=== PATIENT | female | born 1950 | race Caucasian/White ===

== ENCOUNTER 2018-01-07 15:55 | Inpatient (IN) | payer MEDICARE, SELFPAY ==
[2018-01-07] VITALS (28 sets, daily range): BP systolic 53–133; BP diastolic 36–92; PULSE 61–107; RESP 16–27; TEMP 36.4–37; O2SAT 85–100; BMI 16.9; BMI 18.1
--- NOTE | 2018-01-07 16:16 | EKG12_ITS ---
Test Reason : Blood Pressure : / mmHG Vent. Rate : 084 BPM Atrial Rate : 084 BPM P-R Int : 130 ms QRS Dur : 084 ms QT Int : 400 ms P-R-T Axes : -26 035 070 degrees QTc Int : 472 ms Normal sinus rhythm Normal ECG Confirmed by RACHEL HARMAN, HENRRY ([id number]), medical transcription editor GONZÁLEZ MCGRATH ([id number]) on 01/10/2018 2:55:25 PM Referred By: Estela Ferguson Confirmed By:HENRRY RAMOS MD
[2018-01-07] MEDS: 0.9% Normal Saline 1,000 ML 1000 ML IV (16:27)
[2018-01-07] MEDS: Ipratropium/Albuterol Sulfate 3 ML AMPUL.NEB INHALATION (16:36)
[2018-01-07] MEDS: Albuterol 2.5 MG/3 ML VIAL.NEB. INHALATION ×3 (16:36→17:21)
[2018-01-07 16:54] LABS: Absolute Lymphocyte Count 0.61 X10^3/ul (0.83-4.51); Absolute Neutrophil Count 16.8 X10^3/uL (2.0-7.7); Basophil# 0.02 X10^3/uL; Basophil% 0.1 % (0-1); Eosinophil# 0.01 X10^3/uL; Eosinophils% 0.1 % (0-5); Hematocrit 35.5 % (37-47); Hemoglobin 11.6 g/dl (12.0-15.0); Lymphocyte # 0.61 X10^3/ul (4.0); Lymphocyte % 3.3 % (19-41); Mean Corp Hgb Conc 32.7 g/gl (32-36); Mean Corpuscular Hgb 31.1 pg (27.0-32.0); Mean Corpuscular Volume 95.2 fL (81-99); Mean Platelet Vol. 9.4 fl (6.2-12.0); Monocyte# 1.11 X10^3/uL; Neutrophil # 16.84 X10^3/uL (2.7-7.7); Neutrophil % 90.2 % (47-70); POSITIVE COUNT NO; POSITIVE DIFFERENTIAL NO; POSITIVE MORPHOLOGY NO; Platelet Count 478 K/mm3 (150-450); RBC Distribution Width CV 12.5 % (11.6-14.6); RBC Distribution Width SD 42.1 fl (35.1-43.9); Red Blood Count 3.73 M/mm3 (4.2-5.4); White Blood Count 18.6 K/mm3 (4.4-11.0)
[2018-01-07 17:01] LABS: Base Excess 3 mmol/L (-2 to +2); Bicarbonate 27.7 mmol/L (22-26); Blood Gas Specimen Type ART; O2 Delivery Device Nasal Can; PO2 93 mmHG (75-100); SITE L Brachial; SO2 97 % (95-99); Time Given 1656; Total Carbon Dioxide 29 mmol/L; pCO2 43.9 mmHg (35-45); pH 7.41 (7.35-7.45)
[2018-01-07 17:10] LABS: AST(SGOT) 60 U/L (15-37); Alanine Aminotransfer ALT/SGPT 33 U/L (13-56); Albumin, Serum 2.5 g/dL (3.2-5.0); Alkaline Phosphatase 127 U/L (45-117); Anion Gap 8 (5-15); BUN 22 mg/dL (7-18); BUN/Creat Ratio 21.6 RATIO (10-20); Bilirubin, Direct < 0.05 mg/dL (0.00-0.30); Calcium,Total 9.2 mg/dL (8.5-10.1); Chloride 98 mmol/L (98-107); Creatinine, Serum 1.02 mg/dL (0.55-1.02); EST Glomerular Filtration Rate 57 mL/min (>60); Est Glom Filt Rate - Afr Amer 69 mL/min (>60); Estimated Creatinine Clearance 33.55 ml/min; Globulin 5.4 g/dL (2.2-4.2); Glucose 111 mg/dL (74-106); Lactic Acid 3.1 mmol/L (0.4-2.0); Potassium 3.8 mmol/L (3.5-5.1); Protein, Total 7.9 g/dL (6.4-8.2); Sodium Level 134 mmol/L (136-145)
--- NOTE | 2018-01-07 17:10 | RAD_ITS ---
STUDY: X-RAY CHEST REASON FOR EXAM: Female, 67 years old. Respiratory distress wheezing TECHNIQUE: PA and lateral views of the chest. COMPARISON: December 04, 2013 chest x-ray FINDINGS: There is a mass in the left upper lobe measuring 5.2 x 4.5 cm. There is a stable well-circumscribed nodular density in the right lower lobe measuring 4.1 mm. There is hyperinflation of the lungs. There are areas of emphysematous change. There is no demonstrated pleural abnormality. Normal size heart. Normal mediastinum and nancy. Normal visualized pulmonary arteries. Normal visualized aortic arch and descending thoracic aorta. Normal visualized thoracic spine. Normal visualized ribs, clavicles, and shoulders. There is no demonstrated abnormality of the visualized soft tissue structures of the upper abdomen. RAD/Chest PA and Lateral IMPRESSION: There is a new left upper lobe masslike density which may represent infection in an area of prior emphysematous change however lung cancer should be excluded. Recommend CT scan of the chest. Pulmonary emphysema chronic obstructive pulmonary disease. N.B. : The above information has been verbally conveyed by Razia Zuniga MD to Dr Jacques, Referring Physician, on 01/07/2018 17:34:03 (ET). Electronically Signed: Razia Zuniga MD at 17:30 EST Tel , Service support , N.B. : The above information has been verbally conveyed by Razia Zuniga MD to Dr Jacques, Referring Physician, on 01/07/2018 17:34:03 (ET).
--- NOTE | 2018-01-07 17:59 | PCM.HP.STD ---
Problem List (1) Septic shock Status: Acute (2) PNA (pneumonia) Status: Acute (3) Lung mass Status: Chronic (4) HTN (hypertension) Status: Chronic (5) COPD (chronic obstructive pulmonary disease) Status: Chronic (6) Hypoxia Status: Acute (7) Nicotine abuse Status: Acute (8) History of TIA (transient ischemic attack) Status: Acute History of Present Illness Date of Admission: 01/07/18 Chief Complaint: dizzy, abnormal CT The patient is a 67 year old F with a heavy smoking hx since age 10, currently 1 ppd, who presented to the ER after being told to come here by [facility] for an abnormal CT. She presented to the ER with dizziness and a cough. The CT she was sent for showed a MAX mass. She had a CXR which demonstrated a MAX mass. She has been dizzy for about a day. She notes that she has had an intermittent cough productive of clear sputum only. She has left sided chest pain when she coughs. She was placed on prednisone and albuterol about a week ago. In the ER she was hypotensive regardless of fluid administration, she had not taken her BP meds today. She does not normally use O2. She had recently been diagnosed with COPD. She continues to smoke 1 ppd. She denies recent fevers, chills, or night sweats. She has noticed a 20 pound weight loss since Mik. Past Medical History Past Medical History (Chronic Problems): Chronic Problems HTN (hypertension) (Chronic) COPD (chronic obstructive pulmonary disease) (Chronic) Lung mass (Chronic) Allergies JAZMINE Inhibitors Allergy (Verified 01/07/18 16:07) Angioedema erythromycin base Allergy (Verified 01/07/18 16:07) Hives vitamin A [From Retinol] Allergy (Verified 01/07/18 16:07) Itching Home Medications: Ambulatory Orders Medication Instructions Recorded Atorvastatin Calcium [Lipitor] 40 mg PO QHS 01/07/18 Azithromycin [Azithromycin] 250 mg PO DAILY 01/07/18 Clopidogrel Bisulfate [Plavix] 75 mg PO DAILY 01/07/18 Metoprolol Succinate 25 mg PO DAILY 01/07/18 Prednisone [Prednisone] 0 mg PO UD 01/07/18 Valsartan 80 mg PO DAILY 01/07/18 Surgical History: - - carotid endarterectomy left x 2 right x 1, leg stenting. 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 Denies: Chills, Fever HEENT: Denies: Head Aches, Sinus Congestion, Sinus Drainage Cardiovascular: Denies: Chest Pain, Palpitations Respiratory: Reports: Cough, Pleuritic Pain, Shortness of Breath. Denies: Shortness of breath at rest, Sputum production Gastrointestinal: Denies: Abdominal Pain, Nausea, Vomiting Genitourinary: Denies: Dysuria Musculoskeletal: Denies: Joint Pain, Joint Tenderness Skin: Denies: Rash, Wounds Neurological: Denies: Numbness, Tingling, Focal weakness Psychiatric: Denies: Anxiety, Depression, Homicidal Ideations, Suicidal Ideations Hematologic/ Lymphatic: Denies: Easy Bruising, Easy Bleeding VTE Information - Inpt Only VTE Present on Admission: No VTE Mechan Device Prophylaxis: SCD's VTE Pharm Prophylaxis ordered?: Yes Patient Problems: Active and Suspected Problems PNA (pneumonia) (Acute) Septic shock (Acute) Hypoxia (Acute) Nicotine abuse (Acute) History of TIA (transient ischemic attack) (Acute) - Physical Exam General: Alert, Oriented x3, Cooperative, - - cachectic HEENT: Atraumatic, PERRLA, EOMI, Normocephalic Neck: Supple, No JVD, Negative Carotid Bruits Lungs: Diminished, Wheezes Cardiovascular: Regular rate, No murmurs, - - left carotid bruit. Abdomen: Bowel Sounds Present, Soft, Non Tender Extremities: No edema, Capillary Refill Less than 3 Seconds Skin: No rashes, No breakdown Musculoskeletal: No Tenderness to Palpation of Joints or Extremities Neurological: Cranial nerves II-XII grossly intact Psych/Mental Status: Normal Affect, Appropriate, Alert and oriented to time, place, person, mood and affect Vital Signs Temp Pulse Resp BP Pulse Ox 97.9 F 85 18 66/50 L 90 01/07/18 15:56 01/07/18 17:07 01/07/18 17:07 01/07/18 16:06 01/07/18 16:06 Oxygen Delivery Method Nasal Cannula Weight: 40.823 kg Body Mass Index (BMI) 16.9 Laboratory Tests Past 24 Hrs 01/07/18 01/07/18 01/07/18 16:13 16:13 16:13 WBC 18.6 H RBC 3.73 L Hgb 11.6 L Hct 35.5 L MCV 95.2 MCH 31.1 MCHC 32.7 RDW 12.5 RDW Differential 42.1 Plt Count 478 H MPV 9.4 Immature Gran % (Auto) 0.300 Neut % (Auto) 90.2 H Lymph % (Auto) 3.3 L [place] % (Auto) 6.0 Eos % (Auto) 0.1 Baso % (Auto) 0.1 Absolute Neuts (auto) 16.8 H Absolute Lymphs (auto) 0.61 L Total Counted Not Reportable Specimen Type Sample Site pH Bicarbonate Actual POC Total CO2 Base Excess O2 Saturation ABG pCO2 ABG pO2 O2 Delivery Device Liter Flow Blood Gas Notified Whom Blood Gas Notified Time Sodium 134 L Potassium 3.8 Chloride 98 Carbon Dioxide 28.0 Anion Gap 8 BUN 22 H Creatinine 1.02 Estim Creat Clear Calc 33.55 Est GFR (MDRD) Af Amer 69 Est GFR (MDRD) Non-Af 57 L BUN/Creatinine Ratio 21.6 H Glucose 111 H Lactic Acid 3.1 H Calcium 9.2 Total Bilirubin 0.40 Direct Bilirubin < 0.05 AST 60 H ALT 33 Alkaline Phosphatase 127 H Total Protein 7.9 Albumin 2.5 L Globulin 5.4 H 01/07/18 16:57 WBC RBC Hgb Hct MCV MCH MCHC RDW RDW Differential Plt Count MPV Immature Gran % (Auto) Neut % (Auto) Lymph % (Auto) [place] % (Auto) Eos % (Auto) Baso % (Auto) Absolute Neuts (auto) Absolute Lymphs (auto) Total Counted Specimen Type ART Sample Site L Brachial pH 7.41 Bicarbonate Actual 27.7 H POC Total CO2 29 Base Excess 3 H O2 Saturation 97 ABG pCO2 43.9 ABG pO2 93 O2 Delivery Device Nasal Can Liter Flow 2.0 Blood Gas Notified Whom ED Blood Gas Notified Time 1656 Sodium Potassium Chloride Carbon Dioxide Anion Gap BUN Creatinine Estim Creat Clear Calc Est GFR (MDRD) Af Amer Est GFR (MDRD) Non-Af BUN/Creatinine Ratio Glucose Lactic Acid Calcium Total Bilirubin Direct Bilirubin AST ALT Alkaline Phosphatase Total Protein Albumin Globulin Assessment/Plan Active and Suspected Problems PNA (pneumonia) (Acute) Septic shock (Acute) Hypoxia (Acute) Nicotine abuse (Acute) History of TIA (transient ischemic attack) (Acute) 1. Acute septic shock 2/2 MAX pna - community acquired or possibly postobstructive PNA - pt hypotensive in ER with dizziness did not respond to fluids. Leukocytosis of 18.6, afebrile. LA 3.1. Repeat Lactate ordered. CXR shows MAX masslike density infection vs mass, pulmonary emphysema COPD. She has been on prednisone, albuterol, and azithromycin as outpatient. She has a cough productive of clear sputum. Currently stable on 2lpm O2, and initially was not hypoxic. She will be placed in the ICU on pressors with a consult to pulm/critical care, ER is starting central line. Continue IV fluids. Hold antihypertensives. Start Zosyn. Obtain Blood and sputum cultures. Check urine antigens. Check MRSA screen. Afebrile. ABG with pH of 7.41. Start IS, flutter valve, and mucinex. She denies hx of TB. 2. MAX mass - pulm consulted. highly suspicious for lung ca with current imaging and her hx of smoking and recent weight loss 3. Suspect underlying COPD with acute exacerbation - failed outpatient aerosols and prednisone. Solumedrol. Duonebs. Incentive spirometer. Wheezing on exam with diminished lung capacity. 4. Hx TIA - on asa statin 5. HTN - hold antihypertensives 2/2 #1. 6. Severe malnutrition - recent 20 lb weight loss. Thermal Cutter Hand eval for supplementation. 7. Carotid stenosis - prior endarterectomy left side x2 and right x1 - loud bruit on exam. DVT ppx: lovenox This patient was seen by Vinicius Saini PA-C under the supervision of Dr. Garcia
--- NOTE | 2018-01-07 18:14 | HP.PCM_ITS ---
Problem List (1) Septic shock Status: Acute (2) PNA (pneumonia) Status: Acute (3) Lung mass Status: Chronic (4) HTN (hypertension) Status: Chronic (5) COPD (chronic obstructive pulmonary disease) Status: Chronic (6) Hypoxia Status: Acute (7) Nicotine abuse Status: Acute (8) History of TIA (transient ischemic attack) Status: Acute History of Present Illness Date of Admission: 01/07/18 Chief Complaint: dizzy, abnormal CT The patient is a 67 year old F with a heavy smoking hx since age 10, currently 1 ppd, who presented to the ER after being told to come here by [facility] for an abnormal CT. She presented to the ER with dizziness and a cough. The CT she was sent for showed a MAX mass. She had a CXR which demonstrated a MAX mass. She has been dizzy for about a day. She notes that she has had an intermittent cough productive of clear sputum only. She has left sided chest pain when she coughs. She was placed on prednisone and albuterol about a week ago. In the ER she was hypotensive regardless of fluid administration, she had not taken her BP meds today. She does not normally use O2. She had recently been diagnosed with COPD. She continues to smoke 1 ppd. She denies recent fevers, chills, or night sweats. She has noticed a 20 pound weight loss since Mik. Past Medical History Past Medical History (Chronic Problems): Chronic Problems HTN (hypertension) (Chronic) COPD (chronic obstructive pulmonary disease) (Chronic) Lung mass (Chronic) Allergies JAZMINE Inhibitors Allergy (Verified 01/07/18 16:07) Angioedema erythromycin base Allergy (Verified 01/07/18 16:07) Hives vitamin A [From Retinol] Allergy (Verified 01/07/18 16:07) Itching Home Medications: Ambulatory Orders Medication Instructions Recorded Atorvastatin Calcium [Lipitor] 40 mg PO QHS 01/07/18 Azithromycin [Azithromycin] 250 mg PO DAILY 01/07/18 Clopidogrel Bisulfate [Plavix] 75 mg PO DAILY 01/07/18 Metoprolol Succinate 25 mg PO DAILY 01/07/18 Prednisone [Prednisone] 0 mg PO UD 01/07/18 Valsartan 80 mg PO DAILY 01/07/18 Surgical History: - - carotid endarterectomy left x 2 right x 1, leg stenting. 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 Denies: Chills, Fever HEENT: Denies: Head Aches, Sinus Congestion, Sinus Drainage Cardiovascular: Denies: Chest Pain, Palpitations Respiratory: Reports: Cough, Pleuritic Pain, Shortness of Breath. Denies: Shortness of breath at rest, Sputum production Gastrointestinal: Denies: Abdominal Pain, Nausea, Vomiting Genitourinary: Denies: Dysuria Musculoskeletal: Denies: Joint Pain, Joint Tenderness Skin: Denies: Rash, Wounds Neurological: Denies: Numbness, Tingling, Focal weakness Psychiatric: Denies: Anxiety, Depression, Homicidal Ideations, Suicidal Ideations Hematologic/ Lymphatic: Denies: Easy Bruising, Easy Bleeding VTE Information - Inpt Only VTE Present on Admission: No VTE Mechan Device Prophylaxis: SCD's VTE Pharm Prophylaxis ordered?: Yes Patient Problems: Active and Suspected Problems PNA (pneumonia) (Acute) Septic shock (Acute) Hypoxia (Acute) Nicotine abuse (Acute) History of TIA (transient ischemic attack) (Acute) - Physical Exam General: Alert, Oriented x3, Cooperative, - - cachectic HEENT: Atraumatic, PERRLA, EOMI, Normocephalic Neck: Supple, No JVD, Negative Carotid Bruits Lungs: Diminished, Wheezes Cardiovascular: Regular rate, No murmurs, - - left carotid bruit. Abdomen: Bowel Sounds Present, Soft, Non Tender Extremities: No edema, Capillary Refill Less than 3 Seconds Skin: No rashes, No breakdown Musculoskeletal: No Tenderness to Palpation of Joints or Extremities Neurological: Cranial nerves II-XII grossly intact Psych/Mental Status: Normal Affect, Appropriate, Alert and oriented to time, place, person, mood and affect Vital Signs Temp Pulse Resp BP Pulse Ox 97.9 F 85 18 66/50 L 90 01/07/18 15:56 01/07/18 17:07 01/07/18 17:07 01/07/18 16:06 01/07/18 16:06 Oxygen Delivery Method Nasal Cannula Weight: 40.823 kg Body Mass Index (BMI) 16.9 Laboratory Tests Past 24 Hrs 01/07/18 01/07/18 01/07/18 16:13 16:13 16:13 WBC 18.6 H RBC 3.73 L Hgb 11.6 L Hct 35.5 L MCV 95.2 MCH 31.1 MCHC 32.7 RDW 12.5 RDW Differential 42.1 Plt Count 478 H MPV 9.4 Immature Gran % (Auto) 0.300 Neut % (Auto) 90.2 H Lymph % (Auto) 3.[address] [place] % (Auto) 6.0 Eos % (Auto) 0.1 Baso % (Auto) 0.1 Absolute Neuts (auto) 16.8 H Absolute Lymphs (auto) 0.61 L Total Counted Not Reportable Specimen Type Sample Site pH Bicarbonate Actual POC Total CO2 Base Excess O2 Saturation ABG pCO2 ABG pO2 O2 Delivery Device Liter Flow Blood Gas Notified Whom Blood Gas Notified Time Sodium 134 L Potassium 3.8 Chloride 98 Carbon Dioxide 28.0 Anion Gap 8 BUN 22 H Creatinine 1.02 Estim Creat Clear Calc 33.55 Est GFR (MDRD) Af Amer 69 Est GFR (MDRD) Non-Af 57 L BUN/Creatinine Ratio 21.6 H Glucose 111 H Lactic Acid 3.1 H Calcium 9.2 Total Bilirubin 0.40 Direct Bilirubin < 0.05 AST 60 H ALT 33 Alkaline Phosphatase 127 H Total Protein 7.9 Albumin 2.5 L Globulin 5.4 H 01/07/18 16:57 WBC RBC Hgb Hct MCV MCH MCHC RDW RDW Differential Plt Count MPV Immature Gran % (Auto) Neut % (Auto) Lymph % (Auto) [place] % (Auto) Eos % (Auto) Baso % (Auto) Absolute Neuts (auto) Absolute Lymphs (auto) Total Counted Specimen Type ART Sample Site L Brachial pH 7.41 Bicarbonate Actual 27.7 H POC Total CO2 29 Base Excess 3 H O2 Saturation 97 ABG pCO2 43.9 ABG pO2 93 O2 Delivery Device Nasal Can Liter Flow 2.0 Blood Gas Notified Whom ED Blood Gas Notified Time 1656 Sodium Potassium Chloride Carbon Dioxide Anion Gap BUN Creatinine Estim Creat Clear Calc Est GFR (MDRD) Af Amer Est GFR (MDRD) Non-Af BUN/Creatinine Ratio Glucose Lactic Acid Calcium Total Bilirubin Direct Bilirubin AST ALT Alkaline Phosphatase Total Protein Albumin Globulin Assessment/Plan Active and Suspected Problems PNA (pneumonia) (Acute) Septic shock (Acute) Hypoxia (Acute) Nicotine abuse (Acute) History of TIA (transient ischemic attack) (Acute) 1. Acute septic shock 2/2 MAX pna - community acquired or possibly postobstructive PNA - pt hypotensive in ER with dizziness did not respond to fluids. Leukocytosis of 18.6, afebrile. LA 3.1. Repeat Lactate ordered. CXR shows MAX masslike density infection vs mass, pulmonary emphysema COPD. She has been on prednisone, albuterol, and azithromycin as outpatient. She has a cough productive of clear sputum. Currently stable on 2lpm O2, and initially was not hypoxic. She will be placed in the ICU on pressors with a consult to pulm/ critical care, ER is starting central line. Continue IV fluids. Hold antihypertensives. Start Zosyn. Obtain Blood and sputum cultures. Check urine antigens. Check MRSA screen. Afebrile. ABG with pH of 7.41. Start IS, flutter valve, and mucinex. She denies hx of TB. 2. MAX mass - pulm consulted. highly suspicious for lung ca with current imaging and her hx of smoking and recent weight loss 3. Suspect underlying COPD with acute exacerbation - failed outpatient aerosols and prednisone. Solumedrol. Duonebs. Incentive spirometer. Wheezing on exam with diminished lung capacity. 4. Hx TIA - on asa statin 5. HTN - hold antihypertensives 2/2 #1. 6. Severe malnutrition - recent 20 lb weight loss. 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 7. Carotid stenosis - prior endarterectomy left side x2 and right x1 - loud bruit on exam. DVT ppx: lovenox This patient was seen by Vinicius Saini PA-C under the supervision of Dr. Garcia
--- NOTE | 2018-01-07 18:19 | ED.VISSUMM ---
- ER Visit Summary Date of Service: 01/07/18 Chief Complaint: MsIsidro upon standing, shortness of breath, nonproductive cough History of Present Illness: The patient is a 67 F seen by her primary care provider and had an outpatient CAT scan which revealed a 3.9 x 1.6 x 4.1 cm left upper lobe mass. She is a smoker and started smoking at age of 10. She reports 20 pound unintentional weight loss. She complains of generalized weakness. She does complain of palpitations. She also claims of weakness. She has decreased appetite. She denies hematemesis, hematochezia. She denies dysuria, frequency, urgency or hematuria. Review of systems otherwise negative. Past medical history CVA, hypertension, hypercholesterolemia, peripheral vascular disease, hyponatremia and arthritis. Patient's had a right and left carotid endarterectomy performed by Dr. Olayinka Rivero. Physical Examination: Appears ill. She has no palpable radial, PT or DP pulses. She does have a palpable carotid pulse. She appears pale ill with acrocyanosis. She is tachypnic. Heart is regular without murmur, gallop or rub. Lungs reveal diminished breath sounds increased x-ray phase with wheezing noted. Daughter states the wheezing has been audible for the past 2 days. She noted increased shortness of breath 1 week ago. Edematous soft nontender. Neuro exam is nonfocal. Test Results: KG sinus rhythm rate 84 and normal. Chest x-ray reveals a left upper lobe mass with obstructive pneumonia. White count is 18.6 thousand with 90 segs and H&H 11.6 and 35.5. Electrode panel was marked for slight elevation of glucose 111 and slight decrease in sodium of 134. Blood gas reveals a increased AA gradient with no acid-base disturbance. Lactate elevated 3.1. Emergency Department Course and Treatment: Because patient was hypotensive she received 1 L of normal saline. She has received a total of 1500 cc of normal saline which is approximately 35 cc/kg. She still has no palpable distal pulses. For this reason patient was consented verbally for a right subclavian line. Using proper sterile technique and hospital protocol a 7.5 [place] triple-lumen was placed left subclavian vessel first attempt on the way end. Blood was aspirated from all 3 ports. Chest x-ray will be obtained to confirm position and evaluate for pneumothorax. Since patient is hypotensive concerned she has shock from a pulmonary source. Will obtain chest x-ray, UA and appropriate blood work. She received fluid bolus. Since she remains hypotensive after appropriate for the blow she was started on Levophed drip. Goal is a mean arterial pressure 65. Treatment Plan: Treatment for septic shock Procedures: 1. Left subclavian line 2. Critical care time 34 minutes Disposition: Admit ICU Impression: 1. Septic shock 2. Obstructive pneumonia secondary to 4.1 x 3.9 x 1.6 cm left upper lobe mass 3. Exacerbation of COPD with bronchospasm 4. Malnutrition 5. Anemia 6. History hypertension This note was generated with [employer] dictation software. It may contain incorrect words, spelling, and punctuation that were not noted in review of the chart prior to signing ED Disposition - Plan for ED Patient: Disposition: Acute Care Hospital [facility] Chief Complaint: Dizziness Referrals: [facility] Doctor,Out of [Primary Care Provider] -
--- NOTE | 2018-01-07 18:25 | ED.DCSUM_ITS ---
- ER Visit Summary Date of Service: 01/07/18 Chief Complaint: MsIsidro upon standing, shortness of breath, nonproductive cough History of Present Illness: The patient is a 67 F seen by her primary care provider and had an outpatient CAT scan which revealed a 3.9 x 1.6 x 4.1 cm left upper lobe mass. She is a smoker and started smoking at age of 10. She reports 20 pound unintentional weight loss. She complains of generalized weakness. She does complain of palpitations. She also claims of weakness. She has decreased appetite. She denies hematemesis, hematochezia. She denies dysuria, frequency, urgency or hematuria. Review of systems otherwise negative. Past medical history CVA, hypertension, hypercholesterolemia, peripheral vascular disease, hyponatremia and arthritis. Patient's had a right and left carotid endarterectomy performed by Dr. Olayinka Rivero. Physical Examination: Appears ill. She has no palpable radial, PT or DP pulses. She does have a palpable carotid pulse. She appears pale ill with acrocyanosis. She is tachypnic. Heart is regular without murmur, gallop or rub. Lungs reveal diminished breath sounds increased x-ray phase with wheezing noted. Daughter states the wheezing has been audible for the past 2 days. She noted increased shortness of breath 1 week ago. Edematous soft nontender. Neuro exam is nonfocal. Test Results: KG sinus rhythm rate 84 and normal. Chest x-ray reveals a left upper lobe mass with obstructive pneumonia. White count is 18.6 thousand with 90 segs and H&H 11.6 and 35.5. Electrode panel was marked for slight elevation of glucose 111 and slight decrease in sodium of 134. Blood gas reveals a increased AA gradient with no acid-base disturbance. Lactate elevated 3.1. Emergency Department Course and Treatment: Because patient was hypotensive she received 1 L of normal saline. She has received a total of 1500 cc of normal saline which is approximately 35 cc/kg. She still has no palpable distal pulses. For this reason patient was consented verbally for a right subclavian line. Using proper sterile technique and hospital protocol a 7.5 [place] triple- lumen was placed left subclavian vessel first attempt on the way end. Blood was aspirated from all 3 ports. Chest x-ray will be obtained to confirm position and evaluate for pneumothorax. Since patient is hypotensive concerned she has shock from a pulmonary source. Will obtain chest x-ray, UA and appropriate blood work. She received fluid bolus. Since she remains hypotensive after appropriate for the blow she was started on Levophed drip. Goal is a mean arterial pressure 65. Treatment Plan: Treatment for septic shock Procedures: 1. Left subclavian line 2. Critical care time 34 minutes Disposition: Admit ICU Impression: 1. Septic shock 2. Obstructive pneumonia secondary to 4.1 x 3.9 x 1.6 cm left upper lobe mass 3. Exacerbation of COPD with bronchospasm 4. Malnutrition 5. Anemia 6. History hypertension This note was generated with [employer] dictation software. It may contain incorrect words, spelling, and punctuation that were not noted in review of the chart prior to signing ED Disposition - Plan for ED Patient: Disposition: Acute Care Hospital [facility] Chief Complaint: Dizziness Referrals: [facility] Doctor,Out of [Primary Care Provider] -
--- NOTE | 2018-01-07 19:01 | ED.RN ---
1700-Unable to obtain BP at this time. No palpable radial pulse. Patient remains alert and talking with shallow and rapid respirations. Cont to monitor. 1814-Dr. Jacques to bedside for central line placement. TLC placed to left subclavian. Patient tolerated well. Patient remained alert throughout procedure.
--- NOTE | 2018-01-07 19:20 | NURSING ---
Pt arrives to ICU with ED nurse. Pt on 2L NC with no distress observed. Pt denies SOB or pain. Pt is oriented to room and demonstrates proper use of call light.
--- NOTE | 2018-01-07 19:38 | ED.RN ---
1900-Patient transported to ICU-1 with RN's x 2 without incident. Patient remained alert and talking throughout transport. Moved over to ICU bed without difficulty. Patient denies pain. Levo gtts and Levaquin as well as NS infusing upon admission. Update given and care transferred to ICU staff.
--- NOTE | 2018-01-07 19:48 | RAD_ITS ---
STUDY: X-RAY CHEST REASON FOR EXAM: Female, 67 years old. Left-sided pulmonary opacity. Septic shock. TECHNIQUE: Single AP portable view of the chest. COMPARISON: Same day 5:09 PM. FINDINGS: Left subclavian line terminates in the mid SVC. This was not present previously. No pneumothorax. Again seen is hyperexpansion of the lungs with evidence for severe COPD including bullous disease of the upper lobes. Again seen is a focal pulmonary opacity of the left upper lobe which could represent pneumonia or neoplasm. No changes since previous exam. No effusions. Normal size heart. Normal mediastinum and nancy. Normal visualized pulmonary arteries. Normal visualized aortic arch and descending thoracic aorta. Normal visualized thoracic spine. Normal visualized ribs, clavicles, and shoulders. There is no demonstrated abnormality of the visualized soft tissue structures of the upper abdomen. RAD/CXR for Line Placement IMPRESSION: A new left subclavian line terminates in the mid SVC. No other changes. Electronically Signed: Erik Mcclelland MD at 20:24 EST , Service support ,
[2018-01-07] MEDS: 0.9% Normal Saline 1,000 ML 175 ML IV (20:10)
[2018-01-07 20:26] LABS: Lactic Acid 1.9 mmol/L (0.4-2.0)
[2018-01-07 20:31] LABS: Reflex Lactate? Y
[2018-01-07 21:02] LABS: Red Blood Cells-Urine 0 SEEN /hpf (0-5); White Blood Cells 0 SEEN /hpf (0-5)
[2018-01-07 21:10] LABS: Color, Urine Yellow (Yellow); Glucose, Dipstick Normal (Normal); Ketone-Dipstick Negative (Negative); Leukocyte Esterase-Dipstick Negative /ul (Negative); Nitrite-Dipstick Negative (Negative); Occult Blood-Urine 25 /ul (Negative); Protein-Dipstick 30 mg/dl (Negative); Specific Gravity, Urine 1.015 (1.002-1.030); Urine Bilirubin Dipstick Negative (Negative); Urine Clarity Clear (Clear); Urine Urobilinogen Normal (Normal)
[2018-01-07] MEDS: 0.9% NaCl IVPB Med Flush (250 mL) 15 ML IV (21:35)
[2018-01-07] MEDS: Piperacil/Tazobactam 3.375 GM/50 ML ML IV (21:36)
[2018-01-07] MEDS: 0.9% NaCl Peripheral Flush Adult/Peds IV (21:37)
[2018-01-07] MEDS: Atorvastatin Calcium 40 MG Tablet PO (21:37)
[2018-01-07 21:40] LABS: Bacteria 1+ /hpf (None Seen); Squamous Epithelial Cells - UA 0-5 SEEN /hpf (5-10)
[2018-01-07 21:41] LABS: Mucous, Urine RARE /hpf (<or=2+)
[2018-01-07 23:00] LABS: M R Staph aureus DNA By PCR Negative (Negative); Probe Check PASS; Specimen Processing Control PASS
[2018-01-08] VITALS (52 sets, daily range): BP systolic 47–133; BP diastolic 37–90; PULSE 12–124; RESP 18–29; TEMP 36.3–37.8; O2SAT 93–99
[2018-01-08] MEDS: 0.9% Normal Saline 1,000 ML 175 ML IV (01:54)
[2018-01-08] MEDS: Piperacil/Tazobactam 3.375 GM/50 ML ML IV ×3 (05:39→21:08)
[2018-01-08] MEDS: 0.9% NaCl Peripheral Flush Adult/Peds IV ×2 (05:40→19:39)
--- NOTE | 2018-01-08 05:55 | RAD_ITS ---
STUDY: X-RAY CHEST REASON FOR EXAM: Female, 67 years old. Shortness of breath. Left-sided pneumonia. TECHNIQUE: Single AP portable view of the chest. COMPARISON: 01/07/2018. FINDINGS: There is a left subclavian central venous catheter with its tip in the superior vena cava. There is redemonstration of a left upper lobe infiltrate or mass, not significantly changed from the recent previous exams.. Lungs are hyperexpanded, consistent with COPD. There is no demonstrated pleural abnormality. Normal size heart. Normal mediastinum and nancy. Normal visualized pulmonary arteries. There is atherosclerotic calcification of the aortic arch with tortuosity. Normal visualized thoracic spine. Normal visualized ribs, clavicles, and shoulders. There is no demonstrated abnormality of the visualized soft tissue structures of the upper abdomen. RAD/Chest 1 View (Portable) IMPRESSION: Redemonstration of a left upper lobe infiltrate or mass, not significant changed from yesterday's exams. Suggestion of COPD. Central line is in stable position. Electronically Signed: Flaquito Mcfarlane MD at 5:31 EST , Service support ,
[2018-01-08 05:58] LABS: Hemoglobin 9.4 g/dl (12.0-15.0); Mean Corp Hgb Conc 32.4 g/gl (32-36); Mean Corpuscular Volume 95.7 fL (81-99); Mean Platelet Vol. 8.9 fl (6.2-12.0); Platelet Count 405 K/mm3 (150-450); RBC Distribution Width CV 12.2 % (11.6-14.6); RBC Distribution Width SD 41.3 fl (35.1-43.9); Red Blood Count 3.03 M/mm3 (4.2-5.4); White Blood Count 12.8 K/mm3 (4.4-11.0)
[2018-01-08 05:59] LABS: Scan Indicated on CBC? Y/N NO
[2018-01-08 06:01] LABS: International Normalized Ratio 1.1
[2018-01-08 06:08] LABS: Anion Gap 7 (5-15); BUN 11 mg/dL (7-18); BUN/Creat Ratio 18.9 RATIO (10-20); Calcium,Total 7.8 mg/dL (8.5-10.1); Chloride 105 mmol/L (98-107); Creatinine, Serum 0.58 mg/dL (0.55-1.02); EST Glomerular Filtration Rate 109 mL/min (>60); Est Glom Filt Rate - Afr Amer 132 mL/min (>60); Estimated Creatinine Clearance 36.13 ml/min; Glucose 86 mg/dL (74-106); Potassium 3.3 mmol/L (3.5-5.1); Sodium Level 140 mmol/L (136-145)
--- NOTE | 2018-01-08 06:26 | CON.PCM_ITS ---
Reason for Consult Date of Consultation: 01/08/18 Reason for Consultation: Septic shock/lung mass History of Present Illness: The patient is a 67-year-old female, with a history is outlined below, who presented to the emergency department on January 07 at the urging of her PCP due to an abnormal chest CT. The patient is currently being followed by [facility]. It appears that she was seen in their office on January 05 with complaints of an upper respiratory infection with symptoms including rhinorrhea , productive cough, wheezing and headache. The symptoms began on January 02. As part of her initial workup a plain film chest x-ray was obtained which showed an abnormality in the left upper lobe, for which he was recommended that a CT chest be obtained. On January 06, the patient underwent a contrasted chest CT at [facility], which per report revealed evidence of a spiculated right upper lobe mass measuring 3.9 x 4.1 cm. Patient also had radiographic evidence of bilateral upper lobe predominant emphysematous changes along with a density in the lingula and left lower lobe. The patient had an enlarged left hilar and right paratracheal lymph node. There is also incidental note of a soft tissue density measuring 1.7 x 2.3 cm in the subcutaneous tissue of the posterior chest at the level of the ninth rib. In addition to these radiographic findings , the patient went on to develop hypoxemia and hypotension, for which her primary care provider recommended that she present to the emergency department for evaluation. The patient is currently prescribed valsartan 80 mg and metoprolol succinate 100 mg on an outpatient basis. The patient does have a smoking history that includes 1 pack per day ?52 years. She does report decreased appetite and poor p.o. intake over the last 3 days. She has lost 20+ pounds over the last several months unintentionally. On presentation to the emergency department, the patient was noted to be afebrile but was hypotensive with an initial blood pressure of 77/36. She was initially saturating 90% on room air. Laboratory evaluation revealed elevated white blood cell count to 19,000 with an elevated platelet count to 478,000. Chemistry profile was largely within normal limits. Serum lactate was elevated at 3.1. Patient had an elevated AST of 60 and an alkaline phosphatase level of 127. Plain film chest x-ray did demonstrate the left upper lobe lung lesion. The patient received supplemental IV fluid hydration and a subclavian central venous catheter was placed. The patient was transiently placed on Levophed to maintain hemodynamic stability. The patient was provided with antibiotics and subsequently transferred to the medical intensive care unit for ongoing management. Of note, there is a CT chest in our system dated April 2014 which did demonstrate a subcutaneous mass in the right side of the back that measured 1 x 2.4 cm. There was also note of an 8 mm groundglass density noted in the left upper lobe at that time. It does not appear that follow-up chest imaging was ever obtained following this initial chest scan. Past Medical History Past Medical History (Chronic Problems): Chronic Problems HTN (hypertension) (Chronic) COPD (chronic obstructive pulmonary disease) (Chronic) Lung mass (Chronic) Allergies JAZMINE Inhibitors Allergy (Verified 01/07/18 18:58) cough erythromycin base Allergy (Verified 01/07/18 18:58) Hives vitamin A [From Retinol] Allergy (Verified 01/07/18 16:07) Itching Home Medications: Ambulatory Orders Medication Instructions Recorded Albuterol Aerosols [Ventolin 2.5 mg INHALATION Q4H PRN PRN 01/07/18 Aerosols] Atorvastatin Calcium [Lipitor] 40 mg PO QHS 01/07/18 Azithromycin [Azithromycin] 250 mg PO DAILY 01/07/18 Clopidogrel Bisulfate [Plavix] 75 mg PO DAILY 01/07/18 Metoprolol(XL)Succ [Toprol Xl 100 mg PO DAILY 01/07/18 (Beta Lashawn)] Prednisone [Prednisone] See Taper PO UD 01/07/18 Triamcinolone 0.1% Cream [Kenalog] 1 applic TOPICAL TID PRN 01/07/18 Valsartan 80 mg PO DAILY 01/07/18 Surgical History: - - carotid endarterectomy left x 2 right x 1, leg stenting. Psychiatric History: No pertinent psych hx [employer] History: No pertinent [employer] history Smoking Status: Current every day smoker Review of Systems Constitutional: Reports: Weight Change, Fatigue. Denies: Chills, Fever Eyes: Denies: Blurred vision, Double vision HEENT: Denies: Head Aches, Sinus Congestion, Sinus Drainage Cardiovascular: Denies: Chest Pain, Palpitations Respiratory: Reports: Cough, Shortness of Breath, Wheezing. Denies: Sputum production Gastrointestinal: Denies: Abdominal Pain, Nausea, Vomiting Genitourinary: Denies: Dysuria Musculoskeletal: Denies: Joint Pain, Joint Tenderness Skin: Denies: Rash, Wounds Neurological: Denies: Numbness, Tingling, Focal weakness Psychiatric: Denies: Anxiety, Depression, Homicidal Ideations, Suicidal Ideations Hematologic/ Lymphatic: Reports: Anemia Patient Problems: Active and Suspected Problems PNA (pneumonia) (Acute) Septic shock (Acute) Hypoxia (Acute) Nicotine abuse (Acute) History of TIA (transient ischemic attack) (Acute) Objective: The patient's most recent lab work, culture data and imaging studies have all been personally reviewed. Strep and urine Legionella antigens were both negative. Blood and urine cultures are pending. Respiratory viral panel is pending. - Physical Exam General: Alert, Oriented x3, Cooperative, No apparent distress HEENT: Atraumatic, PERRLA, Normocephalic Oral: No Gingival or Mucosal Lesions/ Ulcerations, - - Poor generalized dentition Neck: Supple, No Nodes, Trachea Midline, - - Subclavian central venous catheter in place Lungs: No rhonchi, No wheeze, No rales, Diminished Cardiovascular: Regular rate, Regular Rhythm, Normal S1, Normal S2, No murmurs Abdomen: Bowel Sounds Present, Soft, Non Tender, Non-Distended Extremities: No clubbing, No cyanosis, No edema Skin: No rashes, No breakdown Musculoskeletal: No Tenderness to Palpation of Joints or Extremities Lymphatic: No Cervical, Supraclavicular, or Inguinal Adenopathy Neurological: Neuro grossly intact Psych/Mental Status: Normal Affect, Appropriate Vital Signs Temp Pulse Resp BP Pulse Ox 97.5 F L 72 25 H 118/75 98 01/08/18 06:00 01/08/18 06:00 01/08/18 06:00 01/08/18 06:00 01/08/18 06:00 Oxygen Flow Rate (L/min) 1 Oxygen Delivery Method Room Air Weight: 95 lb 0.308 oz Body Mass Index (BMI) 18.1 Intake and Output for Last 24 Hours 01/06/18 01/07/18 01/08/18 23:59 23:59 23:59 Intake Total 1264 / 1264 1158 / 1158 Output Total 450 / 450 250 / 250 Balance 814 / 814 908 / 908 Microbiology Past 72 Hours 01/07/18 20:45 Streptococcus pneumoniae Antigen (M - Final Urine Catheter - Mello 01/07/18 20:45 Legionella Antigen - Final Urine Catheter - Mello Laboratory Tests Past 24 Hrs 01/07/18 01/07/18 01/07/18 19:40 19:40 20:45 WBC RBC Hgb Hct MCV MCH MCHC RDW RDW Differential Plt Count MPV PT INR APTT Sodium Potassium Chloride Carbon Dioxide Anion Gap BUN Creatinine Estim Creat Clear Calc Est GFR (MDRD) Af Amer Est GFR (MDRD) Non-Af BUN/Creatinine Ratio Glucose Lactic Acid 1.9 Calcium Urine Color Yellow Urine Clarity Clear Urine pH 5.[address] [place] 1.015 Urine Protein 30 H Urine Glucose (UA) Normal Urine Ketones Negative Urine Occult Blood 25 H Urine Nitrite Negative Urine Bilirubin Negative Urine Urobilinogen Normal Ur Leukocyte Esterase Negative Urine RBC 0 SEEN Urine WBC 0 SEEN Ur Squamous Epith Cells 0-5 SEEN Urine Bacteria 1+ Urine Mucus RARE MRSA (PCR) Negative 01/08/18 01/08/18 01/08/18 05:45 05:45 05:45 WBC 12.8 H RBC 3.03 L Hgb 9.4 L Hct 29.0 L MCV 95.7 MCH 31.0 MCHC 32.4 RDW 12.2 RDW Differential 41.3 Plt Count 405 MPV 8.9 PT 14.0 INR 1.1 APTT 33.0 Sodium 140 Potassium 3.3 L Chloride 105 Carbon Dioxide 28.0 Anion Gap 7 BUN 11 Creatinine 0.58 Estim Creat Clear Calc 36.13 Est GFR (MDRD) Af Amer 132 Est GFR (MDRD) Non-Af 109 BUN/Creatinine Ratio 18.9 Glucose 86 Lactic Acid Calcium 7.8 L Urine Color Urine Clarity Urine pH Ur Specific [place] Urine Protein Urine Glucose (UA) Urine Ketones Urine Occult Blood Urine Nitrite Urine Bilirubin Urine Urobilinogen Ur Leukocyte Esterase Urine RBC Urine WBC Ur Squamous Epith Cells Urine Bacteria Urine Mucus MRSA (PCR) Clinical Impression(s) from Imaging Studies Chest X-Ray 01/07/18 17:10 IMPRESSION: There is a new left upper lobe masslike density which may represent infection in an area of prior emphysematous change however lung cancer should be excluded. Recommend CT scan of the chest. Pulmonary emphysema chronic obstructive pulmonary disease. N.B. : The above information has been verbally conveyed by Razia Zuniga MD to Dr Jacques, Referring Physician, on 01/07/2018 17:34:03 (ET). Electronically Signed: Razia Zuniga MD at 17:30 EST Tel , Service support , N.B. : The above information has been verbally conveyed by Razia Zuniga MD to Dr Jacques, Referring Physician, on 01/07/2018 17:34:03 (ET). Chest X-Ray 01/07/18 19:48 IMPRESSION: A new left subclavian line terminates in the mid SVC. No other changes. Electronically Signed: Erik Mcclelland MD at 20:24 EST , Service support , Chest X-Ray 01/08/18 05:55 IMPRESSION: Redemonstration of a left upper lobe infiltrate or mass, not significant changed from yesterday's exams. Suggestion of COPD. Central line is in stable position. Electronically Signed: Flaquito Mcfarlane MD at 5:31 EST , Service support , Assessment/Plan Active and Suspected Problems PNA (pneumonia) (Acute) Septic shock (Acute) Hypoxia (Acute) Nicotine abuse (Acute) History of TIA (transient ischemic attack) (Acute) RECOMMENDATIONS: 1. Obtain physical CD containing CT chest images for my review. 2. Continue antibiotics and aerosol treatments, pending infectious workup 3. Potassium repletion 4. Encourage p.o. intake 5. Check and document orthostatic vital signs 6. Consider removal of central venous catheter IMPRESSIONS: 1. Septic shock There was initial concern that the patient's left upper lobe lung lesion could represent an infection versus malignancy. She did present to the emergency department in a hypotensive state. Although this may be related to an underlying pulmonary infectious process, it could also be the consequence of general intravascular volume depletion from poor p.o. intake, coupled with polypharmacy for hypertension. The patient is on both valsartan and a beta- lashawn on an outpatient basis. The patient has been weaned from levophed and is currently hemodynamically stable. 2. Left upper lobe lung mass Given the patient's smoking history, this is certainly concerning for an underlying malignancy. Recommend direct tissue biopsy. The patient's family will obtain the physical CD containing the chest images for my review. Options include CT-guided lung biopsy versus EBUS, if there is extensive mediastinal and /or hilar lymphadenopathy. Further recommendations will be forthcoming, pending my review of the patient's CT chest. 3. Continuous tobacco dependence The patient has an extensive smoking history of 50+ pack years. Smoking cessation is advised. 4. Presumptive COPD Although the patient has been told that she has COPD previously, she has never undergone formal pulmonary function testing. Recommend close outpatient follow- up so that baseline PFTs can be obtained. For now, agree with continuing duo nebs and budesonide. 5. Hypokalemia Electrolyte repletion as indicated. Recheck level in the morning. 6. Personal history of hypertension Hold antihypertensive medications for now. This note was generated with [employer] dictation software. It may contain incorrect words, spelling, and punctuation that were not noted in checking the note before signing. Code Visit Inpatient E&M: 22961 Init Hosp L3
[2018-01-08] MEDS: Ipratropium/Albuterol Sulfate 3 ML AMPUL.NEB INHALATION ×3 (07:22→19:53)
[2018-01-08] MEDS: Budesonide Respules 0.5 MG/2 ML AMPUL.NEB. INHALATION ×2 (07:22→19:53)
[2018-01-08] MEDS: 0.9% Normal Saline 1,000 ML 999 ML IV (08:14)
[2018-01-08] MEDS: Clopidogrel Bisulfate 75 MG Tablet PO (12:02)
--- NOTE | 2018-01-08 14:16 | PN_ITS ---
Patient Problems: Active and Suspected Problems PNA (pneumonia) (Acute) Septic shock (Acute) Hypoxia (Acute) Nicotine abuse (Acute) History of TIA (transient ischemic attack) (Acute) Subjective: Patient seen and examined today in ICU, she has no complaints of any shortness of breath today. Patient's white blood cell count this morning has decreased from yesterday, blood pressure remains a problem at times, patient was given a fluid bolus this morning, she is no longer on any pressor agents critical care physician's notes were reviewed. - Physical Exam General: Alert, Oriented x3, Cooperative, No apparent distress, Well developed HEENT: Atraumatic, PERRLA, EOMI, Normocephalic Oral: Moist Mucosa Neck: Supple, No JVD, No Nuchal Rigidity, Trachea Midline, Thyroid Normal Size and Texture Lungs: Clear to auscultation, Normal air movement, No rhonchi, No wheeze, No rales Cardiovascular: Regular rate, Regular Rhythm, Normal S1, Normal S2, No murmurs, No Ectopic Activity, PMI Normal, No rub noted, No Gallop Abdomen: Bowel Sounds Present, Soft, Non Tender, Non-Distended, No hernias noted Extremities: No clubbing, No cyanosis, No edema, Capillary Refill Less than 3 Seconds Skin: No rashes, No breakdown Musculoskeletal: No Tenderness to Palpation of Joints or Extremities Neurological: Cranial nerves II-XII grossly intact, Neuro grossly intact, Sensory exam intact to light touch and pain, Coordination normal Psych/Mental Status: Normal Affect, Appropriate, Alert and oriented to time, place, person, mood and affect Vital Signs Temp Pulse Resp BP Pulse Ox 98.0 F 109 H 20 H 77/57 L 99 01/08/18 13:00 01/08/18 13:31 01/08/18 13:31 01/08/18 13:00 01/08/18 13:31 Oxygen Flow Rate (L/min) 1 Oxygen Delivery Method Room Air Weight: 43.1 kg Body Mass Index (BMI) 18.1 Orthostatic Vital Signs Start: 01/08/18 12:08 Freq: q24h Status: Active Protocol: Activity Type Activity Date Activity User E-Sign Co-Sign Detail Recorded Client Recorded Date Recorded By Document 01/08/18 12:08 FRED [id number] 01/08/18 12:19 FRED 01/08/18 12:08 Orthostatic Vitals Standing -Blood Pressure (90/60-120/80 mm Hg) 98/67 -Extremity Use Left Arm -Pulse Rate (60-100 beats/min) 93 Sitting -Blood Pressure (90/60-120/80 mm Hg) 97/68 -Extremity Use Left Arm -Pulse Rate (60-100 beats/min) 94 Lying -Blood Pressure (90/60-120/80 mm Hg) 93/60 -Extremity Use Left Arm -Pulse Rate (60-100 beats/min) 92 Intake and Output for Last 24 Hours 01/06/18 01/07/18 01/08/18 23:59 23:59 23:59 Intake Total 1264 / 1264 3478.9 / 3478.9 Output Total 450 / 450 700 / 700 Balance 814 / 814 2778.9 / 2778.9 Microbiology Past 72 Hours 01/08/18 10:20 Gram Stain - Final Sputum, Expectorated/Coughed 01/08/18 07:30 Respiratory Panel (PCR) - Final Mucosa - Nose 01/07/18 20:45 Streptococcus pneumoniae Antigen (M - Final Urine Catheter - Mello 01/07/18 20:45 Legionella Antigen - Final Urine Catheter - Mello Laboratory Tests Past 24 Hrs 01/07/18 01/07/18 01/07/18 19:40 19:40 20:45 WBC RBC Hgb Hct MCV MCH MCHC RDW RDW Differential Plt Count MPV PT INR APTT Sodium Potassium Chloride Carbon Dioxide Anion Gap BUN Creatinine Estim Creat Clear Calc Est GFR (MDRD) Af Amer Est GFR (MDRD) Non-Af BUN/Creatinine Ratio Glucose Lactic Acid 1.9 Calcium Urine Color Yellow Urine Clarity Clear Urine pH 5.0 Ur Specific [place] 1.015 Urine Protein 30 H Urine Glucose (UA) Normal Urine Ketones Negative Urine Occult Blood 25 H Urine Nitrite Negative Urine Bilirubin Negative Urine Urobilinogen Normal Ur Leukocyte Esterase Negative Urine RBC 0 SEEN Urine WBC 0 SEEN Ur Squamous Epith Cells 0-5 SEEN Urine Bacteria 1+ Urine Mucus RARE MRSA (PCR) Negative 01/08/18 01/08/18 01/08/18 05:45 05:45 05:45 WBC 12.8 H RBC 3.03 L Hgb 9.4 L Hct 29.0 L MCV 95.7 MCH 31.0 MCHC 32.4 RDW 12.2 RDW Differential 41.3 Plt Count 405 MPV 8.9 PT 14.0 INR 1.1 APTT 33.0 Sodium 140 Potassium 3.3 L Chloride 105 Carbon Dioxide 28.0 Anion Gap 7 BUN 11 Creatinine 0.58 Estim Creat Clear Calc 36.13 Est GFR (MDRD) Af Amer 132 Est GFR (MDRD) Non-Af 109 BUN/Creatinine Ratio 18.9 Glucose 86 Lactic Acid Calcium 7.8 L Urine Color Urine Clarity Urine pH Ur Specific [place] Urine Protein Urine Glucose (UA) Urine Ketones Urine Occult Blood Urine Nitrite Urine Bilirubin Urine Urobilinogen Ur Leukocyte Esterase Urine RBC Urine WBC Ur Squamous Epith Cells Urine Bacteria Urine Mucus MRSA (PCR) Assessment/Plan Active and Suspected Problems PNA (pneumonia) (Acute) Septic shock (Acute) Hypoxia (Acute) Nicotine abuse (Acute) History of TIA (transient ischemic attack) (Acute) #1 septic shock secondary to community-acquired pneumonia-continue IV antibiotics, continue to monitor blood pressure in the ICU, monitor labs, pulmonary medicine is participating in her care #2 left upper lobe community-acquired pneumonia-suspect postobstructive in nature, await sputum culture results, await blood culture results, day #2 #3 chronic obstructive pulmonary disease #4 left upper lobe mass-probably carcinoma, workup per pulmonary medicine #5 hypokalemia-this is mild, patient was given potassium #6 hypoxia-resolved at this time, patient is on room air #7 cachexia-secondary to suspected lung cancer, nutrition services is seeing patient #8 essential hypertension-patient's blood pressure medications are held at this time due to hypotension Code Visit Inpatient E&M: 34095 Subs Hosp L2
[2018-01-08] MEDS: Atorvastatin Calcium 40 MG Tablet PO (21:08)
[2018-01-09] VITALS (38 sets, daily range): BP systolic 54–122; BP diastolic 40–90; PULSE 91–123; RESP 11–27; TEMP 36.7–37.4; O2SAT 91–100
[2018-01-09] MEDS: Ipratropium/Albuterol Sulfate 3 ML AMPUL.NEB INHALATION ×4 (00:57→19:26)
--- NOTE | 2018-01-09 04:30 | NURSING ---
Patient complaining of left upper rib pain on inspiration, no chest pain, wheezes in anterior lower lobes, denies needs for pain medication. Dr. Ruiz made aware, troponin and CXR ordered stat.
[2018-01-09 04:32] LABS: Absolute Lymphocyte Count 1.25 X10^3/ul (0.83-4.51); Absolute Neutrophil Count 7.8 X10^3/uL (2.0-7.7); Basophil# 0.01 X10^3/uL; Basophil% 0.1 % (0-1); Eosinophil# 0.03 X10^3/uL; Eosinophils% 0.3 % (0-5); Hematocrit 31.1 % (37-47); Hemoglobin 10.1 g/dl (12.0-15.0); Lymphocyte # 1.25 X10^3/ul (4.0); Mean Corp Hgb Conc 32.5 g/gl (32-36); Mean Corpuscular Hgb 30.6 pg (27.0-32.0); Mean Corpuscular Volume 94.2 fL (81-99); Mean Platelet Vol. 8.6 fl (6.2-12.0); Monocyte# 1.28 X10^3/uL; Monocyte% 12.3 % (0-10); Neutrophil % 75.1 % (47-70); Platelet Count 456 K/mm3 (150-450); RBC Distribution Width CV 12.4 % (11.6-14.6); RBC Distribution Width SD 41.4 fl (35.1-43.9); White Blood Count 10.4 K/mm3 (4.4-11.0)
--- NOTE | 2018-01-09 04:37 | RAD_ITS ---
STUDY: X-RAY CHEST REASON FOR EXAM: Female, 67 years old. Left rib pain upon inspiration. TECHNIQUE: Single AP portable view of the chest. COMPARISON: 01/08/2018. 01/07/2018. FINDINGS: There is a left subclavian central venous catheter with its tip in the proximal superior vena cava. There is redemonstration of an infiltrate versus mass lesion in the left upper lung field. Appearance is not visibly changed from recent prior exams. The lungs are mildly hyperexpanded, suggesting COPD. There is no demonstrated pleural abnormality. Normal size heart. Normal mediastinum and nancy. Normal visualized pulmonary arteries. There is atherosclerotic calcification of the aortic arch with tortuosity. There are no visualized acute osseous abnormalities. There is no demonstrated abnormality of the visualized soft tissue structures of the upper abdomen. RAD/Chest 1 View (Portable) IMPRESSION: Redemonstration of a rounded infiltrate or mass in the left upper lung field, not significant changed over the last few days. Consider CT scan chest for further evaluation. Suggestion of COPD. Central venous catheter. Electronically Signed: Flaquito Mcfarlane MD at 6:22 EDT , Service support ,
[2018-01-09 04:40] LABS: POSITIVE COUNT NO; POSITIVE DIFFERENTIAL NO; POSITIVE MORPHOLOGY NO
[2018-01-09 04:47] LABS: Anion Gap 9 (5-15); BUN 9 mg/dL (7-18); BUN/Creat Ratio 13.5 RATIO (10-20); Calcium,Total 8.2 mg/dL (8.5-10.1); Chloride 98 mmol/L (98-107); Creatinine, Serum 0.67 mg/dL (0.55-1.02); EST Glomerular Filtration Rate 93 mL/min (>60); Est Glom Filt Rate - Afr Amer 112 mL/min (>60); Estimated Creatinine Clearance 36.13 ml/min; Glucose 81 mg/dL (74-106); Potassium 3.1 mmol/L (3.5-5.1); Sodium Level 136 mmol/L (136-145)
[2018-01-09] MEDS: Piperacil/Tazobactam 3.375 GM/50 ML ML IV ×3 (05:05→21:35)
--- NOTE | 2018-01-09 06:20 | PN_ITS ---
Subjective: The patient was seen and examined at the bedside this morning. Events from the last 24 hours have been reviewed. The patient was febrile in the last 24 hours with a T-max of 100?F. She remains tachycardic but hemodynamically stable. She is currently maintaining appropriate oxygen saturations on room air. The patient's blood pressures have been exceedingly labile over the last 24 hours. She was restarted on Levophed for very short period of time overnight. Her appetite and p.o. intake remain poor. The patient's CT chest from [facility] was obtained and personally reviewed this morning. The patient did have a mild degree of left hilar lymphadenopathy along with a pretracheal enlarged lymph node. She had a large left upper lobe spiculated lung mass, which was spiculated in appearance with surrounding emphysematous changes. Objective: The patient's most recent lab work, culture data and imaging studies have all been personally reviewed. Strep and urine Legionella antigens were both negative. Respiratory viral panel was negative. Blood and urine cultures have shown no growth to date. Expectorated sputum culture revealed 3+ white blood cells without organisms. On January 06, the patient underwent a contrasted chest CT at [facility], which per report revealed evidence of a spiculated left upper lobe mass measuring 3.9 x 4.1 cm. Patient also had radiographic evidence of bilateral upper lobe predominant emphysematous changes along with a density in the lingula and left lower lobe. The patient had an enlarged left hilar and right paratracheal lymph node. There is also incidental note of a soft tissue density measuring 1.7 x 2.3 cm in the subcutaneous tissue of the posterior chest at the level of the ninth rib. CT chest in our system dated April 2014 which did demonstrate a subcutaneous mass in the right side of the back that measured 1 x 2.4 cm. There was also note of an 8 mm groundglass density noted in the left upper lobe at that time. General: Alert, Oriented x3, Cooperative, No apparent distress HEENT: Atraumatic, PERRLA, Normocephalic Oral: Moist Mucosa, No Gingival or Mucosal Lesions/ Ulcerations Neck: Supple, No Nodes, Trachea Midline, - - Central venous catheter remains in place Lungs: No rhonchi, No wheeze, No rales, Diminished Cardiovascular: Normal S1, Normal S2, No murmurs, Tachycardic Abdomen: Bowel Sounds Present, Soft, Non Tender Extremities: No clubbing, No cyanosis, No edema Skin: No rashes, No breakdown Musculoskeletal: No Tenderness to Palpation of Joints or Extremities Neurological: Neuro grossly intact Psych/Mental Status: Normal Affect, Appropriate Vital Signs Temp Pulse Resp BP Pulse Ox 99.1 F 121 H 25 H 98/67 93 01/09/18 06:00 01/09/18 06:00 01/09/18 06:00 01/09/18 06:00 01/09/18 06:00 Oxygen Flow Rate (L/min) 1 Oxygen Delivery Method Room Air Weight: 95 lb 14.417 oz Body Mass Index (BMI) 18.1 Orthostatic Vital Signs Start: 01/08/18 12:08 Freq: q24h Status: Active Protocol: Activity Type Activity Date Activity User E-Sign Co-Sign Detail Recorded Client Recorded Date Recorded By Document 01/08/18 12:08 [facility] [id number] 01/08/18 12:19 [facility] 01/08/18 12:08 Orthostatic Vitals Standing -Blood Pressure (90/60-120/80) 98/67 -Extremity Use Left Arm -Pulse Rate (60-100) 93 Sitting -Blood Pressure (90/60-120/80) 97/68 -Extremity Use Left Arm -Pulse Rate (60-100) 94 Lying -Blood Pressure (90/60-120/80) 93/60 -Extremity Use Left Arm -Pulse Rate (60-100) 92 Intake and Output for Last 24 Hours 01/07/18 01/08/18 01/10/18 23:59 23:59 00:59 Intake Total 1264 / 1264 3820.5 / 3820.5 51.3 / 51.3 Output Total 450 / 450 2150 / 2150 650 / 650 Balance 814 / 814 1670.5 / 1670.5 -598.7 / -598.7 Labs (Last 48 Hours) 01/07/18 01/07/18 01/07/18 19:40 19:40 20:45 WBC RBC Hgb Hct MCV MCH MCHC RDW RDW Differential Plt Count MPV Immature Gran % (Auto) Neut % (Auto) Lymph % (Auto) Nye % (Auto) Eos % (Auto) Baso % (Auto) Absolute Neuts (auto) Absolute Lymphs (auto) Total Counted PT INR APTT Sodium Potassium Chloride Carbon Dioxide Anion Gap BUN Creatinine Estim Creat Clear Calc Est GFR (MDRD) Af Amer Est GFR (MDRD) Non-Af BUN/Creatinine Ratio Glucose Lactic Acid 1.9 Calcium Troponin I Urine Color Yellow Urine Clarity Clear Urine pH 5.0 Ur Specific [place] 1.015 Urine Protein 30 H Urine Glucose (UA) Normal Urine Ketones Negative Urine Occult Blood 25 H Urine Nitrite Negative Urine Bilirubin Negative Urine Urobilinogen Normal Ur Leukocyte Esterase Negative Urine RBC 0 SEEN Urine WBC 0 SEEN Ur Squamous Epith Cells 0-5 SEEN Urine Bacteria 1+ Urine Mucus RARE MRSA (PCR) Negative 01/08/18 01/08/18 01/08/18 05:45 05:45 05:45 WBC 12.8 H RBC 3.03 L Hgb 9.4 L Hct 29.0 L MCV 95.7 MCH 31.0 MCHC 32.4 RDW 12.2 RDW Differential 41.3 Plt Count 405 MPV 8.9 Immature Gran % (Auto) Neut % (Auto) Lymph % (Auto) Nye % (Auto) Eos % (Auto) Baso % (Auto) Absolute Neuts (auto) Absolute Lymphs (auto) Total Counted PT 14.0 INR 1.1 APTT 33.0 Sodium 140 Potassium 3.3 L Chloride 105 Carbon Dioxide 28.0 Anion Gap 7 BUN 11 Creatinine 0.58 Estim Creat Clear Calc 36.13 Est GFR (MDRD) Af Amer 132 Est GFR (MDRD) Non-Af 109 BUN/Creatinine Ratio 18.9 Glucose 86 Lactic Acid Calcium 7.8 L Troponin I Urine Color Urine Clarity Urine pH Ur Specific [place] Urine Protein Urine Glucose (UA) Urine Ketones Urine Occult Blood Urine Nitrite Urine Bilirubin Urine Urobilinogen Ur Leukocyte Esterase Urine RBC Urine WBC Ur Squamous Epith Cells Urine Bacteria Urine Mucus MRSA (PCR) 01/09/18 01/09/18 01/09/18 04:20 04:20 04:20 WBC 10.4 RBC 3.30 L Hgb 10.1 L Hct 31.1 L MCV 94.2 MCH 30.6 MCHC 32.5 RDW 12.4 RDW Differential 41.4 Plt Count 456 H MPV 8.6 Immature Gran % (Auto) 0.200 Neut % (Auto) 75.1 H Lymph % (Auto) 12.0 L Nye % (Auto) 12.3 H Eos % (Auto) 0.3 Baso % (Auto) 0.1 Absolute Neuts (auto) 7.8 H Absolute Lymphs (auto) 1.25 Total Counted Not Reportable PT INR APTT Sodium 136 Potassium 3.1 L Chloride 98 Carbon Dioxide 29.0 Anion Gap 9 BUN 9 Creatinine 0.67 Estim Creat Clear Calc 36.13 Est GFR (MDRD) Af Amer 112 Est GFR (MDRD) Non-Af 93 BUN/Creatinine Ratio 13.5 Glucose 81 Lactic Acid Calcium 8.2 L Troponin I < 0.02 Urine Color Urine Clarity Urine pH Ur Specific [place] Urine Protein Urine Glucose (UA) Urine Ketones Urine Occult Blood Urine Nitrite Urine Bilirubin Urine Urobilinogen Ur Leukocyte Esterase Urine RBC Urine WBC Ur Squamous Epith Cells Urine Bacteria Urine Mucus MRSA (PCR) Microbiology 01/08/18 10:20 Sputum, Expectorated/Coughed Gram Stain - Final 01/08/18 07:30 Mucosa - Nose Respiratory Panel (PCR) - Final 01/07/18 20:45 Urine Catheter - Mello Streptococcus pneumoniae Antigen (M - Final 01/07/18 20:45 Urine Catheter - Mello Legionella Antigen - Final Clinical Impression(s) from Imaging Studies Chest X-Ray 01/07/18 17:10 IMPRESSION: There is a new left upper lobe masslike density which may represent infection in an area of prior emphysematous change however lung cancer should be excluded. Recommend CT scan of the chest. Pulmonary emphysema chronic obstructive pulmonary disease. N.B. : The above information has been verbally conveyed by Razia Zuniga MD to Dr Jacques, Referring Physician, on 01/07/2018 17:34:03 (ET). Electronically Signed: Razia Zuniga MD at 17:30 EST Tel , Service support , N.B. : The above information has been verbally conveyed by Razia Zuniga MD to Dr Jacques, Referring Physician, on 01/07/2018 17:34:03 (ET). Chest X-Ray 01/07/18 19:48 IMPRESSION: A new left subclavian line terminates in the mid SVC. No other changes. Electronically Signed: Erik Mcclelland MD at 20:24 EST , Service support , Chest X-Ray 01/08/18 05:55 IMPRESSION: Redemonstration of a left upper lobe infiltrate or mass, not significant changed from yesterday's exams. Suggestion of COPD. Central line is in stable position. Electronically Signed: Flaquito Mcfarlane MD at 5:31 EST , Service support , Assessment/Plan Active and Suspected Problems PNA (pneumonia) (Acute) Septic shock (Acute) Hypoxia (Acute) Nicotine abuse (Acute) History of TIA (transient ischemic attack) (Acute) RECOMMENDATIONS: 1. Start D5 half-normal saline with potassium supplementation due to labile blood pressures and poor p.o. intake. 2. Aggressive electrolyte repletion. Check magnesium and phosphorus levels. 3. Cosyntropin stimulation test 4. Continue antibiotics, pending finalized culture results. 5. Continue duo nebs and Pulmicort 6. Encourage p.o. intake 7. Continue subcutaneous heparin for DVT prophylaxis 8. Encourage incentive spirometer use and mobilize patient as tolerated. 9. Recommend percutaneous CT-guided lung biopsy, potentially tomorrow, if the patient is agreeable. IMPRESSIONS: 1. Septic shock There was initial concern that the patient's left upper lobe lung lesion could represent an infection versus malignancy. She did present to the emergency department in a hypotensive state. Although this may be related to an underlying pulmonary infectious process, it could also be the consequence of general intravascular volume depletion from poor p.o. intake, coupled with polypharmacy for hypertension. The patient has responded to IV fluid resuscitation. However, her blood pressures remain exceedingly labile. Her p.o. intake remains poor. Therefore, supplemental IV fluids will be initiated today. In addition, a cosyntropin stimulation test will be completed. Continue to hold home antihypertensives. Encourage p.o. intake. 2. Left upper lobe lung mass Given the patient's smoking history, this is certainly concerning for an underlying malignancy. Recommend direct tissue biopsy. I did personally review the patient's CT imaging from the outside hospital. Given the time delays associated with scheduling the patient for an EBUS, would recommend proceeding with percutaneous CT-guided lung biopsy. The patient is at high risk for pneumothorax, given the extensive emphysematous changes noted in her upper lobes bilaterally. This case will need to be discussed with radiology tomorrow morning. 3. Continuous tobacco dependence The patient has an extensive smoking history of 50+ pack years. Smoking cessation is advised. 4. Presumptive COPD Although the patient has been told that she has COPD previously, she has never undergone formal pulmonary function testing. Recommend close outpatient follow- up so that baseline PFTs can be obtained. For now, agree with continuing duo nebs and budesonide. 5. Hypokalemia Electrolyte repletion as indicated. Check magnesium level. 6. Personal history of hypertension Hold antihypertensive medications for now. This note was generated with [employer] dictation software. It may contain incorrect words, spelling, and punctuation that were not noted in checking the note before signing. Code Visit Inpatient E&M: 39945 Subs Hosp L3
[2018-01-09] MEDS: Budesonide Respules 0.5 MG/2 ML AMPUL.NEB. INHALATION ×2 (07:18→19:26)
[2018-01-09 07:53] LABS: Magnesium 1.2 mg/dL (1.6-2.6); Phosphorus 3.1 mg/dL (2.5-4.9)
[2018-01-09] MEDS: Potassium Chloride 40 MEQ in Dext 5%-0.45% NS 1,000 ML 125 MEQ IV ×2 (08:30→17:53)
[2018-01-09] MEDS: Cosyntropin 0.25 MG Vial IV (08:45)
[2018-01-09] MEDS: Clopidogrel Bisulfate 75 MG Tablet PO (09:58)
[2018-01-09] MEDS: 0.9% NaCl Peripheral Flush Adult/Peds IV (09:58)
--- NOTE | 2018-01-09 12:02 | PCM.PROGNOTE ---
Patient Problems: Active and Suspected Problems PNA (pneumonia) (Acute) Septic shock (Acute) Hypoxia (Acute) Nicotine abuse (Acute) History of TIA (transient ischemic attack) (Acute) Subjective: Pt resting comfortably in bed. No dizziness/lightheadedness. She denies SOB today. She has a nonproductive cough. No fevers or chills overnight. She is tolerating PO intake. BP remains poor and she continues to be tachy. No sensation of palpitations. - Physical Exam General: Alert, Oriented x3, Cooperative, - - cahcectic HEENT: Atraumatic, PERRLA, EOMI, Normocephalic Neck: Supple, No JVD, Negative Carotid Bruits Lungs: Clear to auscultation, Diminished Cardiovascular: No murmurs, Tachycardic Abdomen: Bowel Sounds Present, Soft, Non Tender Extremities: No edema, Capillary Refill Less than 3 Seconds Skin: No rashes, No breakdown Musculoskeletal: No Tenderness to Palpation of Joints or Extremities Neurological: Cranial nerves II-XII grossly intact Psych/Mental Status: Normal Affect, Appropriate, Alert and oriented to time, place, person, mood and affect Vital Signs Temp Pulse Resp BP Pulse Ox 98.1 F 115 H 25 H 63/50 L 91 01/09/18 09:00 01/09/18 11:39 01/09/18 11:00 01/09/18 11:39 01/09/18 11:00 Oxygen Flow Rate (L/min) 1 Oxygen Delivery Method Room Air Weight: 43.5 kg Body Mass Index (BMI) 18.1 Orthostatic Vital Signs Start: 01/08/18 12:08 Freq: q24h Status: Active Protocol: Activity Type Activity Date Activity User E-Sign Co-Sign Detail Recorded Client Recorded Date Recorded By Document 01/08/18 12:08 [facility] [id number] 01/08/18 12:19 [facility] 01/08/18 12:08 Orthostatic Vitals Standing -Blood Pressure (90/60-120/80) 98/67 -Extremity Use Left Arm -Pulse Rate (60-100) 93 Sitting -Blood Pressure (90/60-120/80) 97/68 -Extremity Use Left Arm -Pulse Rate (60-100) 94 Lying -Blood Pressure (90/60-120/80) 93/60 -Extremity Use Left Arm -Pulse Rate (60-100) 92 Intake and Output for Last 24 Hours 01/07/18 01/08/18 01/10/18 23:59 23:59 00:59 Intake Total 1264 / 1264 3820.5 / 3820.5 1071.3 / 1071.3 Output Total 450 / 450 2150 / 2150 1100 / 1100 Balance 814 / 814 1670.5 / 1670.5 -28.7 / -28.7 Microbiology Past 72 Hours 01/08/18 10:20 Gram Stain - Final Sputum, Expectorated/Coughed Respiratory Culture - Preliminary Culture exhibits no growth. 01/07/18 20:45 Urine Culture - Preliminary Urine Catheter - Mello Culture exhibits no growth. 01/08/18 07:30 Respiratory Panel (PCR) - Final Mucosa - Nose 01/07/18 20:45 Streptococcus pneumoniae Antigen (M - Final Urine Catheter - Mello 01/07/18 20:45 Legionella Antigen - Final Urine Catheter - Mello Laboratory Tests Past 24 Hrs 01/09/18 01/09/18 01/09/18 04:20 04:20 04:20 WBC 10.4 RBC 3.30 L Hgb 10.1 L Hct 31.1 L MCV 94.2 MCH 30.6 MCHC 32.5 RDW 12.4 RDW Differential 41.4 Plt Count 456 H MPV 8.6 Immature Gran % (Auto) 0.200 Neut % (Auto) 75.1 H Lymph % (Auto) 12.0 L Moody % (Auto) 12.3 H Eos % (Auto) 0.3 Baso % (Auto) 0.1 Absolute Neuts (auto) 7.8 H Absolute Lymphs (auto) 1.25 Total Counted Not Reportable Sodium 136 Potassium 3.1 L Chloride 98 Carbon Dioxide 29.0 Anion Gap 9 BUN 9 Creatinine 0.67 Estim Creat Clear Calc 36.13 Est GFR (MDRD) Af Amer 112 Est GFR (MDRD) Non-Af 93 BUN/Creatinine Ratio 13.5 Glucose 81 Calcium 8.2 L Phosphorus Magnesium Troponin I < 0.02 Cortisol 01/09/18 01/09/18 01/09/18 04:20 08:45 09:20 WBC RBC Hgb Hct MCV MCH MCHC RDW RDW Differential Plt Count MPV Immature Gran % (Auto) Neut % (Auto) Lymph % (Auto) Moody % (Auto) Eos % (Auto) Baso % (Auto) Absolute Neuts (auto) Absolute Lymphs (auto) Total Counted Sodium Potassium Chloride Carbon Dioxide Anion Gap BUN Creatinine Estim Creat Clear Calc Est GFR (MDRD) Af Amer Est GFR (MDRD) Non-Af BUN/Creatinine Ratio Glucose Calcium Phosphorus 3.1 Magnesium 1.2 L Troponin I Cortisol Pending Pending 01/09/18 09:50 WBC RBC Hgb Hct MCV MCH MCHC RDW RDW Differential Plt Count MPV Immature Gran % (Auto) Neut % (Auto) Lymph % (Auto) Moody % (Auto) Eos % (Auto) Baso % (Auto) Absolute Neuts (auto) Absolute Lymphs (auto) Total Counted Sodium Potassium Chloride Carbon Dioxide Anion Gap BUN Creatinine Estim Creat Clear Calc Est GFR (MDRD) Af Amer Est GFR (MDRD) Non-Af BUN/Creatinine Ratio Glucose Calcium Phosphorus Magnesium Troponin I Cortisol Pending Assessment/Plan Active and Suspected Problems PNA (pneumonia) (Acute) Septic shock (Acute) Hypoxia (Acute) Nicotine abuse (Acute) History of TIA (transient ischemic attack) (Acute) 1. Acute septic shock 2/2 MAX pna - community acquired or possibly postobstructive PNA - Zosyn. She remains hypotensive off pressors and remains in the ICU, she is on KCl. Continues to be tachy. She has few complaints subjectively and appears nontoxic, although frail. She has no SOB and remains off O2. WBC is improving and no further fever. Cultures NTD. Cosyntropin stim test pending. Resp panel negative. Resp cx with no growth. Blood cx pending. Urine ag neg. 2. MAX mass - pulm consulted. highly suspicious for lung ca with current imaging and her hx of smoking, CT findings of spiculated lung mass, lymphadenopathy, and recent weight loss. 3. Underlying COPD with acute exacerbation - failed outpatient aerosols and prednisone. On pulmicort, duonebs. 4. Hx TIA - on Plavix, statin 5. HTN - hold antihypertensives 2/2 #1. 6. Severe malnutrition - recent 20 lb weight loss. [employer] eval for supplementation. 7. Carotid stenosis - prior endarterectomy left side x2 and right x1 - loud bruit on exam. 8. Hypokalemia / Hypomagnesemia - replete both. Phos normal. 9. Normocytic anemia - stable. DVT ppx: SCDs, heparin This patient was seen by Vinicius Saini PA-C under the supervision of Dr. Garcia
[2018-01-09] MEDS: 0.9% Normal Saline 1,000 ML 999 ML IV (12:03)
--- NOTE | 2018-01-09 19:19 | EKG12_ITS ---
Test Reason : RHYTHM CHANGE Blood Pressure : / mmHG Vent. Rate : 091 BPM Atrial Rate : 091 BPM P-R Int : 122 ms QRS Dur : 078 ms QT Int : 358 ms P-R-T Axes : 022 020 062 degrees QTc Int : 440 ms Normal sinus rhythm Normal ECG When compared with ECG of 07-JAN-2018 16:12, No significant change was found Confirmed by RACHEL HARMAN, HENRRY ([id number]), supervising film or videotape editor GONZÁLEZ MCGRATH ([id number]) on 01/14/2018 2:02:33 PM Referred By: Estela Ferguson Confirmed By:HENRRY RAMOS MD
[2018-01-09] MEDS: Atorvastatin Calcium 40 MG Tablet PO (21:35)
[2018-01-10] VITALS (26 sets, daily range): BP systolic 68–137; BP diastolic 45–86; PULSE 85–114; RESP 20–31; TEMP 36.7–37.1; O2SAT 94–97
--- NOTE | 2018-01-10 | LUNG_PTH ---
PATIENT: MEHRAN MEAD LOC: [facility] U#:[id number] AGE/SX: 67/F ROOM: [facility] RE01/07/[address]: Dr. Kiko Zamorano MD : 1950 BED: 1 DIS: 01/12/2018 SPEC #: [id number] RECD: 01/10/18 12:42 STATUS: TEODORA REQ #: [id number] SHAILESH: 01/10/18 00:[address]: Dc Blackwood DEPT: SURGICAL PATHOLOGY RECD BY: Thaddeus Naranjo ENTERED: 01/10/18 12:44 SP TYPE: LUNG BX OTHR DR: MD Dr. Manny Smith DO Dr. Prakash Chand, MD Melissa Palmer, PA Tissues: Lung, NOS Procedures: FNA Specimen Adequacy Special Stain Group I Surgery Specimen Level IV Diff Quik Stain (control) Comments: @ Ordering doctor for SSI edited from to [email or web address] Nieves by LISA at 01/10/18 1533 @ Ordering doctor for SUIV edited from to [email or web address] Nieves by LISA at 01/10/18 153 @ Ordering doctor for DQ edited from to [email or web address] Nieves by LISA at 01/10/18 1533 @ Ordering doctor for FNASA edited from to [email or web address] Nieves by LISA at 01/10/18 1533 @ Submitting doctor edited from to [email or web address] Nieves by LISA at 01/10/18 1533 HEADER OPERATION: CT-guided left lung biopsy PRE-OP DIAGNOSIS: MAX mass TISSUE SUBMITTED: 20g core left lung MICROSCOPIC DIAGNOSIS MAX mass, CT-guided core biopsy: Non-small cell carcinoma, favor adenocarcinoma, consistent with lung primary.. See comment. SJ:rg 01/11/18 COMMENT The specimen is evaluated at the time of core biopsy by Dr. Parrish. Immediate Evaluation = Malignant cells present, non-small cell carcinoma. Immunohistochemistry ([id number]) supports the above diagnosis. Molecular studies on the tumor will be performed and the results will be reported in an addendum. Case has been reviewed in consultation with Dr. Valencia who concurs with the above diagnosis. IDC:AM MICROSCOPIC DESCRIPTION Slides are reviewed. GROSS DESCRIPTION Received in fixative is one container labeled with the patient's name and designated left lung. The specimen consists of multiple irregular fragments of zaman soft tissue that in aggregate measure 1 x 0.1 x <0.1 cm. The specimen is totally submitted in one cassette. Two touch imprints are prepared at the time of core biopsy. / SJ:rg 01/10/18 TC:0 CPT: 39619, 11822 ADDENDUM ADDENDUM ADDENDUM ADDENDUM ADDENDUM ADDENDUM ADDENDUM ADDENDUM ADDENDUM ADDENDUM ADDENDUM ADDENDUM ADDENDUM ADDENDUM 01/20/2018 14:55 ADDENDUM 01/25/2018 10:02 ADDENDUM 01/20/2018 14:55 ADDENDUM 01/20/2018 14:55 ADDENDUM 01/20/2018 14:55 ADDENDUM 01/20/2018 14:55 [facility] NGS EGFR AND KRAS SEQUENCING REPORT FROM [facility] RESULT SUMMARY: Normal INTERPRETATION SUMMARY: This was a NORMAL sequencing study in which no disease associated mutations or variants of unclear significance were identified in the tested specimen within: EGFR (exons 7, 15, 18, 19, 20, 21) inclusive of T790 KRAS (exons 2, 3, 4) Clinical and pathologic correlation is required to interpret these findings. ?Please see complete report in EMR FLUORESCENCE IN SITU HYBRIDIZATION (FISH) REPORT FROM [facility] INTERPRETATION: 1. No evidence of ALK gene rearrangement or deletion. 2. Negative for ROS1 gene rearrangement. RESULTS: 2p23/ALK rearrangement Normal nuclei 100% XT ROS1 Normal nuclei 100% Please see complete report in e-chart or EMR for further details
--- NOTE | 2018-01-10 | IMM_PTH ---
PATIENT: MEHRAN MEAD LOC: [facility] U#:[id number] AGE/SX: 67/F ROOM: [facility] RE01/07/[address]: Dr. Kiko Zamorano MD : 1950 BED: 1 DIS: 01/12/2018 SPEC #: [id number] RECD: 01/11/18 11:28 STATUS: TEODORA REQ #: [id number] SHAILESH: 01/10/18 00:[address]: Dc Blackwood DEPT: IMMUNOHISTOCHEMISTRY RECD BY: Luci Mcclain ENTERED: 01/11/18 11:32 SP TYPE: IMMUNO OTHR DR: MD Dr. Manny Smith DO Dr. Prakash Chand, MD Melissa Palmer, PA Tissues: Lung, NOS Procedures: RCC (add) NAPSIN A (add) CK20 (add) CK5-6 (add) CK7 (add) CK8 (add) HEP PAR (add) KY (add) TTF1 (add) P40 (add) ER (initial) PHYSICIAN & [place] [id number] SPECIMEN INFORMATION: Tissue Source: Left lung Clinical Info: MAX mass Specimen Number: [id number] CPT code: 70386, 18428 x10 METHODOLOGY: Deparaffinized sections of prefer/formalin-fixed tissue or PAP/DQ stained slides are incubated with monoclonal/polyclonal antibodies/oligonucleotide probes. Localization is made via biotin free immunoperoxidase method. Appropriate controls are performed and reacted as expected. Results on target cell population are indicated in the following table: RESULTS: ANTIBODY / CLONE RESULT ER (6F11) negative KY (1E2) negative CK7 (OV-TL12/30) positive CK8 (35fbjlC11) positive CK20 (KS20.8) negative TTF-1 (8G7G3/1) positive Napsin A (Rabbit Polyclonal) positive HepPar (OCh1E5) negative RCC (PN-15) negative CK5-6 (D5 & 1684) negative P40 (BC28) negative These tests were developed and their performance characteristics determined by [facility]. They may not have been cleared or approved by the U.[place]. Food and Drug Administration. The FDA has determined that such clearance or approval is not necessary. INTERPRETATION: Left lung, CT-guided biopsy: Non-small cell carcinoma, favor adenocarcinoma, consistent with lung primary. FAB:alon 01/12/18
[2018-01-10] MEDS: Potassium Chloride 40 MEQ in Dext 5%-0.45% NS 1,000 ML 125 MEQ IV (02:25)
[2018-01-10 05:18] LABS: Absolute Neutrophil Count 7.3 X10^3/uL (2.0-7.7); Basophil# 0.01 X10^3/uL; Basophil% 0.1 % (0-1); Eosinophil# 0.22 X10^3/uL; Eosinophils% 2.3 % (0-5); Hematocrit 30.5 % (37-47); Hemoglobin 9.8 g/dl (12.0-15.0); Lymphocyte % 10.6 % (19-41); Mean Corp Hgb Conc 32.1 g/gl (32-36); Mean Corpuscular Hgb 30.2 pg (27.0-32.0); Mean Corpuscular Volume 94.1 fL (81-99); Monocyte# 0.89 X10^3/uL; Monocyte% 9.4 % (0-10); Neutrophil # 7.31 X10^3/uL (2.7-7.7); Neutrophil % 77.3 % (47-70); Platelet Count 453 K/mm3 (150-450); RBC Distribution Width CV 12.4 % (11.6-14.6); RBC Distribution Width SD 41.2 fl (35.1-43.9); Red Blood Count 3.24 M/mm3 (4.2-5.4); White Blood Count 9.5 K/mm3 (4.4-11.0)
[2018-01-10 05:27] LABS: POSITIVE COUNT NO; POSITIVE DIFFERENTIAL NO; POSITIVE MORPHOLOGY NO
[2018-01-10 05:33] LABS: Anion Gap 7 (5-15); BUN 5 mg/dL (7-18); BUN/Creat Ratio 8.2 RATIO (10-20); Calcium,Total 8.3 mg/dL (8.5-10.1); Chloride 100 mmol/L (98-107); Creatinine, Serum 0.61 mg/dL (0.55-1.02); EST Glomerular Filtration Rate 104 mL/min (>60); Est Glom Filt Rate - Afr Amer 126 mL/min (>60); Estimated Creatinine Clearance 36.96 ml/min; Glucose 120 mg/dL (74-106); Magnesium 1.6 mg/dL (1.6-2.6); Potassium 4.2 mmol/L (3.5-5.1); Sodium Level 136 mmol/L (136-145)
[2018-01-10] MEDS: 0.9% NaCl Peripheral Flush Adult/Peds IV ×2 (06:13→20:46)
[2018-01-10] MEDS: Piperacil/Tazobactam 3.375 GM/50 ML ML IV (06:13)
--- NOTE | 2018-01-10 06:22 | PCM.PN.INT ---
Subjective: The patient was seen and examined at the bedside this morning. Events from the last 24 hours have been reviewed. The patient is currently afebrile, hemodynamically stable and maintaining appropriate oxygen saturations on room air. The patient's blood pressures have improved over the last day. She remains on supplemental IV fluid hydration. The patient voiced being nervous about going through a lung biopsy procedure. Objective: The patient's most recent lab work, culture data and imaging studies have all been personally reviewed. Strep and urine Legionella antigens were both negative. Respiratory viral panel was negative. Blood and urine cultures have shown no growth to date. Expectorated sputum culture revealed 3+ white blood cells without organisms. On January 06, the patient underwent a contrasted chest CT at [facility], which per report revealed evidence of a spiculated left upper lobe mass measuring 3.9 x 4.1 cm. Patient also had radiographic evidence of bilateral upper lobe predominant emphysematous changes along with a density in the lingula and left lower lobe. The patient had an enlarged left hilar and right paratracheal lymph node. There is also incidental note of a soft tissue density measuring 1.7 x 2.3 cm in the subcutaneous tissue of the posterior chest at the level of the ninth rib. CT chest in our system dated April 2014 which did demonstrate a subcutaneous mass in the right side of the back that measured 1 x 2.4 cm. There was also note of an 8 mm groundglass density noted in the left upper lobe at that time. General: Alert, Oriented x3, Cooperative, No apparent distress HEENT: Atraumatic, PERRLA, Normocephalic Oral: Moist Mucosa, No Gingival or Mucosal Lesions/ Ulcerations Neck: Supple, No Nodes, Trachea Midline Lungs: No rhonchi, No wheeze, No rales, Diminished Cardiovascular: Normal S1, Normal S2, No murmurs, No rub noted, No Gallop, Tachycardic Abdomen: Bowel Sounds Present, Soft, Non Tender Extremities: No clubbing, No cyanosis, No edema Skin: No rashes, No breakdown Musculoskeletal: No Tenderness to Palpation of Joints or Extremities Lymphatic: No Cervical, Supraclavicular, or Inguinal Adenopathy Neurological: Neuro grossly intact Psych/Mental Status: Alert and oriented to time, place, person, mood and affect Vital Signs Temp Pulse Resp BP Pulse Ox 98.3 F 88 22 H 117/83 H 96 01/10/18 05:00 01/10/18 05:00 01/10/18 05:00 01/10/18 05:00 01/10/18 05:00 Oxygen Flow Rate (L/min) 2 Oxygen Delivery Method Room Air Weight: 97 lb 3.582 oz Body Mass Index (BMI) 18.1 Orthostatic Vital Signs Start: 01/08/18 12:08 Freq: q24h Status: Active Protocol: Activity Type Activity Date Activity User E-Sign Co-Sign Detail Recorded Client Recorded Date Recorded By Document 01/08/18 12:08 [facility] [id number] 01/08/18 12:19 FRED 01/08/18 12:08 Orthostatic Vitals Standing -Blood Pressure (90/60-120/80) 98/67 -Extremity Use Left Arm -Pulse Rate (60-100) 93 Sitting -Blood Pressure (90/60-120/80) 97/68 -Extremity Use Left Arm -Pulse Rate (60-100) 94 Lying -Blood Pressure (90/60-120/80) 93/60 -Extremity Use Left Arm -Pulse Rate (60-100) 92 Intake and Output for Last 24 Hours 01/08/18 01/09/18 01/10/18 22:59 23:59 23:59 Intake Total 700 / 700 Output Total 1500 / 1500 Balance -800 / -800 Labs (Last 48 Hours) 01/08/18 01/08/18 01/08/18 05:45 05:45 05:45 WBC 12.8 H RBC 3.03 L Hgb 9.4 L Hct 29.0 L MCV 95.7 MCH 31.0 MCHC 32.4 RDW 12.2 RDW Differential 41.3 Plt Count 405 MPV 8.9 Immature Gran % (Auto) Neut % (Auto) Lymph % (Auto) [place] % (Auto) Eos % (Auto) Baso % (Auto) Absolute Neuts (auto) Absolute Lymphs (auto) Total Counted PT 14.0 INR 1.1 APTT 33.0 Sodium 140 Potassium 3.3 L Chloride 105 Carbon Dioxide 28.0 Anion Gap 7 BUN 11 Creatinine 0.58 Estim Creat Clear Calc 36.13 Est GFR (MDRD) Af Amer 132 Est GFR (MDRD) Non-Af 109 BUN/Creatinine Ratio 18.9 Glucose 86 Calcium 7.8 L Phosphorus Magnesium Troponin I Cortisol 01/09/18 01/09/18 01/09/18 04:20 04:20 04:20 WBC 10.4 RBC 3.30 L Hgb 10.1 L Hct 31.1 L MCV 94.2 MCH 30.6 MCHC 32.5 RDW 12.4 RDW Differential 41.4 Plt Count 456 H MPV 8.6 Immature Gran % (Auto) 0.200 Neut % (Auto) 75.1 H Lymph % (Auto) 12.0 L [place] % (Auto) 12.3 H Eos % (Auto) 0.3 Baso % (Auto) 0.1 Absolute Neuts (auto) 7.8 H Absolute Lymphs (auto) 1.25 Total Counted Not Reportable PT INR APTT Sodium 136 Potassium 3.1 L Chloride 98 Carbon Dioxide 29.0 Anion Gap 9 BUN 9 Creatinine 0.67 Estim Creat Clear Calc 36.13 Est GFR (MDRD) Af Amer 112 Est GFR (MDRD) Non-Af 93 BUN/Creatinine Ratio 13.5 Glucose 81 Calcium 8.2 L Phosphorus Magnesium Troponin I < 0.02 Cortisol 01/09/18 01/09/18 01/09/18 04:20 08:45 09:20 WBC RBC Hgb Hct MCV MCH MCHC RDW RDW Differential Plt Count MPV Immature Gran % (Auto) Neut % (Auto) Lymph % (Auto) [place] % (Auto) Eos % (Auto) Baso % (Auto) Absolute Neuts (auto) Absolute Lymphs (auto) Total Counted PT INR APTT Sodium Potassium Chloride Carbon Dioxide Anion Gap BUN Creatinine Estim Creat Clear Calc Est GFR (MDRD) Af Amer Est GFR (MDRD) Non-Af BUN/Creatinine Ratio Glucose Calcium Phosphorus 3.1 Magnesium 1.2 L Troponin I Cortisol Pending Pending 01/09/18 01/10/18 01/10/18 09:50 04:50 04:50 WBC 9.5 RBC 3.24 L Hgb 9.8 L Hct 30.5 L MCV 94.1 MCH 30.2 MCHC 32.1 RDW 12.4 RDW Differential 41.2 Plt Count 453 H MPV 9.0 Immature Gran % (Auto) 0.300 Neut % (Auto) 77.3 H Lymph % (Auto) 10.6 L [place] % (Auto) 9.4 Eos % (Auto) 2.3 Baso % (Auto) 0.1 Absolute Neuts (auto) 7.3 Absolute Lymphs (auto) 1.00 Total Counted Not Reportable PT INR APTT Sodium 136 Potassium 4.2 Chloride 100 Carbon Dioxide 29.0 Anion Gap 7 BUN 5 L Creatinine 0.61 Estim Creat Clear Calc 36.96 Est GFR (MDRD) Af Amer 126 Est GFR (MDRD) Non-Af 104 BUN/Creatinine Ratio 8.2 L Glucose 120 H Calcium 8.3 L Phosphorus Magnesium 1.6 Troponin I Cortisol Pending Microbiology 01/09/18 18:15 Stool C. difficile DNA Amplification - Final 01/08/18 10:20 Sputum, Expectorated/Coughed Gram Stain - Final 01/08/18 10:20 Sputum, Expectorated/Coughed Respiratory Culture - Preliminary Culture exhibits no growth. 01/07/18 20:45 Urine Catheter - Mello Urine Culture - Preliminary Culture exhibits no growth. 01/08/18 07:30 Mucosa - Nose Respiratory Panel (PCR) - Final Clinical Impression(s) from Imaging Studies Chest X-Ray 01/07/18 17:10 IMPRESSION: There is a new left upper lobe masslike density which may represent infection in an area of prior emphysematous change however lung cancer should be excluded. Recommend CT scan of the chest. Pulmonary emphysema chronic obstructive pulmonary disease. N.B. : The above information has been verbally conveyed by Razia Zuniga MD to Dr Jacques, Referring Physician, on 01/07/2018 17:34:03 (ET). Electronically Signed: Razia Zuniga MD at 17:30 EST Tel , Service support , N.B. : The above information has been verbally conveyed by Razia Zuniga MD to Dr Jacques, Referring Physician, on 01/07/2018 17:34:03 (ET). Chest X-Ray 01/07/18 19:48 IMPRESSION: A new left subclavian line terminates in the mid SVC. No other changes. Electronically Signed: Erik Mcclelland MD at 20:24 EST , Service support , Chest X-Ray 01/08/18 05:55 IMPRESSION: Redemonstration of a left upper lobe infiltrate or mass, not significant changed from yesterday's exams. Suggestion of COPD. Central line is in stable position. Electronically Signed: Flaquito Mcfarlane MD at 5:31 EST , Service support , Chest X-Ray 01/09/18 04:37 IMPRESSION: Redemonstration of a rounded infiltrate or mass in the left upper lung field, not significant changed over the last few days. Consider CT scan chest for further evaluation. Suggestion of COPD. Central venous catheter. Electronically Signed: Flaquito Mcfarlane MD at 6:22 EDT , Service support , Assessment/Plan Active and Suspected Problems PNA (pneumonia) (Acute) Septic shock (Acute) Hypoxia (Acute) Nicotine abuse (Acute) History of TIA (transient ischemic attack) (Acute) RECOMMENDATIONS: 1. Continue D5 half-normal saline maintenance fluid supplementation 2. Additional magnesium repletion 3. Discontinue Zosyn and transition to p.o. Levaquin to complete a total 7 day treatment course of antibiotics. 4. Continue duo nebs and Pulmicort 5. Encourage p.o. intake 6. Continue subcutaneous heparin for DVT prophylaxis 7. Encourage incentive spirometer use and mobilize patient as tolerated. 8. Make patient n.p.o. for now. Will discuss CT scan with radiology in hopes of completing percutaneous lung biopsy today. IMPRESSIONS: 1. Septic shock There was initial concern that the patient's left upper lobe lung lesion could represent an infection versus malignancy. She did present to the emergency department in a hypotensive state. Although this may be related to an underlying pulmonary infectious process, it could also be the consequence of general intravascular volume depletion from poor p.o. intake, coupled with polypharmacy for hypertension. The patient has responded to IV fluid resuscitation. We will plan to continue supplemental IV fluid hydration for now. Continue to hold home antihypertensive regimen. Encourage p.o. intake. Transition from IV Zosyn to p.o. Levaquin to complete a 7 day treatment course for presumptive pneumonia. 2. Left upper lobe lung mass Given the patient's smoking history, this is certainly concerning for an underlying malignancy. Recommend direct tissue biopsy. I did personally review the patient's CT imaging from the outside hospital. Given the time delays associated with scheduling the patient for an EBUS, would recommend proceeding with percutaneous CT-guided lung biopsy. The patient is at high risk for pneumothorax, given the extensive emphysematous changes noted in her upper lobes bilaterally. This case will need to be discussed with radiology this morning.. 3. Continuous tobacco dependence The patient has an extensive smoking history of 50+ pack years. Smoking cessation is advised. 4. Presumptive COPD Although the patient has been told that she has COPD previously, she has never undergone formal pulmonary function testing. Recommend close outpatient follow-up so that baseline PFTs can be obtained. For now, agree with continuing duo nebs and budesonide. 5. Hypomagnesemia Electrolyte repletion as indicated. Recheck level in the morning. 6. Personal history of hypertension Hold antihypertensive medications for now. This note was generated with Upplication dictation software. It may contain incorrect words, spelling, and punctuation that were not noted in checking the note before signing. Code Visit Inpatient E&M: 98369 Subs Hosp L2
[2018-01-10] MEDS: Ipratropium/Albuterol Sulfate 3 ML AMPUL.NEB INHALATION (06:42)
[2018-01-10] MEDS: Budesonide Respules 0.5 MG/2 ML AMPUL.NEB. INHALATION (06:42)
--- NOTE | 2018-01-10 06:43 | CT_ITS ---
PROCEDURE: CT GUIDED CORE NEEDLE BIOPSY OF A left upper lobe LUNG LESION INDICATION: Female, 67 years old. Left upper lobe mass. PHYSICIAN: Dr.Pedicelli HARMAN CONSENT: Written informed consent was obtained having explained the risks, benefits and alternatives in detail with the patient who accepted the risks and agreed to proceed. Laboratory review and clinical assessment was performed. CONSCIOUS SEDATION PROTOCOL: The Drugs used were: 1 mg Versed, IV., and 25 Fentanyl, IV. The sedation time was: Conscious sedation was started 11:23 AM and terminate at 11:40 AM. The conscious sedation protocol was independently monitored. RADIATION DOSAGE (If Supplied By Facility): CTDIvol = ( 11 ) mGy, DLP = ( 158.83 ) mGycm Individualized dose optimization techniques were used for this CT. TECHNIQUE: The patient was placed in the supine position. A noncontrast CT was performed to localize the lesion in the left upper lobe . The skin surface was prepped and draped in a sterile fashion. 1% lidocaine was used for local anesthesia. Using CT guidance, a 20 coaxial biopsy device was advanced to the periphery of the lesion. A total of 3 core specimens were obtained. The specimens were placed in a formalin solution. A post procedure CT demonstrated no adverse sequelae or pneumothorax. The patient tolerated the procedure well without adverse event. A negative biopsy does not exclude malignancy. Further imaging or clinical followup based on patient condition and degree of clinical suspicion for malignancy. Suggest rebiopsy, if biopsy results do not match with clinical scenario. CT/Biopsy/Inj or Needle Placement IMPRESSION: 1. CT directed core needle biopsy of the left upper lobe mass using CT image guidance with image documentation as described. Pathology results are pending. 2. Conscious Sedation protocol utilized with independent monitoring. Electronically Signed: Golden Powell MD at 12:38 EDT Tel [phone], Service support ,
[2018-01-10] MEDS: 0.9% NaCl IVPB Med Flush (250 mL) 15 ML IV (07:00)
[2018-01-10] MEDS: Dext 5%-0.45% NS 1,000 ML 125 ML IV ×2 (07:05→20:46)
--- NOTE | 2018-01-10 09:18 | PCM.PN.HOSP ---
Patient Problems: Active and Suspected Problems PNA (pneumonia) (Acute) Septic shock (Acute) Hypoxia (Acute) Nicotine abuse (Acute) History of TIA (transient ischemic attack) (Acute) Subjective: Seen and examined. The patient is afebrile, vital signs stable. Pulse ox 95% on room air. Supposed to have left upper lobe mass CT-guided needle biopsy Vitals/I&O's: Vital Signs Temp Pulse Resp BP Pulse Ox 98.1 F 107 H 23 H 117/85 H 95 01/10/18 06:00 01/10/18 06:42 01/10/18 06:42 01/10/18 06:00 01/10/18 06:42 Oxygen Flow Rate (L/min) 2 Oxygen Delivery Method Room Air Weight: 97 lb 3.582 oz Body Mass Index (BMI) 18.1 Orthostatic Vital Signs Start: 01/08/18 12:08 Freq: q24h Status: Active Protocol: Activity Type Activity Date Activity User E-Sign Co-Sign Detail Recorded Client Recorded Date Recorded By Document 01/08/18 12:08 [facility] [id number] 01/08/18 12:19 [facility] 01/08/18 12:08 Orthostatic Vitals Standing -Blood Pressure (90/60-120/80) 98/67 -Extremity Use Left Arm -Pulse Rate (60-100) 93 Sitting -Blood Pressure (90/60-120/80) 97/68 -Extremity Use Left Arm -Pulse Rate (60-100) 94 Lying -Blood Pressure (90/60-120/80) 93/60 -Extremity Use Left Arm -Pulse Rate (60-100) 92 Intake and Output for Last 24 Hours 01/08/18 01/09/18 01/10/18 22:59 23:59 23:59 Intake Total 700 / 700 Output Total 1500 / 1500 Balance -800 / -800 General: Alert, Oriented x3, Cooperative HEENT: Atraumatic, PERRLA, EOMI, Normocephalic Neck: Supple, No JVD, Negative Carotid Bruits Lungs: Diminished, Rhonchi - Expiratory rhonchi, Tachypneic Cardiovascular: Regular rate, Regular Rhythm, Normal S1, Normal S2, No murmurs Abdomen: Bowel Sounds Present, Soft, Non Tender, Non-Distended Extremities: No edema, Capillary Refill Less than 3 Seconds Skin: No rashes, No breakdown Musculoskeletal: No Tenderness to Palpation of Joints or Extremities, Arthritic Changes, Muscle Wasting Neurological: Cranial nerves II-XII grossly intact, Neuro grossly intact Psych/Mental Status: Normal Affect, Appropriate Microbiology Past 72 Hours 01/08/18 10:20 Sputum, Expectorated/Coughed Gram Stain - Final 01/08/18 10:20 Sputum, Expectorated/Coughed Respiratory Culture - Preliminary Appears to be normal respiratory javier. Further studies to follow. 01/07/18 20:45 Urine Catheter - Mello Urine Culture - Final Culture exhibits no growth. 01/09/18 18:15 Stool C. difficile DNA Amplification - Final 01/08/18 07:30 Mucosa - Nose Respiratory Panel (PCR) - Final 01/07/18 20:45 Urine Catheter - Mello Streptococcus pneumoniae Antigen (M - Final 01/07/18 20:45 Urine Catheter - Mello Legionella Antigen - Final Laboratory Results 01/09/18 09:20: Cortisol Pending 01/09/18 09:50: Cortisol Pending 01/10/18 04:50: WBC 9.5, RBC 3.24 L, Hgb 9.8 L, Hct 30.5 L, MCV 94.1, MCH 30.2, MCHC 32.1, RDW 12.4, RDW Differential 41.2, Plt Count 453 H, MPV 9.0, Immature Gran % (Auto) 0.300, Neut % (Auto) 77.3 H, Lymph % (Auto) 10.6 L, [place] % (Auto) 9.4, Eos % (Auto) 2.3, Baso % (Auto) 0.1, Absolute Neuts (auto) 7.3, Absolute Lymphs (auto) 1.00, Total Counted Not Reportable 01/10/18 04:50: Sodium 136, Potassium 4.2, Chloride 100, Carbon Dioxide 29.0, Anion Gap 7, BUN 5 L, Creatinine 0.61, Estim Creat Clear Calc 36.96, Est GFR (MDRD) Af Amer 126, Est GFR (MDRD) Non-Af 104, BUN/Creatinine Ratio 8.2 L, Glucose 120 H, Calcium 8.3 L, Magnesium 1.6 Current Medications Acetaminophen (Tylenol) 650 mg PO Q6H PRN PRN PRN Reason: Mild Pain (1-3)/Temp > 100.7 F Atorvastatin Calcium (Lipitor) 40 mg PO QHS [facility] Last Admin: 01/09/18 21:35 Dose: 40 mg Budesonide (Pulmicort Aerosol) 0.5 mg INHALATION BID.RT [facility] Last Admin: 01/10/18 06:42 Dose: 0.5 mg Clopidogrel Bisulfate (Plavix) 75 mg PO DAILY [facility] Last Admin: 01/09/18 09:58 Dose: 75 mg Heparin Sodium (Porcine) (Heparin Na) 5,000 unit SC Q8 [facility] Last Admin: 01/10/18 06:13 Dose: 5,000 u Sodium Chloride () 250 mls @ 15 mls/hr IV .[id number] PRN PRN Reason: SALINE FLUSH Last Admin: 01/10/18 07:00 Dose: 15 mls/hr Dextrose/Sodium Chloride () 1,000 mls @ 125 mls/hr IV .Q8H [facility] Last Admin: 01/10/18 07:05 Dose: 125 mls/hr Levofloxacin (Levaquin) 750 mg PO Q48 [facility] Nutritional Formula (Lactose Free) (Ensure Enlive) 120 ml PO 4X/DAY [facility] Last Admin: 01/09/18 21:35 Dose: 120 ml Oxycodone HCl (Oxyir) 5 - 10 mg PO Q4H PRN PRN PRN Reason: MOD-SEVERE PAIN (4-10/10) Sodium Chloride () 5 - 30 ml IV UD PRN PRN Reason: SALINE FLUSH Last Admin: 01/10/18 06:13 Dose: 10 ml Sodium Chloride () 10 - 40 ml IV UD PRN PRN Reason: MULTILUMEN/HICMAN CATH FLUSH Assessment/Plan Active and Suspected Problems PNA (pneumonia) (Acute) Septic shock (Acute) Hypoxia (Acute) Nicotine abuse (Acute) History of TIA (transient ischemic attack) (Acute) This 67-year-old female with history of heavy smoking since age of 10, a pack per day came to ER with cough which is chronic in nature, dizziness, pleuritic chest pain left-sided and in ER she was found hypotensive, hypoxic consistent with septic shock. She also had weight loss of 20 pounds since [place] last year. She had a CT scan by family practice which showed left upper lobe mass, she was further admitted in ICU for septic shock, MOST probably due to postobstructive pneumonia and hypotension state probably related to septic shock or polypharmacy. 1. Septic shock 2/2 MAX pna - community acquired or possibly postobstructive PNA from left upper lobe lung lesion which is concerning for malignancy: On IV Zosyn transitioned to oral Levaquin to complete 7 day course.. Cultures NTD. Cosyntropin stim test pending. Resp panel negative. Resp cx with no growth. Blood cx pending. Urine ag neg. Hold antihypertensive medications for now. 2. MAX mass with high concern for malignancy with history of smoking: Weatherization Field Technician/Pulm consulted viewed and appreciated. Upper lobe mass highly suspicious for lung ca with current imaging and her hx of smoking, CT findings of spiculated lung mass, lymphadenopathy, and recent weight loss. Scheduled for CT-guided needle biopsy. 3. Underlying COPD with acute exacerbation - failed outpatient aerosols and prednisone. On pulmicort, duonebs. 4. Hx TIA - on Plavix, statin 5. HTN - hold antihypertensives 2/2 #1. 6. Severe malnutrition - recent 20 lb weight loss. Coining Press Operator eval for supplementation. 7. Carotid stenosis - prior endarterectomy left side x2 and right x1 - loud bruit on exam. 8. Hypokalemia / Hypomagnesemia - replete both. Phos normal. 9. Normocytic anemia - stable. DVT ppx: SCDs, heparin This note was generated with Occipital dictation software. Every effort was made to ensure accuracy, however computerized couture alterations dressmaker mistakes may persist. Code Visit Inpatient E&M: 62148 Subs Hosp L3
--- NOTE | 2018-01-10 11:00 | NURSING ---
to radiology for biopsy. report given to pen and pencil repairerTammy
--- NOTE | 2018-01-10 11:45 | RAD_ITS ---
STUDY: X-RAY CHEST REASON FOR EXAM: Female, 67 years old. Status post left lung biopsy. TECHNIQUE: AP inspiration and expiration views were obtained. COMPARISON: Comparison is made with prior examination dated January 09, 2019. FINDINGS: EKG electrodes are seen. A left-sided subclavian catheter is seen with the tip in the distal portion of the left brachiocephalic vein. Persistent left upper lobe mass. Small left apical pneumothorax. RAD/Chest Insp/Exp 2 View IMPRESSION: Small left apical pneumothorax. The patient is asymptomatic. Electronically Signed: Golden Powell MD at 12:18 EDT Tel [phone], Service support ,
--- NOTE | 2018-01-10 12:55 | NURSING ---
returned from radiology, report recd from Tammy PATEL
--- NOTE | 2018-01-10 13:45 | RAD_ITS ---
STUDY: X-RAY CHEST REASON FOR EXAM: Female, 67 years old. The lower posterior left lung biopsy. TECHNIQUE: Frontal inspiration and expiration views were obtained. COMPARISON: Comparison is made with prior study in the abdomen today. FINDINGS: There is no evidence of a left-sided pneumothorax on this examination. Persistent infiltrate in the left midlung. RAD/Chest Insp/Exp 2 View IMPRESSION: No evidence of pneumothorax on the 2 hour post left lung biopsy radiograph. Electronically Signed: Golden Powell MD at 15:27 EDT Tel [phone], Service support ,
[2018-01-10] MEDS: levoFLOXacin 750 MG Tablet PO (14:22)
[2018-01-10] MEDS: Midodrine HCl 5 MG Tablet 10 MG PO ×2 (14:22→21:21)
[2018-01-10] MEDS: Clopidogrel Bisulfate 75 MG Tablet PO (14:23)
--- NOTE | 2018-01-10 17:18 | NURSING ---
education RE HTN deferred till pt less hypotensive, per her request
[2018-01-10] MEDS: Ondansetron 4 MG/2 ML Vial IV (20:46)
[2018-01-10] MEDS: DiphenhydrAMINE 25 MG Capsule 50 MG PO (21:20)
[2018-01-11] VITALS (20 sets, daily range): BP systolic 82–138; BP diastolic 62–79; PULSE 71–99; RESP 15–20; TEMP 36.3–36.9; O2SAT 95–99
[2018-01-11 05:12] LABS: Anion Gap 5 (5-15); BUN 3 mg/dL (7-18); BUN/Creat Ratio 4.9 RATIO (10-20); Chloride 99 mmol/L (98-107); Creatinine, Serum 0.61 mg/dL (0.55-1.02); EST Glomerular Filtration Rate 103 mL/min (>60); Est Glom Filt Rate - Afr Amer 124 mL/min (>60); Estimated Creatinine Clearance 36.96 ml/min; Glucose 96 mg/dL (74-106); Magnesium 1.7 mg/dL (1.6-2.6); Potassium 3.7 mmol/L (3.5-5.1); Sodium Level 134 mmol/L (136-145)
[2018-01-11] MEDS: Dext 5%-0.45% NS 1,000 ML 125 ML IV ×3 (05:27→21:54)
[2018-01-11] MEDS: Midodrine HCl 5 MG Tablet 10 MG PO ×3 (05:28→21:56)
--- NOTE | 2018-01-11 06:34 | PN_ITS ---
Subjective: The patient was seen and examined at the bedside this morning. Events from the last 24 hours have been reviewed. The patient is currently afebrile, hemodynamically stable and maintaining appropriate oxygen saturations on room air. The patient was started on Midodrin yesterday due to tenuous blood pressure parameters. The patient is now overall net +4.3 L for the admission. She did undergo successful CT-guided lung biopsy yesterday with 3 core specimens obtained. She did sustain a small left iatrogenic apical pneumothorax as a consequence. This has since resolved on subsequent plain film chest imaging. Objective: The patient's most recent lab work, culture data and imaging studies have all been personally reviewed. Strep and urine Legionella antigens were both negative. Respiratory viral panel was negative. Blood and urine cultures have shown no growth to date. Expectorated sputum culture revealed 3+ white blood cells without organisms. On January 06, the patient underwent a contrasted chest CT at [facility], which per report revealed evidence of a spiculated left upper lobe mass measuring 3.9 x 4.1 cm. Patient also had radiographic evidence of bilateral upper lobe predominant emphysematous changes along with a density in the lingula and left lower lobe. The patient had an enlarged left hilar and right paratracheal lymph node. There is also incidental note of a soft tissue density measuring 1.7 x 2.3 cm in the subcutaneous tissue of the posterior chest at the level of the ninth rib. CT chest in our system dated April 2014 which did demonstrate a subcutaneous mass in the right side of the back that measured 1 x 2.4 cm. There was also note of an 8 mm groundglass density noted in the left upper lobe at that time. General: Alert, Cooperative, No apparent distress HEENT: Atraumatic, PERRLA, Normocephalic Oral: Moist Mucosa, No Gingival or Mucosal Lesions/ Ulcerations Neck: Supple, No Nodes, Trachea Midline Lungs: No rhonchi, No wheeze, No rales, Diminished Cardiovascular: Regular rate, Regular Rhythm, Normal S1, Normal S2, No murmurs, No rub noted, No Gallop Abdomen: Bowel Sounds Present, Soft, Non Tender Extremities: No clubbing, No cyanosis, No edema Skin: No rashes, No breakdown Musculoskeletal: No Tenderness to Palpation of Joints or Extremities Neurological: Neuro grossly intact Psych/Mental Status: Normal Affect, Appropriate Vital Signs Temp Pulse Resp BP Pulse Ox 97.7 F L 95 20 H 118/73 95 01/11/18 06:00 01/11/18 06:00 01/11/18 06:00 01/11/18 06:00 01/11/18 06:00 Oxygen Flow Rate (L/min) 2 Oxygen Delivery Method Room Air Weight: 97 lb 3.582 oz Body Mass Index (BMI) 18.1 Orthostatic Vital Signs Start: 01/08/18 12:08 Freq: q24h Status: Active Protocol: Activity Type Activity Date Activity User E-Sign Co-Sign Detail Recorded Client Recorded Date Recorded By Document 01/08/18 12:08 [facility] [id number] 01/08/18 12:19 [facility] 01/08/18 12:08 Orthostatic Vitals Standing -Blood Pressure (90/60-120/80) 98/67 -Extremity Use Left Arm -Pulse Rate (60-100) 93 Sitting -Blood Pressure (90/60-120/80) 97/68 -Extremity Use Left Arm -Pulse Rate (60-100) 94 Lying -Blood Pressure (90/60-120/80) 93/60 -Extremity Use Left Arm -Pulse Rate (60-100) 92 Intake and Output for Last 24 Hours 01/09/18 01/10/18 01/11/18 23:59 23:59 23:59 Intake Total 5 / 2054 1188 / 1188 Output Total 2250 / 2250 Balance -195 / -195 1188 / 1188 Labs (Last 48 Hours) 01/09/18 01/09/18 01/09/18 04:20 08:45 09:20 WBC RBC Hgb Hct MCV MCH MCHC RDW RDW Differential Plt Count MPV Immature Gran % (Auto) Neut % (Auto) Lymph % (Auto) Henderson % (Auto) Eos % (Auto) Baso % (Auto) Absolute Neuts (auto) Absolute Lymphs (auto) Total Counted Sodium Potassium Chloride Carbon Dioxide Anion Gap BUN Creatinine Estim Creat Clear Calc Est GFR (MDRD) Af Amer Est GFR (MDRD) Non-Af BUN/Creatinine Ratio Glucose Calcium Phosphorus 3.1 Magnesium 1.2 L Cortisol 19.90 32.20 H 01/09/18 01/10/18 01/10/18 09:50 04:50 04:50 WBC 9.5 RBC 3.24 L Hgb 9.8 L Hct 30.5 L MCV 94.1 MCH 30.2 MCHC 32.1 RDW 12.4 RDW Differential 41.2 Plt Count 453 H MPV 9.0 Immature Gran % (Auto) 0.300 Neut % (Auto) 77.3 H Lymph % (Auto) 10.6 L Henderson % (Auto) 9.4 Eos % (Auto) 2.3 Baso % (Auto) 0.1 Absolute Neuts (auto) 7.3 Absolute Lymphs (auto) 1.00 Total Counted Not Reportable Sodium 136 Potassium 4.2 Chloride 100 Carbon Dioxide 29.0 Anion Gap 7 BUN 5 L Creatinine 0.61 Estim Creat Clear Calc 36.96 Est GFR (MDRD) Af Amer 126 Est GFR (MDRD) Non-Af 104 BUN/Creatinine Ratio 8.2 L Glucose 120 H Calcium 8.3 L Phosphorus Magnesium 1.6 Cortisol 33.10 H 01/11/18 04:15 WBC RBC Hgb Hct MCV MCH MCHC RDW RDW Differential Plt Count MPV Immature Gran % (Auto) Neut % (Auto) Lymph % (Auto) Henderson % (Auto) Eos % (Auto) Baso % (Auto) Absolute Neuts (auto) Absolute Lymphs (auto) Total Counted Sodium 134 L Potassium 3.7 Chloride 99 Carbon Dioxide 30.0 Anion Gap 5 BUN 3 L Creatinine 0.61 Estim Creat Clear Calc 36.96 Est GFR (MDRD) Af Amer 124 Est GFR (MDRD) Non-Af 103 BUN/Creatinine Ratio 4.9 L Glucose 96 Calcium 8.0 L Phosphorus Magnesium 1.7 Cortisol Microbiology 01/07/18 18:05 Blood Culture (Wb) #2 - Anticubital Right Blood Culture - Preliminary No growth in 48 hours. 01/07/18 18:33 Blood Culture (Wb) - Arm Left Blood Culture - Preliminary No growth in 48 hours. 01/08/18 10:20 Sputum, Expectorated/Coughed Gram Stain - Final 01/08/18 10:20 Sputum, Expectorated/Coughed Respiratory Culture - Preliminary Appears to be normal respiratory javier. Further studies to follow. 01/07/18 20:45 Urine Catheter - Mello Urine Culture - Final Culture exhibits no growth. 01/09/18 18:15 Stool C. difficile DNA Amplification - Final Clinical Impression(s) from Imaging Studies Chest X-Ray 01/07/18 17:10 IMPRESSION: There is a new left upper lobe masslike density which may represent infection in an area of prior emphysematous change however lung cancer should be excluded. Recommend CT scan of the chest. Pulmonary emphysema chronic obstructive pulmonary disease. N.B. : The above information has been verbally conveyed by Razia Zuniga MD to Dr Jacuqes, Referring Physician, on 01/07/2018 17:34:03 (ET). Electronically Signed: Razia Zuniga MD at 17:30 EST Tel , Service support , N.B. : The above information has been verbally conveyed by Razia Zuniga MD to Dr Jacques, Referring Physician, on 01/07/2018 17:34:03 (ET). Chest X-Ray 01/07/18 19:48 IMPRESSION: A new left subclavian line terminates in the mid SVC. No other changes. Electronically Signed: Erik Mcclelland MD at 20:24 EST , Service support , Chest X-Ray 01/08/18 05:55 IMPRESSION: Redemonstration of a left upper lobe infiltrate or mass, not significant changed from yesterday's exams. Suggestion of COPD. Central line is in stable position. Electronically Signed: Flaquito Mcfarlane MD at 5:31 EST , Service support , Chest X-Ray 01/09/18 04:37 IMPRESSION: Redemonstration of a rounded infiltrate or mass in the left upper lung field, not significant changed over the last few days. Consider CT scan chest for further evaluation. Suggestion of COPD. Central venous catheter. Electronically Signed: Flaquito Mcfarlane MD at 6:22 EDT , Service support , Biopsy CT 01/10/18 06:43 IMPRESSION: 1. CT directed core needle biopsy of the left upper lobe mass using CT image guidance with image documentation as described. Pathology results are pending. 2. Conscious Sedation protocol utilized with independent monitoring. Electronically Signed: Golden Powell MD at 12:38 EDT Tel [phone], Service support , Chest X-Ray 01/10/18 11:45 IMPRESSION: Small left apical pneumothorax. The patient is asymptomatic. Electronically Signed: Golden Powell MD at 12:18 EDT Tel [phone], Service support , Chest X-Ray 01/10/18 13:45 IMPRESSION: No evidence of pneumothorax on the 2 hour post left lung biopsy radiograph. Electronically Signed: Golden Powell MD at 15:27 EDT Tel [phone], Service support , Assessment/Plan Active and Suspected Problems PNA (pneumonia) (Acute) Septic shock (Acute) Hypoxia (Acute) Nicotine abuse (Acute) History of TIA (transient ischemic attack) (Acute) RECOMMENDATIONS: 1. Encourage p.o. intake. Nutrition services is following. 2. Continue p.o. Levaquin to complete a total 7 day treatment course of antibiotics. 3. Continue duo nebs and Pulmicort 4. Continue subcutaneous heparin for DVT prophylaxis 5. Encourage incentive spirometer use and mobilize patient as tolerated. 6. Perform walking oximetry study prior to consideration for discharge from the hospital. 7. Continue Midodrine. 8. The patient should have a follow-up office visit planned with our nurse practitioner within 2 weeks of her discharge from the hospital. She will require baseline PFTs. Results from her percutaneous lung biopsy can be discussed with her at that time. IMPRESSIONS: 1. Septic shock Resolved. There was initial concern that the patient's left upper lobe lung lesion could represent an infection versus malignancy. She did present to the emergency department in a hypotensive state. Although this may be related to an underlying pulmonary infectious process, it could also be the consequence of general intravascular volume depletion from poor p.o. intake, coupled with polypharmacy for hypertension. The patient has responded to IV fluid resuscitation. We will plan to continue supplemental IV fluid hydration for now. Continue to hold home antihypertensive regimen. Encourage p.o. intake. Continue p.o. Levaquin to complete a 7 day treatment course for presumptive pneumonia. 2. Left upper lobe lung mass Given the patient's smoking history, this is certainly concerning for an underlying malignancy. The patient underwent successful percutaneous CT-guided lung biopsy yesterday with 3 core samples obtained. I did personally review the patient's CT imaging from the outside hospital. Results from the patient's lung biopsy can be discussed at her follow-up office visit in the pulmonary medicine clinic, which is recommended within 2 weeks of her discharge from the hospital. 3. Continuous tobacco dependence The patient has an extensive smoking history of 50+ pack years. Smoking cessation is advised. Baseline PFTs will be obtained on an outpatient basis. 4. Presumptive COPD Although the patient has been told that she has COPD previously, she has never undergone formal pulmonary function testing. Recommend close outpatient follow- up so that baseline PFTs can be obtained. For now, agree with continuing duo nebs and budesonide. 5. Personal history of hypertension Discontinue antihypertensives at discharge. This note was generated with [employer] dictation software. It may contain incorrect words, spelling, and punctuation that were not noted in checking the note before signing. DISPOSITION: The patient is medically stable for transfer out of the intensive care unit. Code Visit Inpatient E&M: 65875 Subs Hosp L2
[2018-01-11] MEDS: Budesonide Respules 0.5 MG/2 ML AMPUL.NEB. INHALATION ×2 (07:12→19:01)
[2018-01-11] MEDS: Ipratropium/Albuterol Sulfate 3 ML AMPUL.NEB INHALATION ×3 (07:12→19:01)
--- NOTE | 2018-01-11 07:46 | PN_ITS ---
Patient Problems: Active and Suspected Problems PNA (pneumonia) (Acute) Septic shock (Acute) Hypoxia (Acute) Nicotine abuse (Acute) History of TIA (transient ischemic attack) (Acute) Subjective: The patient had left upper lobe nodule lung biopsy yesterday. Sitting upright on the bed. Blood pressure profile is better after starting on midodrine. Hemodynamically stable with pulse ox 95% on room air, respiratory rate 18. Currently patient is on the stepdown PCU status. Vitals/I&O's: Vital Signs Temp Pulse Resp BP Pulse Ox 97.7 F L 84 19 H 118/73 96 01/11/18 06:00 01/11/18 07:14 01/11/18 07:14 01/11/18 06:00 01/11/18 07:14 Oxygen Flow Rate (L/min) 2 Oxygen Delivery Method Room Air Weight: 97 lb 3.582 oz Body Mass Index (BMI) 18.1 Orthostatic Vital Signs Start: 01/08/18 12:08 Freq: q24h Status: Active Protocol: Activity Type Activity Date Activity User E-Sign Co-Sign Detail Recorded Client Recorded Date Recorded By Document 01/08/18 12:08 [facility] [id number] 01/08/18 12:19 [facility] 01/08/18 12:08 Orthostatic Vitals Standing -Blood Pressure (90/60-120/80) 98/67 -Extremity Use Left Arm -Pulse Rate (60-100) 93 Sitting -Blood Pressure (90/60-120/80) 97/68 -Extremity Use Left Arm -Pulse Rate (60-100) 94 Lying -Blood Pressure (90/60-120/80) 93/60 -Extremity Use Left Arm -Pulse Rate (60-100) 92 Intake and Output for Last 24 Hours 01/09/18 01/10/18 01/11/18 23:59 23:59 23:59 Intake Total 2054 1188 / 1188 Output Total 2250 / 2250 Balance -195 / -195 1188 / 1188 General: Alert, Oriented x3, Cooperative HEENT: Atraumatic, PERRLA, EOMI, Normocephalic Neck: Supple, No JVD, Negative Carotid Bruits Lungs: Clear to auscultation, No rhonchi, No wheeze, No rales, Diminished Cardiovascular: Regular rate, Regular Rhythm, Normal S1, Normal S2, No murmurs Abdomen: Bowel Sounds Present, Soft, Non Tender, Non-Distended Extremities: No edema, Capillary Refill Less than 3 Seconds Skin: No rashes, No breakdown Musculoskeletal: No Tenderness to Palpation of Joints or Extremities, Arthritic Changes Neurological: Cranial nerves II-XII grossly intact, Neuro grossly intact Psych/Mental Status: Normal Affect, Appropriate Microbiology Past 72 Hours 01/07/18 18:05 Blood Culture (Wb) #2 - Anticubital Right Blood Culture - Preliminary No growth in 48 hours. 01/07/18 18:33 Blood Culture (Wb) - Arm Left Blood Culture - Preliminary No growth in 48 hours. 01/08/18 10:20 Sputum, Expectorated/Coughed Gram Stain - Final 01/08/18 10:20 Sputum, Expectorated/Coughed Respiratory Culture - Preliminary Appears to be normal respiratory javier. Further studies to follow. 01/07/18 20:45 Urine Catheter - Mello Urine Culture - Final Culture exhibits no growth. 01/09/18 18:15 Stool C. difficile DNA Amplification - Final 01/08/18 07:30 Mucosa - Nose Respiratory Panel (PCR) - Final Laboratory Results 01/09/18 08:45: Cortisol 19.90 01/09/18 09:20: Cortisol 32.20 H 01/09/18 09:50: Cortisol 33.10 H 01/11/18 04:15: Sodium 134 L, Potassium 3.7, Chloride 99, Carbon Dioxide 30.0, Anion Gap 5, BUN 3 L, Creatinine 0.61, Estim Creat Clear Calc 36.96, Est GFR ( MDRD) Af Amer 124, Est GFR (MDRD) Non-Af 103, BUN/Creatinine Ratio 4.9 L, Glucose 96, Calcium 8.0 L, Magnesium 1.7 Current Medications Acetaminophen (Tylenol) 650 mg PO Q6H PRN PRN PRN Reason: Mild Pain (1-3)/Temp > 100.7 F Albuterol/Ipratropium (Duoneb) 3 ml INHALATION Q6HWA.RT [facility] Last Admin: 01/11/18 07:12 Dose: 3 ml Atorvastatin Calcium (Lipitor) 40 mg PO QHS JOSE Last Admin: 01/10/18 21:28 Dose: Not Given Budesonide (Pulmicort Aerosol) 0.5 mg INHALATION BID.RT [facility] Last Admin: 01/11/18 07:12 Dose: 0.5 mg Clopidogrel Bisulfate (Plavix) 75 mg PO DAILY [facility] Last Admin: 01/10/18 14:23 Dose: 75 mg Heparin Sodium (Porcine) (Heparin Na) 5,000 unit SC Q8 [facility] Last Admin: 01/11/18 05:28 Dose: 5,000 u Sodium Chloride () 250 mls @ 15 mls/hr IV .[id number] PRN PRN Reason: SALINE FLUSH Last Admin: 01/10/18 07:00 Dose: 15 mls/hr Dextrose/Sodium Chloride () 1,000 mls @ 125 mls/hr IV .Q8H [facility] Last Admin: 01/11/18 05:27 Dose: 125 mls/hr Levofloxacin (Levaquin) 750 mg PO Q48 [facility] Last Admin: 01/10/18 14:22 Dose: 750 mg Midodrine (Proamatine) 10 mg PO TID [facility] Last Admin: 01/11/18 05:28 Dose: 10 mg Nutritional Formula (Lactose Free) (Ensure Clear) 120 ml PO 4X/DAY [facility] Last Admin: 01/10/18 21:21 Dose: Not Given Ondansetron HCl (Zofran) 4 mg IV Q8H PRN PRN PRN Reason: NAUSEA/VOMITING Last Admin: 01/10/18 20:46 Dose: 4 mg Oxycodone HCl (Oxyir) 5 - 10 mg PO Q4H PRN PRN PRN Reason: MOD-SEVERE PAIN (4-10/10) Sodium Chloride () 5 - 30 ml IV UD PRN PRN Reason: SALINE FLUSH Last Admin: 01/10/18 20:46 Dose: 20 ml Sodium Chloride () 10 - 40 ml IV UD PRN PRN Reason: MULTILUMEN/HICMAN CATH FLUSH Assessment/Plan Active and Suspected Problems PNA (pneumonia) (Acute) Septic shock (Acute) Hypoxia (Acute) Nicotine abuse (Acute) History of TIA (transient ischemic attack) (Acute) This 67-year-old female with history of heavy smoking since age of 10 , a pack per day came to ER with cough which is chronic in nature, dizziness, pleuritic chest pain left-sided and in ER she was found hypotensive, hypoxic consistent with septic shock. She also had weight loss of 20 pounds since [place] last year. She had a CT scan by [facility] which showed left upper lobe mass, she was further admitted in ICU for septic shock, MOST probably due to postobstructive pneumonia and hypotension state probably related to septic shock or polypharmacy. 1. Septic shock 2/2 MAX pna - community acquired or possibly postobstructive PNA from left upper lobe lung lesion which is concerning for malignancy: On IV Zosyn transitioned to oral Levaquin to complete 7 day course.. Cultures NTD. Cosyntropin stim test pending. Resp panel negative. Resp cx with no growth. Blood cx pending. Urine ag neg. Hold antihypertensive medications for now. 2. MAX mass with high concern for malignancy with history of smoking status post CT-guided core needle biopsy: Can Marker/Pulm consulted viewed and appreciated. Upper lobe mass highly suspicious for lung ca with current imaging and her hx of smoking, CT findings of spiculated lung mass, lymphadenopathy, and recent weight loss. Chest x-ray after biopsy shows small clinically insignificant left apical pneumothorax but repeat chest x-ray after 2 hours shows no evidence of pneumothorax. Biopsy report is pending. 3. Underlying COPD with acute exacerbation - failed outpatient aerosols and prednisone. On pulmicort, duonebs. 4. Hx TIA - on Plavix, statin 5. HTN - hold antihypertensives 2/2 #1. 6. Severe malnutrition - recent 20 lb weight loss. Gear [employer] Set Up Operator eval for supplementation. The patient had cosyntropin test which is negative. Baseline 19 and went up 32.2 after cosyntropin test; consistent with normal response with cosyntropin. 7. Carotid stenosis - prior endarterectomy left side x2 and right x1 - loud bruit on exam. 8. Hypokalemia / Hypomagnesemia - replete both. Phos normal. 9. Normocytic anemia - stable. DVT ppx: SCDs, heparin This note was generated with [employer] dictation software. Every effort was made to ensure accuracy, however computerized tensioning machine operator mistakes may persist. Clinical Impression(s) from Imaging Studies Chest X-Ray 01/07/18 17:10 IMPRESSION: There is a new left upper lobe masslike density which may represent infection in an area of prior emphysematous change however lung cancer should be excluded. Recommend CT scan of the chest. Pulmonary emphysema chronic obstructive pulmonary disease. Biopsy CT 01/10/18 06:43 IMPRESSION: 1. CT directed core needle biopsy of the left upper lobe mass using CT image guidance with image documentation as described. Pathology results are pending. 2. Conscious Sedation protocol utilized with independent monitoring. Chest X-Ray 01/10/18 11:45 IMPRESSION: Small left apical pneumothorax. The patient is asymptomatic. Chest X-Ray 01/10/18 13:45 IMPRESSION: No evidence of pneumothorax on the 2 hour post left lung biopsy radiograph. Microbiology Past 72 Hours 01/08/18 10:20 Sputum, Expectorated/Coughed Gram Stain - Final 01/08/18 10:20 Sputum, Expectorated/Coughed Respiratory Culture - Final 01/07/18 18:05 Blood Culture (Wb) #2 - Anticubital Right Blood Culture - Preliminary No growth in 48 hours. 01/07/18 18:33 Blood Culture (Wb) - Arm Left Blood Culture - Preliminary No growth in 48 hours. 01/07/18 20:45 Urine Catheter - Mello Urine Culture - Final Culture exhibits no growth. 01/09/18 18:15 Stool C. difficile DNA Amplification - Final 01/08/18 07:30 Mucosa - Nose Respiratory Panel (PCR) - Final Laboratory Results 01/09/18 08:45: Cortisol 19.90 01/09/18 09:20: Cortisol 32.20 H 01/09/18 09:50: Cortisol 33.10 H 01/11/18 04:15: Sodium 134 L, Potassium 3.7, Chloride 99, Carbon Dioxide 30.0, Anion Gap 5, BUN 3 L, Creatinine 0.61, Estim Creat Clear Calc 36.96, Est GFR ( MDRD) Af Amer 124, Est GFR (MDRD) Non-Af 103, BUN/Creatinine Ratio 4.9 L, Glucose 96, Calcium 8.0 L, Magnesium 1.7 Code Visit Inpatient E&M: 34497 Subs Hosp L3
[2018-01-11] MEDS: Clopidogrel Bisulfate 75 MG Tablet PO (09:30)
[2018-01-11] MEDS: Famotidine 20 MG Tablet PO ×2 (13:07→22:00)
[2018-01-11] MEDS: Calcium Carbonate 500 MG Tablet PO (13:07)
[2018-01-11] MEDS: 0.9% NaCl Peripheral Flush Adult/Peds IV (15:16)
[2018-01-11] MEDS: Ondansetron 4 MG/2 ML Vial IV (15:16)
[2018-01-11] MEDS: Acetaminophen 325 MG Tablet 650 MG PO (18:15)
[2018-01-11] MEDS: Atorvastatin Calcium 40 MG Tablet PO (21:56)
[2018-01-12] VITALS (11 sets, daily range): BP systolic 99–136; BP diastolic 68–86; PULSE 69–98; RESP 16–20; TEMP 36.2–36.6; O2SAT 81–97
[2018-01-12] MEDS: Dext 5%-0.45% NS 1,000 ML 125 ML IV (06:06)
[2018-01-12] MEDS: Midodrine HCl 5 MG Tablet 10 MG PO (06:06)
--- NOTE | 2018-01-12 07:24 | PCM.PROGNOTE ---
Patient Problems: Active and Suspected Problems PNA (pneumonia) (Acute) Septic shock (Acute) Hypoxia (Acute) Nicotine abuse (Acute) History of TIA (transient ischemic attack) (Acute) Subjective: The patient was seen and examined at the bedside this morning. Events from the last 24 hours have been reviewed. The patient is currently afebrile, hemodynamically stable and maintaining appropriate oxygen saturations on room air. The patient is currently over 7 L positive for the admission. She denies the presence of resting shortness of breath or cough. She reports feeling well and is anxious to be discharged home. The patient's pathology results from her recent CT-guided lung biopsy were conveyed to her at the bedside this morning. Questions were answered accordingly. Objective: The patient's most recent lab work, culture data and imaging studies have all been personally reviewed. Strep and urine Legionella antigens were both negative. Respiratory viral panel was negative. Blood and urine cultures have shown no growth to date. Expectorated sputum culture revealed 3+ white blood cells without organisms. On January 06, the patient underwent a contrasted chest CT at [facility], which per report revealed evidence of a spiculated left upper lobe mass measuring 3.9 x 4.1 cm. Patient also had radiographic evidence of bilateral upper lobe predominant emphysematous changes along with a density in the lingula and left lower lobe. The patient had an enlarged left hilar and right paratracheal lymph node. There is also incidental note of a soft tissue density measuring 1.7 x 2.3 cm in the subcutaneous tissue of the posterior chest at the level of the ninth rib. CT chest in our system dated April 2014 which did demonstrate a subcutaneous mass in the right side of the back that measured 1 x 2.4 cm. There was also note of an 8 mm groundglass density noted in the left upper lobe at that time. The patient's CT-guided lung biopsy revealed the presence of non-small cell carcinoma, favor adenocarcinoma. - Physical Exam General: Alert, Oriented x3, Cooperative, No apparent distress HEENT: Atraumatic, PERRLA, Normocephalic Oral: No Gingival or Mucosal Lesions/ Ulcerations Neck: Supple, No JVD, No Nodes, Trachea Midline Lungs: No rhonchi, No wheeze, No rales, Diminished Cardiovascular: Regular rate, Regular Rhythm, Normal S1, Normal S2, No murmurs Abdomen: Bowel Sounds Present, Soft, Non Tender, Non-Distended Extremities: No clubbing, No cyanosis, No edema Skin: No rashes, No breakdown Musculoskeletal: No Tenderness to Palpation of Joints or Extremities Neurological: Neuro grossly intact Psych/Mental Status: Normal Affect, Appropriate Vital Signs Temp Pulse Resp BP Pulse Ox 97.9 F 87 16 136/68 H 94 01/12/18 06:01 01/12/18 06:01 01/12/18 06:01 01/12/18 06:01 01/12/18 06:01 Oxygen Flow Rate (L/min) 2 Oxygen Delivery Method Room Air Weight: 100 lb 8.493 oz Body Mass Index (BMI) 18.1 Intake and Output for Last 24 Hours 01/10/18 01/11/18 01/12/18 23:59 23:59 23:59 Intake Total 2055 / 2055 2940 / 2940 1739 / 1739 Output Total 2250 / 2250 400 / 400 300 / 300 Balance -195 / -195 2540 / 2540 1439 / 1439 Microbiology Past 72 Hours 01/08/18 10:20 Gram Stain - Final Sputum, Expectorated/Coughed Respiratory Culture - Final 01/07/18 18:05 Blood Culture - Preliminary Blood Culture (Wb) #2 - Anticubital Right No growth in 48 hours. 01/07/18 18:33 Blood Culture - Preliminary Blood Culture (Wb) - Arm Left No growth in 48 hours. 01/07/18 20:45 Urine Culture - Final Urine Catheter - Mello Culture exhibits no growth. 01/09/18 18:15 C. difficile DNA Amplification - Final Stool Labs (Last 48 Hours) 01/09/18 01/09/18 01/09/18 08:45 09:20 09:50 Sodium Potassium Chloride Carbon Dioxide Anion Gap BUN Creatinine Estim Creat Clear Calc Est GFR (MDRD) Af Amer Est GFR (MDRD) Non-Af BUN/Creatinine Ratio Glucose Calcium Magnesium Cortisol 19.90 32.20 H 33.10 H 01/11/18 04:15 Sodium 134 L Potassium 3.7 Chloride 99 Carbon Dioxide 30.0 Anion Gap 5 BUN 3 L Creatinine 0.61 Estim Creat Clear Calc 36.96 Est GFR (MDRD) Af Amer 124 Est GFR (MDRD) Non-Af 103 BUN/Creatinine Ratio 4.9 L Glucose 96 Calcium 8.0 L Magnesium 1.7 Cortisol Microbiology 01/08/18 10:20 Sputum, Expectorated/Coughed Gram Stain - Final 01/08/18 10:20 Sputum, Expectorated/Coughed Respiratory Culture - Final 01/07/18 18:05 Blood Culture (Wb) #2 - Anticubital Right Blood Culture - Preliminary No growth in 48 hours. 01/07/18 18:33 Blood Culture (Wb) - Arm Left Blood Culture - Preliminary No growth in 48 hours. 01/07/18 20:45 Urine Catheter - Mello Urine Culture - Final Culture exhibits no growth. Clinical Impression(s) from Imaging Studies Chest X-Ray 01/07/18 17:10 IMPRESSION: There is a new left upper lobe masslike density which may represent infection in an area of prior emphysematous change however lung cancer should be excluded. Recommend CT scan of the chest. Pulmonary emphysema chronic obstructive pulmonary disease. N.B. : The above information has been verbally conveyed by Razia Zuniga MD to Dr Jacques, Referring Physician, on 01/07/2018 17:34:03 (ET). Electronically Signed: Razia Zuniga MD at 17:30 EST Tel , Service support , N.B. : The above information has been verbally conveyed by Razia Zuniga MD to Dr Jacques, Referring Physician, on 01/07/2018 17:34:03 (ET). Chest X-Ray 01/07/18 19:48 IMPRESSION: A new left subclavian line terminates in the mid SVC. No other changes. Electronically Signed: Erik Mcclelland MD at 20:24 EST , Service support , Chest X-Ray 01/08/18 05:55 IMPRESSION: Redemonstration of a left upper lobe infiltrate or mass, not significant changed from yesterday's exams. Suggestion of COPD. Central line is in stable position. Electronically Signed: Flaquito Mcfarlane MD at 5:31 EST , Service support , Chest X-Ray 01/09/18 04:37 IMPRESSION: Redemonstration of a rounded infiltrate or mass in the left upper lung field, not significant changed over the last few days. Consider CT scan chest for further evaluation. Suggestion of COPD. Central venous catheter. Electronically Signed: Flaquito Mcfarlane MD at 6:22 EDT , Service support , Biopsy CT 01/10/18 06:43 IMPRESSION: 1. CT directed core needle biopsy of the left upper lobe mass using CT image guidance with image documentation as described. Pathology results are pending. 2. Conscious Sedation protocol utilized with independent monitoring. Electronically Signed: Golden Powell MD at 12:38 EDT Tel [phone], Service support , Chest X-Ray 01/10/18 11:45 IMPRESSION: Small left apical pneumothorax. The patient is asymptomatic. Electronically Signed: Golden Powell MD at 12:18 EDT Tel [phone], Service support , Chest X-Ray 01/10/18 13:45 IMPRESSION: No evidence of pneumothorax on the 2 hour post left lung biopsy radiograph. Electronically Signed: Golden Powell MD at 15:27 EDT Tel [phone], Service support , Assessment/Plan Active and Suspected Problems PNA (pneumonia) (Acute) Septic shock (Acute) Hypoxia (Acute) Nicotine abuse (Acute) History of TIA (transient ischemic attack) (Acute) RECOMMENDATIONS: 1. Encourage p.o. intake. Nutrition services is following. 2. Continue p.o. Levaquin to complete a total 7 day treatment course of antibiotics. 3. Continue duo nebs and Pulmicort 4. Continue subcutaneous heparin for DVT prophylaxis 5. Encourage incentive spirometer use and mobilize patient as tolerated. 6. Perform walking oximetry study prior to consideration for discharge from the hospital. 7. Continue Midodrine. 8. The patient should have a follow-up office visit planned with our nurse practitioner within 2 weeks of her discharge from the hospital. She will require baseline PFTs. IMPRESSIONS: 1. Septic shock Resolved. There was initial concern that the patient's left upper lobe lung lesion could represent an infection versus malignancy. She did present to the emergency department in a hypotensive state. Although this may be related to an underlying pulmonary infectious process, it could also be the consequence of general intravascular volume depletion from poor p.o. intake, coupled with polypharmacy for hypertension. The patient has responded to IV fluid resuscitation. She was also started on Midodrin with subsequent improvement in blood pressure parameters. We will plan to discontinue supplemental IV fluid hydration at this time. Continue to encourage p.o. intake. Continue p.o. Levaquin to complete a 7 day treatment course for presumptive pneumonia. 2. Left upper lobe lung mass status post CT-guided lung biopsy consistent with non-small cell lung cancer (adenocarcinoma) The patient does have an extensive smoking history. The results from her CT-guided lung biopsy were personally conveyed to her at the bedside this morning. Will place consultation to oncology. The patient will require close outpatient follow-up and PET scan. 3. Continuous tobacco dependence The patient has an extensive smoking history of 50+ pack years. Smoking cessation is advised. Baseline PFTs will be obtained on an outpatient basis. 4. Presumptive COPD Although the patient has been told that she has COPD previously, she has never undergone formal pulmonary function testing. Recommend close outpatient follow-up so that baseline PFTs can be obtained. For now, agree with continuing duo nebs and budesonide. 5. Personal history of hypertension Discontinue antihypertensives at discharge. This note was generated with [employer] dictation software. It may contain incorrect words, spelling, and punctuation that were not noted in checking the note before signing. Once the patient has been seen by oncology, she can be discharged from my perspective. She will need outpatient follow-up scheduled with oncology and also needs to be seen in the pulmonary medicine clinic within 2 weeks of her discharge from the hospital. Will sign off at this time. Please call with any questions. Code Visit Inpatient E&M: 59978 Subs Hosp L2
--- NOTE | 2018-01-12 07:28 | PN_ITS ---
Patient Problems: Active and Suspected Problems PNA (pneumonia) (Acute) Septic shock (Acute) Hypoxia (Acute) Nicotine abuse (Acute) History of TIA (transient ischemic attack) (Acute) Subjective: The patient was seen and examined at the bedside this morning. Events from the last 24 hours have been reviewed. The patient is currently afebrile, hemodynamically stable and maintaining appropriate oxygen saturations on room air. The patient is currently over 7 L positive for the admission. She denies the presence of resting shortness of breath or cough. She reports feeling well and is anxious to be discharged home. The patient's pathology results from her recent CT-guided lung biopsy were conveyed to her at the bedside this morning. Questions were answered accordingly. Objective: The patient's most recent lab work, culture data and imaging studies have all been personally reviewed. Strep and urine Legionella antigens were both negative. Respiratory viral panel was negative. Blood and urine cultures have shown no growth to date. Expectorated sputum culture revealed 3+ white blood cells without organisms. On January 06, the patient underwent a contrasted chest CT at [facility], which per report revealed evidence of a spiculated left upper lobe mass measuring 3.9 x 4.1 cm. Patient also had radiographic evidence of bilateral upper lobe predominant emphysematous changes along with a density in the lingula and left lower lobe. The patient had an enlarged left hilar and right paratracheal lymph node. There is also incidental note of a soft tissue density measuring 1.7 x 2.3 cm in the subcutaneous tissue of the posterior chest at the level of the ninth rib. CT chest in our system dated April 2014 which did demonstrate a subcutaneous mass in the right side of the back that measured 1 x 2.4 cm. There was also note of an 8 mm groundglass density noted in the left upper lobe at that time. The patient's CT-guided lung biopsy revealed the presence of non-small cell carcinoma, favor adenocarcinoma. - Physical Exam General: Alert, Oriented x3, Cooperative, No apparent distress HEENT: Atraumatic, PERRLA, Normocephalic Oral: No Gingival or Mucosal Lesions/ Ulcerations Neck: Supple, No JVD, No Nodes, Trachea Midline Lungs: No rhonchi, No wheeze, No rales, Diminished Cardiovascular: Regular rate, Regular Rhythm, Normal S1, Normal S2, No murmurs Abdomen: Bowel Sounds Present, Soft, Non Tender, Non-Distended Extremities: No clubbing, No cyanosis, No edema Skin: No rashes, No breakdown Musculoskeletal: No Tenderness to Palpation of Joints or Extremities Neurological: Neuro grossly intact Psych/Mental Status: Normal Affect, Appropriate Vital Signs Temp Pulse Resp BP Pulse Ox 97.9 F 87 16 136/68 H 94 01/12/18 06:01 01/12/18 06:01 01/12/18 06:01 01/12/18 06:01 01/12/18 06:01 Oxygen Flow Rate (L/min) 2 Oxygen Delivery Method Room Air Weight: 100 lb 8.493 oz Body Mass Index (BMI) 18.1 Intake and Output for Last 24 Hours 01/10/18 01/11/18 01/12/18 23:59 23:59 23:59 Intake Total 2055 / 2055 2940 / 2940 1739 / 1739 Output Total 2250 / 2250 400 / 400 300 / 300 Balance -195 / -195 2540 / 2540 1439 / 1439 Microbiology Past 72 Hours 01/08/18 10:20 Gram Stain - Final Sputum, Expectorated/Coughed Respiratory Culture - Final 01/07/18 18:05 Blood Culture - Preliminary Blood Culture (Wb) #2 - Anticubital Right No growth in 48 hours. 01/07/18 18:33 Blood Culture - Preliminary Blood Culture (Wb) - Arm Left No growth in 48 hours. 01/07/18 20:45 Urine Culture - Final Urine Catheter - Mello Culture exhibits no growth. 01/09/18 18:15 C. difficile DNA Amplification - Final Stool Labs (Last 48 Hours) 01/09/18 01/09/18 01/09/18 08:45 09:20 09:50 Sodium Potassium Chloride Carbon Dioxide Anion Gap BUN Creatinine Estim Creat Clear Calc Est GFR (MDRD) Af Amer Est GFR (MDRD) Non-Af BUN/Creatinine Ratio Glucose Calcium Magnesium Cortisol 19.90 32.20 H 33.10 H 01/11/18 04:15 Sodium 134 L Potassium 3.7 Chloride 99 Carbon Dioxide 30.0 Anion Gap 5 BUN 3 L Creatinine 0.61 Estim Creat Clear Calc 36.96 Est GFR (MDRD) Af Amer 124 Est GFR (MDRD) Non-Af 103 BUN/Creatinine Ratio 4.9 L Glucose 96 Calcium 8.0 L Magnesium 1.7 Cortisol Microbiology 01/08/18 10:20 Sputum, Expectorated/Coughed Gram Stain - Final 01/08/18 10:20 Sputum, Expectorated/Coughed Respiratory Culture - Final 01/07/18 18:05 Blood Culture (Wb) #2 - Anticubital Right Blood Culture - Preliminary No growth in 48 hours. 01/07/18 18:33 Blood Culture (Wb) - Arm Left Blood Culture - Preliminary No growth in 48 hours. 01/07/18 20:45 Urine Catheter - Mello Urine Culture - Final Culture exhibits no growth. Clinical Impression(s) from Imaging Studies Chest X-Ray 01/07/18 17:10 IMPRESSION: There is a new left upper lobe masslike density which may represent infection in an area of prior emphysematous change however lung cancer should be excluded. Recommend CT scan of the chest. Pulmonary emphysema chronic obstructive pulmonary disease. N.B. : The above information has been verbally conveyed by Razia Zuniga MD to Dr Jacques, Referring Physician, on 01/07/2018 17:34:03 (ET). Electronically Signed: Razia Zuniga MD at 17:30 EST Tel , Service support , N.B. : The above information has been verbally conveyed by Razia Zuniga MD to Dr Jacques, Referring Physician, on 01/07/2018 17:34:03 (ET). Chest X-Ray 01/07/18 19:48 IMPRESSION: A new left subclavian line terminates in the mid SVC. No other changes. Electronically Signed: Erik Mcclelland MD at 20:24 EST , Service support , Chest X-Ray 01/08/18 05:55 IMPRESSION: Redemonstration of a left upper lobe infiltrate or mass, not significant changed from yesterday's exams. Suggestion of COPD. Central line is in stable position. Electronically Signed: Flaquito Mcfarlane MD at 5:31 EST , Service support , Chest X-Ray 01/09/18 04:37 IMPRESSION: Redemonstration of a rounded infiltrate or mass in the left upper lung field, not significant changed over the last few days. Consider CT scan chest for further evaluation. Suggestion of COPD. Central venous catheter. Electronically Signed: Flaquito Mcfarlane MD at 6:22 EDT , Service support , Biopsy CT 01/10/18 06:43 IMPRESSION: 1. CT directed core needle biopsy of the left upper lobe mass using CT image guidance with image documentation as described. Pathology results are pending. 2. Conscious Sedation protocol utilized with independent monitoring. Electronically Signed: Golden Powell MD at 12:38 EDT Tel [phone], Service support , Chest X-Ray 01/10/18 11:45 IMPRESSION: Small left apical pneumothorax. The patient is asymptomatic. Electronically Signed: Golden Powell MD at 12:18 EDT Tel [phone], Service support , Chest X-Ray 01/10/18 13:45 IMPRESSION: No evidence of pneumothorax on the 2 hour post left lung biopsy radiograph. Electronically Signed: Golden Powell MD at 15:27 EDT Tel [phone], Service support , Assessment/Plan Active and Suspected Problems PNA (pneumonia) (Acute) Septic shock (Acute) Hypoxia (Acute) Nicotine abuse (Acute) History of TIA (transient ischemic attack) (Acute) RECOMMENDATIONS: 1. Encourage p.o. intake. Nutrition services is following. 2. Continue p.o. Levaquin to complete a total 7 day treatment course of antibiotics. 3. Continue duo nebs and Pulmicort 4. Continue subcutaneous heparin for DVT prophylaxis 5. Encourage incentive spirometer use and mobilize patient as tolerated. 6. Perform walking oximetry study prior to consideration for discharge from the hospital. 7. Continue Midodrine. 8. The patient should have a follow-up office visit planned with our nurse practitioner within 2 weeks of her discharge from the hospital. She will require baseline PFTs. IMPRESSIONS: 1. Septic shock Resolved. There was initial concern that the patient's left upper lobe lung lesion could represent an infection versus malignancy. She did present to the emergency department in a hypotensive state. Although this may be related to an underlying pulmonary infectious process, it could also be the consequence of general intravascular volume depletion from poor p.o. intake, coupled with polypharmacy for hypertension. The patient has responded to IV fluid resuscitation. She was also started on Midodrin with subsequent improvement in blood pressure parameters. We will plan to discontinue supplemental IV fluid hydration at this time. Continue to encourage p.o. intake. Continue p.o. Levaquin to complete a 7 day treatment course for presumptive pneumonia. 2. Left upper lobe lung mass status post CT-guided lung biopsy consistent with non-small cell lung cancer (adenocarcinoma) The patient does have an extensive smoking history. The results from her CT- guided lung biopsy were personally conveyed to her at the bedside this morning. Will place consultation to oncology. The patient will require close outpatient follow-up and PET scan. 3. Continuous tobacco dependence The patient has an extensive smoking history of 50+ pack years. Smoking cessation is advised. Baseline PFTs will be obtained on an outpatient basis. 4. Presumptive COPD Although the patient has been told that she has COPD previously, she has never undergone formal pulmonary function testing. Recommend close outpatient follow- up so that baseline PFTs can be obtained. For now, agree with continuing duo nebs and budesonide. 5. Personal history of hypertension Discontinue antihypertensives at discharge. This note was generated with [employer] dictation software. It may contain incorrect words, spelling, and punctuation that were not noted in checking the note before signing. Once the patient has been seen by oncology, she can be discharged from my perspective. She will need outpatient follow-up scheduled with oncology and also needs to be seen in the pulmonary medicine clinic within 2 weeks of her discharge from the hospital. Will sign off at this time. Please call with any questions. Code Visit Inpatient E&M: 09942 Subs Hosp L2
[2018-01-12] MEDS: Famotidine 20 MG Tablet PO (09:54)
[2018-01-12] MEDS: levoFLOXacin 750 MG Tablet PO (09:54)
[2018-01-12] MEDS: Clopidogrel Bisulfate 75 MG Tablet PO (09:54)
--- NOTE | 2018-01-12 10:24 | CASEMGMT ---
AMANDA CHACKO reviewed TASHI, Cristal Wahl, handoff report. Per Cristal, TASHI will follow-up re: new cancer dx pending biopsy results. AMANDA CHACKO updated PCU Neisha AKINS, that per Dr. Blackwood's PN from 01/12/18 the biopsy revealed non-small cell carcinoma, favor adenocarcinoma. TASHI will follow-up with patient as appropriate. AILEEN NicoleN, RN-BC, CCM
--- NOTE | 2018-01-12 10:26 | CASEMGMT ---
AMANDA CHACKO reviewed patient's EMR and notes RN GINNA assessment was completed, , and patient's disposition plan is for home. The patient lives with her and prior to admission did not utilized mobility equipment or oxygen at home. The patient does have a nebulizer, and if needed, has no preference other than in-network status, for oxygen supplier at discharge. AMANDA CHACKO will continue to follow hospital course for transition and care coordination needs. Disposition: Home T. ZAIRA Phipps, RN-BC, CCM
[2018-01-12] MEDS: Ondansetron 4 MG/2 ML Vial IV (12:02)
[2018-01-12] MEDS: 0.9% NaCl Peripheral Flush Adult/Peds IV (12:02)
--- NOTE | 2018-01-12 12:47 | ONC.CON.INP2 ---
- Problem List (1) Cancer of upper lobe of left lung Status: Acute (2) PNA (pneumonia) Status: Acute (3) COPD (chronic obstructive pulmonary disease) Status: Chronic Consult Referring Physician: Dr Zamorano Consult Results: Lung cancer Subjective Date of Service:: 01/12/18 Chief Complaint: Septic Shock/Obstructive Pneumonia History of Present Illness: Patient is a 67-year-old female smoker since her teenage was an average 1+ pack per day who initially presented with symptoms suggestive of respiratory tract infection and a chest x-ray on January 05, 2018 at [facility] showed a left upper lobe mass. This prompted a CT scan on January 06 that confirmed a spiculated left upper lobe mass malignant appearing in addition to emphysematous changes. Soft tissue lesion overlying the right ninth rib posteriorly visualized corresponds to a chronic sebaceous cyst on the patient exam. The patient was hospitalized due to increasing dyspnea and hypotension and treated for pneumonia and a CT-guided biopsy of the left upper lobe mass confirmed an adenocarcinoma. Past Medical History: Chronic Problems HTN (hypertension) (Chronic) COPD (chronic obstructive pulmonary disease) (Chronic) Lung mass (Chronic) Past Medical/Surgical History: Past Medical History - Most Recent Inpatient Visit Past Medical History Start: 01/07/18 19:22 Text: Status: Complete Freq: ONCE Protocol: Document 01/07/18 19:33 [facility] [place] (Rec: 01/07/18 19:39 [facility] [place] [id number]) BMI Required to complete PMH What is Patient's BMI 18.1 Past Medical History Unable History Recalled No Query Text:Pt Unable/Family Not Present Neurologic Medical History Hx Stroke/TIA Yes: cva and tia Hx Dementia/Alzheimer's No Hx Parkinson's Disease No Hx Seizures No Hx Multiple Sclerosis No Hx Migraines Yes Cardiac Medical History VTE Present on Admission No Hx of Deep Vein Thrombosis/VTE/PE No Hx Hypertension Yes Hx Chest Pain/Angina No Hx Heart Attack No Hx Cardiac Surgery/Stents/Etc. No Hx Heart Failure No Hx Pacemaker/AICD No Hx Irregular Heartbeat and/or Afib No Hx Anticoagulant Therapy Yes: pl-avix Query Text:(Coumadin, Aspirin, Plavix, Xarelto, etc.) Hx Pain in Legs when Walking/Leg Cramps No Comments hypercholesterolemia Respiratory Medical History Hx COPD Yes Hx Emphysema No Hx Smoking Yes Smoking Status Current every day smoker Years Smoking 57 Packs Smoked per Day 1 Hx Tobacco Use in last 12 months Yes Sent to [facility] Yes Hx of Pipe Smoking No Hx of Cigar Smoking No Hx Sleep Apnea No Do you snore loudly (louder than talking No or can be heard through closed doors)? Do you often feel tired/ fatigued/ Yes sleepy during daytime? Has anyone observed you stop breathing No during sleep? STOP Results Positive GI Medical History Hx Ulcer No: gerd Hx Hepatitis No Hx Cirrhosis No Hx GI Bleed No Hx Unplanned Weight Loss Yes: 20+ pounds since [place] Genitourinary Medical History Indwelling Catheter in Place on Arrival/ No Admission Hx Renal Disease No Hx Dialysis No Musculoskeletal History Hx Arthritis Yes Hx Rheumatoid Arthritis No Endocrine Medical History Hx Diabetes No Hx Thyroid Disease No Hematologic Medical History Hx of Blood Transfusion No Hx of Transfusion in last 3 Months No Ever experience any problems with No transfusion(s)? Hx of Preganancy in last 3 Months No Nurse Filling Out Transfusion & SGESSEL Questions: Date: 01/07/18 Time: 19:38 Psycho/Social Medical History Hx Depression No Hx Anxiety No Hx Behavior Disorder No Hx Alcohol Use Yes: wine a couple of glasses daily Hx Substance Use No Other Medical History Hx Blood Disorders No Hx Anemia No Hx Cancer No Hx Drug Resistant Organism No Wound/Pressure Injury Present on Arrival No: to be assessed per primary /Admission rn Query Text:If yes, chart assessment in Shift/Clinical Findings Central Line/PICC/VAD Present on Arrival Yes /Admission Antibiotics within last 7 days? Yes Name of Antibiotic (Include dose/# days zithromax taken if known) Last day ATB taken 01/07/18 Risk for Readmission Number of Risk Factors 4 At Risk for Readmission Patient is At Risk For Readmission Patient is eligible for Call Back Y - Social History Smoking Status: Current every day smoker Allergies/Adverse Reactions: Allergy/AdvReac Type Severity Reaction Status Date / Time JAZMINE Inhibitors Allergy cough Verified 01/07/18 18:58 erythromycin base Allergy Hives Verified 01/07/18 18:58 vitamin A [From Retinol] Allergy Itching Verified 01/07/18 16:07 Home Medications Medication Instructions Recorded Albuterol Aerosols [Ventolin 2.5 mg INHALATION Q4H PRN PRN 01/07/18 Aerosols] Atorvastatin Calcium [Lipitor] 40 mg PO QHS 01/07/18 Clopidogrel Bisulfate [Plavix] 75 mg PO DAILY 01/07/18 Metoprolol(XL)Succ [Toprol Xl 100 mg PO DAILY 01/07/18 (Beta Lashawn)] Triamcinolone 0.1% Cream [Kenalog] 1 applic TOPICAL TID PRN 01/07/18 Valsartan 80 mg PO DAILY 01/07/18 Budesonide Aerosol [Pulmicort 0.5 mg INHALATION BID.RT #60 01/12/18 Respules] ampul.neb. Calcium Carbonate [Tums] 500 mg PO Q4H PRN PRN tablet 01/12/18 Famotidine [Pepcid] 20 mg PO DAILY tablet 01/12/18 Levofloxacin [Levaquin] 500 mg PO DAILY #5 tab 01/12/18 Midodrine HCl [Proamatine] 5 mg PO TID #50 tab 01/12/18 Review of Systems Constitutional:: Reports: Weakness, Fatigue. Denies: Fever, Sweats, Weight loss, Appetite change, Chills Cardiovascular:: Reports: Dyspnea on exertion, Shortness of breath. Denies: Chest pain, Palpitations, Orthopnea, PND Respiratory: Reports: Cough, Shortness of Breath, Shortness of breath upon exertion, Sputum production, Wheezing. Denies: Hemoptysis Gastrointestinal:: Denies: Abdominal pain, Nausea, Vomiting, Diarrhea, Constipation, Hematochezia Genitourinary: Denies: Dysuria, Hematuria, 15, Flank pain Musculoskeletal:: Denies: Back pain, Myalgia, Arthralgia Skin: Denies: Rash, Skin Changes, Wounds Neurological:: Denies: Headache, Dizziness, Visual changes, Tinnitus, Hearing loss Psychiatric: Denies: Anxiety, Depression, Homicidal Ideations, Suicidal Ideations Vital Signs Height 5 ft Weight: 45.6 kg Weight in Pounds 100.5 lbs Pulse Ox [AMBULATION with 93 Oxygen] Pulse Ox [AMBULATING on Room 81 Air] Pulse Ox [At REST on Room Air] 95 Pulse Ox 95 Temperature 97.5 F Pulse Rate [Standing] 93 Pulse Rate [Sitting] 94 Pulse Rate [Lying] 92 Pulse Rate 97 Respiratory Rate 20 Blood Pressure [Standing] 98/67 Blood Pressure [Sitting] 97/68 Blood Pressure [Lying] 93/60 Blood Pressure [BP] 85/67 Blood Pressure 136/75 Blood Pressure Position [BP] Semi-Fowlers Blood Pressure Position Semi-Fowlers - Physical Exam General: Alert, Oriented x3, No apparent distress, - - Thin built ECOG 2 HEENT: PERRLA, EOMI, Normocephalic, - - Ecchymoses around the right eye (following recent accidental fall) Oropharynx:: Dry mucosa Neck:: Supple, Trachea midline. Negative for: JVD, bilateral Cardiac:: Regular rate, Regular rhythm, Normal S1, Normal S2. Negative for: Murmur Lungs: Clear to auscultation, Diminished, Excusion symmetrical. Negative for: Rhonchi, Wheezes Abdomen:: Soft, Non-tender, Non-distended. Negative for: Hepatosplenomegaly Extremities:: Negative for: Cyanosis, Edema Neurological: Neuro grossly intact Skin:: Negative for: Lesions, Rash, Petechiae, Ecchymosis Psychiatric:: Appropriate affect, Euthymic Lymphatics:: Negative for: Cervical lymphadenopathy, Supraclavicular lymphadenopathy Laboratory Data: Microbiology 01/08/18 10:20 Gram Stain - Final Sputum, Expectorated/Coughed Respiratory Culture - Final 01/07/18 18:05 Blood Culture - Preliminary Blood Culture (Wb) #2 - Anticubital Right No growth in 48 hours. 01/07/18 18:33 Blood Culture - Preliminary Blood Culture (Wb) - Arm Left No growth in 48 hours. 01/07/18 20:45 Urine Culture - Final Urine Catheter - Mello Culture exhibits no growth. 01/09/18 18:15 C. difficile DNA Amplification - Final Stool Diagnostic Data: Diagnostic Data I personally reviewed the patient's CT images of January 10, 2018 and concur with the reported left upper lobe mass Biopsy CT 01/10/18 06:43 IMPRESSION: 1. CT directed core needle biopsy of the left upper lobe mass using CT image guidance with image documentation as described. Pathology results are pending. 2. Conscious Sedation protocol utilized with independent monitoring. Electronically Signed: Golden Powell MD at 12:38 EDT Tel [phone], Service support , Chest X-Ray 01/10/18 13:45 IMPRESSION: No evidence of pneumothorax on the 2 hour post left lung biopsy radiograph. 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 Patient presented with respiratory tract infection symptoms and is improving on antibiotics. Plan: 1. Staging of cancer with a PET CT and brain MRI. This can be done as outpatient. 2. We will follow-up after the staging with treatment recommendations. Patient was seen with her daughter impression and plan discussed. Medications: Prescriptions This Visit Medication Instructions Recorded Albuterol Aerosols [Ventolin 2.5 mg INHALATION Q4H PRN PRN 01/07/18 Aerosols] Atorvastatin Calcium [Lipitor] 40 mg PO QHS 01/07/18 Azithromycin [Azithromycin] 250 mg PO DAILY 01/07/18 Clopidogrel Bisulfate [Plavix] 75 mg PO DAILY 01/07/18 Metoprolol(XL)Succ [Toprol Xl 100 mg PO DAILY 01/07/18 (Beta Lashawn)] Prednisone [Prednisone] See Taper PO UD 01/07/18 Triamcinolone 0.1% Cream [Kenalog] 1 applic TOPICAL TID PRN 01/07/18 Valsartan 80 mg PO DAILY 01/07/18 Medications Added to Medication List This Visit Category Date Time Status Famotidine [Pepcid] Med 01/13/18 10:00 Active 20 mg PO DAILY Melatonin Med 01/12/18 22:00 Active 10 mg PO QHS Primary Care Provider: Estela Ferguson Referring Provider:
--- NOTE | 2018-01-12 12:49 | PCM.DC ---
- Discharge Diagnoses Current Active Problems: Current Active and Chronic Problems PNA (pneumonia) (Acute) Septic shock (Acute) HTN (hypertension) (Chronic) COPD (chronic obstructive pulmonary disease) (Chronic) Hypoxia (Acute) Nicotine abuse (Acute) History of TIA (transient ischemic attack) (Acute) Lung mass (Chronic) You will use the following diet at home:: Regular Discharge Activity: May not drive while taking narcotic pain medications. Call your doctor if you observe: Fever of 101 or Higher, Shortness of breath, Chest pain Allergies/Adverse Reactions: Allergies JAZMINE Inhibitors Allergy (Verified 01/07/18 18:58) cough erythromycin base Allergy (Verified 01/07/18 18:58) Hives vitamin A [From Retinol] Allergy (Verified 01/07/18 16:07) Itching Medications to take at Discharge Albuterol Aerosols [Ventolin Aerosols] 2.5 mg INHALATION Q4H PRN PRN 01/07/18 Atorvastatin Calcium [Lipitor] 40 mg PO QHS 01/07/18 Clopidogrel Bisulfate [Plavix] 75 mg PO DAILY 01/07/18 Metoprolol(XL)Succ [Toprol Xl (Beta Lashawn)] 100 mg PO DAILY 01/07/18 Triamcinolone 0.1% Cream [Kenalog] 1 applic TOPICAL TID PRN 01/07/18 Valsartan 80 mg PO DAILY 01/07/18 Budesonide Aerosol [Pulmicort Respules] 0.5 mg INHALATION BID.RT #60 ampul.neb. 01/12/18 Calcium Carbonate [Tums] 500 mg PO Q4H PRN PRN tablet 01/12/18 Famotidine [Pepcid] 20 mg PO DAILY tablet 01/12/18 Levofloxacin [Levaquin] 500 mg PO DAILY #5 tab 01/12/18 Midodrine HCl [Proamatine] 5 mg PO TID #50 tab 01/12/18 The following prescriptions were given: Budesonide Aerosol [Pulmicort Respules] 0.5 mg INHALATION BID.RT #60 ampul.neb. Levofloxacin [Levaquin] 500 mg PO DAILY #5 tab Midodrine HCl [Proamatine] 5 mg PO TID #50 tab Primary Care Physician: [facility] Doctor,Out of [NON-STAFF] - Please follow up with your Primary Care Physician in: in 2 weeks Please Follow Up With: Giuliana Rivera MD When: next week; 01/18/18 Please Follow Up With: Dc Blackwood DO When: in 2-3 weeks
--- NOTE | 2018-01-12 12:51 | DS.PCM_ITS ---
Discharge Date and Diagnosis Date of Admission: 01/07/18 Date of Discharge: 01/12/18 - Primary Discharge Diagnosis Active and Suspected Problems 1. Septic shock 2/2 MAX community acquired or possibly postobstructive PNA from left upper lobe lung adenocarcinoma 2. Acute hypoxic respiratory failure secondary to COPD exacerbation complicated with community-acquired pneumonia as well as septic shock: 2. MAX adenocarcinoma, non-small cell lung cancer: 3. Underlying COPD with acute exacerbation Severe protein calorie malnutrition - recent 20 lb weight loss. - Secondary Discharge Diagnosis Chronic Problems HTN (hypertension) (Chronic) COPD (chronic obstructive pulmonary disease) (Chronic) Lung mass (Chronic) Hospital Course and Treatment Summary of Care Provided: [] This 67-year-old female with history of heavy smoking since age of 10 , a pack per day came to ER with cough which is chronic in nature, dizziness, pleuritic chest pain left-sided and in ER she was found hypotensive, hypoxic consistent with septic shock. She also had weight loss of 20 pounds since [place] last year. She had a CT scan by [facility] which showed left upper lobe mass, she was further admitted in ICU for septic shock, MOST probably due to postobstructive pneumonia and hypotension state probably related to septic shock or polypharmacy. 1. Septic shock 2/2 MAX community acquired or possibly postobstructive PNA from left upper lobe lung lesion which is concerning for malignancy: On IV Zosyn transitioned to oral Levaquin to complete 7 day course.. Cultures NTD. Cosyntropin stim test pending. Resp panel negative. Resp cx with no growth. Blood cx pending. Urine ag neg. septic shock resolved. Resume antihypertensive medication on lower dose. Acute hypoxic respiratory failure secondary to COPD exacerbation complicated with community-acquired pneumonia as well as septic shock: Patient pulse ox is 81% on room air with ambulation, 93% on 2 L of oxygen on ambulation and 95% at rest on room air 95%. Document signed for oxygen supply she needs 2 L of oxygen to keep pulse ox more than 90% on ambulation. Follow Dr. Sibley. 2. 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 Upper lobe mass was highly suspicious for lung ca with current imaging and her hx of smoking, CT findings of spiculated lung mass, lymphadenopathy, and recent weight loss. Therefore CT-guided biopsy was done chest x-ray after biopsy shows small clinically insignificant left apical pneumothorax but repeat chest x-ray after 2 hours shows no evidence of pneumothorax. CT-guided biopsy of the left upper lobe mass is positive of adenocarcinoma; non-small cell lung cancer confirmed. Patient was seen by oncologist and advised staging workup with PET/CT scan and brain MRI as an outpatient. Further treatment as per the oncologist. This was explained to the patient's daughter and the patient herself. 3. Underlying COPD with acute exacerbation - failed outpatient aerosols and prednisone. On pulmicort, duonebs. 4. Hx TIA - on Plavix, statin 5. HTN - hold antihypertensives 2/2 #1. 6. Severe protein calorie malnutrition - recent 20 lb weight loss. 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 The patient had cosyntropin test which is negative. Baseline 19 and went up 32.2 after cosyntropin test; consistent with normal response with cosyntropin. 7. Carotid stenosis - prior endarterectomy left side x2 and right x1 - loud bruit on exam. 8. Hypokalemia / Hypomagnesemia - replete both. Phos normal. 9. Normocytic anemia - stable. DVT ppx: SCDs, heparin Patient is discharged on Levaquin for 5 more days to complete a total of 7 days. Discharge medication reconciliation done. Discharge follow-up instructions completed. Total time spent, exact 32 minutes on discharge meds reconciliation, examination , review of imaging and blood test and discussion with the patient and her daughter on follow-up instructions. This note was generated with [employer] dictation software. Every effort was made to ensure accuracy, however computerized diagnostic cardiac sonographer mistakes may persist. Discharge Activity: May not drive while taking narcotic pain medications. Call your doctor if you observe: Fever of 101 or Higher, Shortness of breath, Chest pain Home Medications: Medications to take at Discharge Albuterol Aerosols [Ventolin Aerosols] 2.5 mg INHALATION Q4H PRN PRN 01/07/18 Atorvastatin Calcium [Lipitor] 40 mg PO QHS 01/07/18 Clopidogrel Bisulfate [Plavix] 75 mg PO DAILY 01/07/18 Metoprolol(XL)Succ [Toprol Xl (Beta Lashawn)] 100 mg PO DAILY 01/07/18 Triamcinolone 0.1% Cream [Kenalog] 1 applic TOPICAL TID PRN 01/07/18 Valsartan 80 mg PO DAILY 01/07/18 Budesonide Aerosol [Pulmicort Respules] 0.5 mg INHALATION BID.RT #60 ampul.neb. 01/12/18 Calcium Carbonate [Tums] 500 mg PO Q4H PRN PRN tablet 01/12/18 Famotidine [Pepcid] 20 mg PO DAILY tablet 01/12/18 Levofloxacin [Levaquin] 500 mg PO DAILY #5 tab 01/12/18 Midodrine HCl [Proamatine] 5 mg PO TID #50 tab 01/12/18 Ondansetron HCl [Zofran] 4 mg PO Q4H PRN PRN #30 tab 01/12/18 Following Prescrptions Were Given to Patient: Ondansetron HCl [Zofran] 4 mg PO Q4H PRN PRN #30 tab PRN Reason: Nausea/vomiting Budesonide Aerosol [Pulmicort Respules] 0.5 mg INHALATION BID.RT #60 ampul.neb. Levofloxacin [Levaquin] 500 mg PO DAILY #5 tab Midodrine HCl [Proamatine] 5 mg PO TID #50 tab Primary Care Physician: [facility] Doctor,Out of [NON-STAFF] - Please follow up with your Primary Care Physician in: in 2 weeks Please Follow Up With: Giuliana Rivera MD When: next week; 01/18/18 Please Follow Up With: Dc Blackwood DO When: in 2-3 weeks Meaningful Use Info Meaningful Use Diagnoses (Choose all that apply): None applicable Code Visit Inpatient E&M: 886[address] [facility]
--- NOTE | 2018-01-12 12:58 | CON.PCM_ITS ---
- Problem List (1) Cancer of upper lobe of left lung Status: Acute (2) PNA (pneumonia) Status: Acute (3) COPD (chronic obstructive pulmonary disease) Status: Chronic Consult Referring Physician: Dr Zamorano Consult Results: Lung cancer Subjective Date of Service:: 01/12/18 Chief Complaint: Septic Shock/Obstructive Pneumonia History of Present Illness: Patient is a 67-year-old female smoker since her teenage was an average 1+ pack per day who initially presented with symptoms suggestive of respiratory tract infection and a chest x-ray on January 05, 2018 at [facility] showed a left upper lobe mass. This prompted a CT scan on January 06 that confirmed a spiculated left upper lobe mass malignant appearing in addition to emphysematous changes. Soft tissue lesion overlying the right ninth rib posteriorly visualized corresponds to a chronic sebaceous cyst on the patient exam. The patient was hospitalized due to increasing dyspnea and hypotension and treated for pneumonia and a CT-guided biopsy of the left upper lobe mass confirmed an adenocarcinoma. Past Medical History: Chronic Problems HTN (hypertension) (Chronic) COPD (chronic obstructive pulmonary disease) (Chronic) Lung mass (Chronic) Past Medical/Surgical History: Past Medical History - Most Recent Inpatient Visit Past Medical History Start: 01/07/18 19: 22 Text: Status: Complete Freq: ONCE Protocol: Document 01/07/18 19:33 [facility] [place] (Rec: 01/07/18 19:39 [facility] [place] [id number]) BMI Required to complete PMH What is Patient's BMI 18.1 Past Medical History Unable History Recalled No Query Text:Pt Unable/Family Not Present Neurologic Medical History Hx Stroke/TIA Yes: cva and tia Hx Dementia/Alzheimer's No Hx Parkinson's Disease No Hx Seizures No Hx Multiple Sclerosis No Hx Migraines Yes Cardiac Medical History VTE Present on Admission No Hx of Deep Vein Thrombosis/VTE/PE No Hx Hypertension Yes Hx Chest Pain/Angina No Hx Heart Attack No Hx Cardiac Surgery/Stents/Etc. No Hx Heart Failure No Hx Pacemaker/AICD No Hx Irregular Heartbeat and/or Afib No Hx Anticoagulant Therapy Yes: pl-avix Query Text:(Coumadin, Aspirin, Plavix, Xarelto, etc.) Hx Pain in Legs when Walking/Leg Cramps No Comments hypercholesterolemia Respiratory Medical History Hx COPD Yes Hx Emphysema No Hx Smoking Yes Smoking Status Current every day smoker Years Smoking 57 Packs Smoked per Day 1 Hx Tobacco Use in last 12 months Yes Sent to [facility] Yes Hx of Pipe Smoking No Hx of Cigar Smoking No Hx Sleep Apnea No Do you snore loudly (louder than talking No or can be heard through closed doors)? Do you often feel tired/ fatigued/ Yes sleepy during daytime? Has anyone observed you stop breathing No during sleep? STOP Results Positive GI Medical History Hx Ulcer No: gerd Hx Hepatitis No Hx Cirrhosis No Hx GI Bleed No Hx Unplanned Weight Loss Yes: 20+ pounds since [place] Genitourinary Medical History Indwelling Catheter in Place on Arrival/ No Admission Hx Renal Disease No Hx Dialysis No Musculoskeletal History Hx Arthritis Yes Hx Rheumatoid Arthritis No Endocrine Medical History Hx Diabetes No Hx Thyroid Disease No Hematologic Medical History Hx of Blood Transfusion No Hx of Transfusion in last 3 Months No Ever experience any problems with No transfusion(s)? Hx of Preganancy in last 3 Months No Nurse Filling Out Transfusion & SGESSEL Questions: Date: 01/07/18 Time: 19:38 Psycho/Social Medical History Hx Depression No Hx Anxiety No Hx Behavior Disorder No Hx Alcohol Use Yes: wine a couple of glasses daily Hx Substance Use No Other Medical History Hx Blood Disorders No Hx Anemia No Hx Cancer No Hx Drug Resistant Organism No Wound/Pressure Injury Present on Arrival No: to be assessed per primary /Admission rn Query Text:If yes, chart assessment in Shift/Clinical Findings Central Line/PICC/VAD Present on Arrival Yes /Admission Antibiotics within last 7 days? Yes Name of Antibiotic (Include dose/# days zithromax taken if known) Last day ATB taken 01/07/18 Risk for Readmission Number of Risk Factors 4 At Risk for Readmission Patient is At Risk For Readmission Patient is eligible for Call Back Y - Social History Smoking Status: Current every day smoker Allergies/Adverse Reactions: Allergy/AdvReac Type Severity Reaction Status Date / Time JAZMINE Inhibitors Allergy cough Verified 01/07/18 18:58 erythromycin base Allergy Hives Verified 01/07/18 18:58 vitamin A [From Retinol] Allergy Itching Verified 01/07/18 16:07 Home Medications Medication Instructions Recorded Albuterol Aerosols [Ventolin 2.5 mg INHALATION Q4H PRN PRN 01/07/18 Aerosols] Atorvastatin Calcium [Lipitor] 40 mg PO QHS 01/07/18 Clopidogrel Bisulfate [Plavix] 75 mg PO DAILY 01/07/18 Metoprolol(XL)Succ [Toprol Xl 100 mg PO DAILY 01/07/18 (Beta Lashawn)] Triamcinolone 0.1% Cream [Kenalog] 1 applic TOPICAL TID PRN 01/07/18 Valsartan 80 mg PO DAILY 01/07/18 Budesonide Aerosol [Pulmicort 0.5 mg INHALATION BID.RT #60 01/12/18 Respules] ampul.neb. Calcium Carbonate [Tums] 500 mg PO Q4H PRN PRN tablet 01/12/18 Famotidine [Pepcid] 20 mg PO DAILY tablet 01/12/18 Levofloxacin [Levaquin] 500 mg PO DAILY #5 tab 01/12/18 Midodrine HCl [Proamatine] 5 mg PO TID #50 tab 01/12/18 Review of Systems Constitutional:: Reports: Weakness, Fatigue. Denies: Fever, Sweats, Weight loss , Appetite change, Chills Cardiovascular:: Reports: Dyspnea on exertion, Shortness of breath. Denies: Chest pain, Palpitations, Orthopnea, PND Respiratory: Reports: Cough, Shortness of Breath, Shortness of breath upon exertion, Sputum production, Wheezing. Denies: Hemoptysis Gastrointestinal:: Denies: Abdominal pain, Nausea, Vomiting, Diarrhea, Constipation, Hematochezia Genitourinary: Denies: Dysuria, Hematuria, 15, Flank pain Musculoskeletal:: Denies: Back pain, Myalgia, Arthralgia Skin: Denies: Rash, Skin Changes, Wounds Neurological:: Denies: Headache, Dizziness, Visual changes, Tinnitus, Hearing loss Psychiatric: Denies: Anxiety, Depression, Homicidal Ideations, Suicidal Ideations Vital Signs Height 5 ft Weight: 45.6 kg Weight in Pounds 100.5 lbs Pulse Ox [AMBULATION with 93 Oxygen] Pulse Ox [AMBULATING on Room 81 Air] Pulse Ox [At REST on Room Air] 95 Pulse Ox 95 Temperature 97.5 F Pulse Rate [Standing] 93 Pulse Rate [Sitting] 94 Pulse Rate [Lying] 92 Pulse Rate 97 Respiratory Rate 20 Blood Pressure [Standing] 98/67 Blood Pressure [Sitting] 97/68 Blood Pressure [Lying] 93/60 Blood Pressure [BP] 85/67 Blood Pressure 136/75 Blood Pressure Position [BP] Semi-Fowlers Blood Pressure Position Semi-Fowlers - Physical Exam General: Alert, Oriented x3, No apparent distress, - - Thin built ECOG 2 HEENT: PERRLA, EOMI, Normocephalic, - - Ecchymoses around the right eye ( following recent accidental fall) Oropharynx:: Dry mucosa Neck:: Supple, Trachea midline. Negative for: JVD, bilateral Cardiac:: Regular rate, Regular rhythm, Normal S1, Normal S2. Negative for: Murmur Lungs: Clear to auscultation, Diminished, Excusion symmetrical. Negative for: Rhonchi, Wheezes Abdomen:: Soft, Non-tender, Non-distended. Negative for: Hepatosplenomegaly Extremities:: Negative for: Cyanosis, Edema Neurological: Neuro grossly intact Skin:: Negative for: Lesions, Rash, Petechiae, Ecchymosis Psychiatric:: Appropriate affect, Euthymic Lymphatics:: Negative for: Cervical lymphadenopathy, Supraclavicular lymphadenopathy Laboratory Data: Microbiology 01/08/18 10:20 Gram Stain - Final Sputum, Expectorated/Coughed Respiratory Culture - Final 01/07/18 18:05 Blood Culture - Preliminary Blood Culture (Wb) #2 - Anticubital Right No growth in 48 hours. 01/07/18 18:33 Blood Culture - Preliminary Blood Culture (Wb) - Arm Left No growth in 48 hours. 01/07/18 20:45 Urine Culture - Final Urine Catheter - Mello Culture exhibits no growth. 01/09/18 18:15 C. difficile DNA Amplification - Final Stool Diagnostic Data: Diagnostic Data I personally reviewed the patient's CT images of January 10, 2018 and concur with the reported left upper lobe mass Biopsy CT 01/10/18 06:43 IMPRESSION: 1. CT directed core needle biopsy of the left upper lobe mass using CT image guidance with image documentation as described. Pathology results are pending. 2. Conscious Sedation protocol utilized with independent monitoring. Electronically Signed: Golden Powell MD at 12:38 EDT Tel [phone], Service support , Chest X-Ray 01/10/18 13:45 IMPRESSION: No evidence of pneumothorax on the 2 hour post left lung biopsy radiograph. Electronically Signed: Golden Powell MD at 15:27 EDT Tel [phone], Service support , Assessment and Plan 67-year-old smoker with COPD and a newly diagnosed left upper lobe non-small cell lung cancer (adenocarcinoma). Patient presented with respiratory tract infection symptoms and is improving on antibiotics. Plan: 1. Staging of cancer with a PET CT and brain MRI. This can be done as outpatient. 2. We will follow-up after the staging with treatment recommendations. Patient was seen with her daughter impression and plan discussed. Medications: Prescriptions This Visit Medication Instructions Recorded Albuterol Aerosols [Ventolin 2.5 mg INHALATION Q4H PRN PRN 01/07/18 Aerosols] Atorvastatin Calcium [Lipitor] 40 mg PO QHS 01/07/18 Azithromycin [Azithromycin] 250 mg PO DAILY 01/07/18 Clopidogrel Bisulfate [Plavix] 75 mg PO DAILY 01/07/18 Metoprolol(XL)Succ [Toprol Xl 100 mg PO DAILY 01/07/18 (Beta Lashawn)] Prednisone [Prednisone] See Taper PO UD 01/07/18 Triamcinolone 0.1% Cream [Kenalog] 1 applic TOPICAL TID PRN 01/07/18 Valsartan 80 mg PO DAILY 01/07/18 Medications Added to Medication List This Visit Category Date Time Status Famotidine [Pepcid] Med 01/13/18 10:00 Active 20 mg PO DAILY Melatonin Med 01/12/18 22:00 Active 10 mg PO QHS Primary Care Provider: Estela Ferguson Referring Provider:
--- NOTE | 2018-01-12 13:00 | CASEMGMT ---
Per Melody PATEL, pt qualifies for home oxygen at this time. This RN CM to room to speak with pt regarding home oxygen and preference on DME company at this time. Pt A/O X4 at this time and daughter is at bedside. Pt is not happy with having to go home on oxygen at this time but does agree and states no preference. Pt states recently started on nebulizer at home as well and states that 'my got it at [facility].' Referral to [place] [facility] [place], voices understanding. Ref[place] [facility] [place]. This RN GINNA verified with Radhika, change director, that she did make f/u appointments for pt to PCP, Pulmonology and oncology. Pt/daughter updated on all at this time and advised that [facility] [place] discharge, voice understanding. Pt/daughter voice no further concerns/needs at this time. Ran PATEL CM
== END 2018-01-12 15:24 | disposition home or self-care (01) | DRG 871 ==
LOC: ED 18:25 → ICU 18:47 → PCU 01-12 14:18 → ICU 01-12 16:29 → PCU 01-12 16:30
PROVIDERS: Internal Medicine; Internal Medicine Critical Care Medicine; Physician Assistant; Admitting Provider Internal Medicine; Emergency Provider Emergency Medicine; Family Provider Physician Assistant; PCP Physician Assistant; Visit Provider Internal Medicine
DX: A41.9 Sepsis, unspecified organism (principal); E43 Unspecified severe protein-calorie malnutrition; J96.01 Acute respiratory failure with hypoxia; R65.21 Severe sepsis with septic shock; J18.9 Pneumonia, unspecified organism; C34.12 Malignant neoplasm of upper lobe, left bronchus or lung; D64.9 Anemia, unspecified; J44.0 Chronic obstructive pulmonary disease with (acute) lower respiratory infection; Z68.1 Body mass index [BMI] 19.9 or less, adult; J44.1 Chronic obstructive pulmonary disease with (acute) exacerbation; J95.811 Postprocedural pneumothorax; E83.42 Hypomagnesemia; F17.210 Nicotine dependence, cigarettes, uncomplicated; Z86.73 Personal history of transient ischemic attack (TIA), and cerebral infarction without residual deficits; I10 Essential (primary) hypertension; I65.29 Occlusion and stenosis of unspecified carotid artery; E87.6 Hypokalemia
CPT/HCPCS: 36600; 71045; 71046; 77012; 80048; 80076; 81001; 82533; 82803; 83605; 83735; 84100; 84484; 85025; 85027; 85610; 85730; 87040; 87070; 87086; 87205; 87449; 87493; 87633; 87641; 88172; 88305; 88312; 88341; 88342; 93005; 94640; 94667; 94668; 97162; 97166; 97802; 99156; 99157; 99285; 99406; J7030; J7040; J7050; A4216; C1751; J0834; J2405; J7799

== ENCOUNTER → 2018-01-24 07:18 | Outpatient (CLI) | payer MEDICARE, SELFPAY ==
--- NOTE | 2018-01-24 09:31 | MRI_ITS ---
STUDY: MRI BRAIN WITH AND WITHOUT CONTRAST REASON FOR EXAM: Female, 67 years old. Restaging lung carcinoma. TECHNIQUE: Standardized multiplanar fat and water weighted pulse sequences were obtained. 4.5 ml of Gadavist contrast material was administered intravenously for the contrast portion of the examination. COMPARISON: 01/08/2009. FINDINGS: Enhancing mass involving the medial aspect of the left biventral lobule, the left inferior cerebellar tonsil, the left inferior cerebellar peduncle, the left dorsal surface of the lower third of the medulla and a small medial portion of the adjacent right inferior cerebellar tonsil. Few subcortical white matter T2 FLAIR hyperintensity foci and periventricular white matter hyperintensity foci are most likely secondary to microvascular disease. The ventricles and cisterns are within normal limits. Normal bilateral basal ganglia. Normal thalami. There is no extra-axial fluid accumulation. Normal flow voids within the major intracranial circulation suggesting patency by spin echo criteria. Normal venous enhancement. No other enhancing mass lesions. Normal sella turcica, pituitary gland, infundibular stalk, optic chiasm and hypothalamus. Normal tectal plate and pineal gland. Faint T2 FLAIR hyperintensity across the central pontine tegmentum are secondary to microvascular disease. They have increased since 01/08/2009. No other suspicious mass lesions in the cerebellar hemispheres. Normal basal cisterns. Normal bilateral temporal bones. Normal bilateral internal auditory canals. No demonstrated orbital abnormality, within the constraints of a routine brain study. Normal visualized paranasal sinuses. Normal calvarium and skull base. Normal visualized soft tissue structures. Normal visualized upper cervical spine. MRI/Brain W/WO Contrast IMPRESSION: 1. 2.6 x 2.1 x 2.1 cm solitary enhancing brain metastatic mass involving the medial aspect of the left biventral lobule, the left inferior cerebellar tonsil, the left inferior cerebellar peduncle, the adjacent left dorsal aspect of the lower third of the medulla and the small medial portion of the adjacent right inferior cerebellar tonsil. 2. Mild increased chronic white matter ischemic changes across the central pontine tegmentum. 3. Chronic subcortical and periventricular white matter ischemic changes are unchanged. Electronically Signed: Hero Mckeon MD at 12:07 EDT , Service support ,
== END ==
PROVIDERS: Family Provider Physician Assistant; PCP Physician Assistant; Visit Provider Internal Medicine Hematology & Oncology
DX: C34.12 Malignant neoplasm of upper lobe, left bronchus or lung (principal); R91.8 Other nonspecific abnormal finding of lung field
CPT/HCPCS: 70553; 78815; A9552; A9581; A4216

== ENCOUNTER 2018-01-25 10:30 | Outpatient (RCR) | payer MEDICARE, SELFPAY ==
--- NOTE | 2018-01-24 08:00 | PET_ITS ---
EXAMINATION: FDG PET CT INDICATIONS: A 67-year-old female with history of carcinoma of the lung presenting for initial staging examination. COMPARISON EXAMINATION: CT of the chest report dated 01/10/18. INDEX LESION SIZE SUV INTERPRETATION Mediastinum, aorticopulmonary window 19.3 mm largest (frame 192) 18.5 (max) Fulfills quantitative criteria for viable neoplasm Bilateral supraclavicular regions, left anterior cervical triangle, left upper posterior chest wall 14.3 mm largest (frame 219) 6.9 (max) Fulfills quantitative criteria for viable neoplasm Left scapula, second cervical vertebra 9.4 (max) Fulfills quantitative criteria for viable neoplasm Left cerebellar hemisphere 19.4 mm (frame 263) Lsnuxj-np-eevyzxighgynh hemisphere ratio 1.8:1 Fulfills quantitative criteria for viable neoplasm NON-INDEX LESION SIZE SUV INTERPRETATION Lower pelvis contiguous to soft tissue mass 1.8 Quantitative criteria for viable neoplasm are not fulfilled TECHNIQUE: Following the intravenous administration of 13.22 mCi of F-18 deoxyglucose via the right hand, multiplanar image acquisitions of the neck, chest, abdomen and pelvis to level of mid thigh, obtained at one hour post radiopharmaceutical administration contemporaneously interpreted with the current CT of the neck, chest, abdomen and pelvis to level of mid thigh, dated 01/24/[address] of the chest report dated 01/10/18 reveal: SERUM GLUCOSE LEVEL: 67 mg/dl. HEIGHT: 60 inches. WEIGHT: 90 lbs. FINDINGS: 1. Increased glucose metabolism is defined in the left upper hemithorax pulmonary parenchyma, left upper lobe and left mid anteromedial lung field. The calculated maximum standard uptake value is 20.3. The maximal axial diameter of the corresponding parenchymal density-mass on review of CT of the thorax dated 01/24/18 is 44.9 mm (transverse) x 37.3 mm (AP). 2. Enhanced glucose metabolism is manifest in the carinal level mediastinum and aorticopulmonary window generating a calculated maximum standard uptake value of 15.5. The maximal axial diameter of the largest individual metabolic abnormality is approximately 19.3 mm (transverse). 3. Facilitated glucose metabolism is visualized in the bilateral supraclavicular regions, the left anterior cervical triangle and left upper posterior chest wall adjacent to the paravertebral musculature localized to the subcutaneous fat. The calculated maximum standard uptake value is 6.9. The maximal axial diameter of the largest metabolic, morphologic abnormality on review of CT of the thorax dated 01/24/18 is 14.3 mm (AP). 4. There is an increase in glucose metabolism manifest in the left scapula and region of the anterior tubercle of the second cervical vertebra to the right of the midline. The calculated maximum standard uptake value is 9.4. 5. There is an asymmetric increased glucose concentration noted in the posteromedial aspect of the left cerebellar hemisphere generating a calculated upsgtq-ei-bsmvibbjepjab cerebellar hemisphere ratio of 1.8:1. The maximal axial diameter of the corresponding metabolic abnormality is approximately 19.4 mm (transverse). 6. Normal physiologic distribution of the radiopharmaceutical is apparent in the hepatic (2.2) and splenic parenchyma, both renal units, bladder and visualized intestinal tract. There is uniform distribution of the radiopharmaceutical concentration compared on the cerebellar hemispheres and cerebral cortex. The remaining cerebral cortical and subcortical structures are scintigraphically unremarkable. Diffuse intestinal tract activity is noted throughout all four quadrants of the abdominal-pelvic retroperitoneum, mesentery consistent with normal physiologic distribution of the radiopharmaceutical. Mild increased glucose concentration is observed in the lower pelvis corresponding to soft tissue mass formation generating a calculated maximum standard uptake value of 1.8. Quantitative criteria for viable neoplasm are not fulfilled. Pertinent CT findings are as follows. CHEST: Emphysematous change is noted in the bilateral upper lung zones. A subcentimeter parenchymal density evident in the right lower posterolateral lung field is non-glucose avid. Atherosclerotic calcification is defined in the thoracic aorta without evidence of dilatation, aneurysm formation. Coronary arterial calcification is observed. Bilateral axillary soft tissue densities with fatty hilus formation are non-glucose avid. ABDOMEN AND PELVIS: Atherosclerotic calcification is defined in the abdominal aorta without evidence of dilatation, aneurysm formation. Abdominal-pelvic arterial calcification is observed. Right-left inguinal soft tissue densities are ametabolic. SKELETAL: Degenerative changes defined in the cervical, thoracic and lumbar spine demonstrate no evidence for glucose hypermetabolism. PET/PET/CT Tumor Base -Thigh Init IMPRESSION: 1. ABNORMAL EXAMINATION INDICATIVE OF MALIGNANT VIABLE NEOPLASM. 2. Increased glucose concentration demonstrated in the left hemithorax pulmonary parenchyma, left upper lobe in two separate locations fulfills quantitative criteria for viable neoplasm. 3. Enhance glucose metabolism visualized in the carinal level mediastinum in the aorticopulmonary window fulfills quantitative criteria for neoplasm. (Gris et al, Journal of Clinical Oncology 16:2142, 1997). 4. Bilateral neoplastic infiltration is demonstrated in the right-left supraventricular regions, left anterior cervical triangle and left upper posterior chest wall. 5. Osseous metastasis appears evident in the left scapula and second cervical vertebra. (Be et al, Clinical Nuclear Medicine 29:161, 2004). 6. The increased radiopharmaceutical concentration defined in the left cerebellar hemisphere fulfills quantitative criteria for viable neoplasm. Electronic Signature Thaddeus Colindres D.O. Electronically Signed: Thaddeus Colindres DO at 23:45 EDT Tel , Service support ,
[2018-01-24 15:04] VITALS: BP 106/68; PULSE 80; RESP 17; TEMP 36.8; O2SAT 97; BMI 17.4
--- NOTE | 2018-01-24 16:20 | ONC.OV1 ---
Subjective - Date of Service Date of Service:: 01/24/18 - Chief Complaint MRI results - History of Present Illness Ms. Eleonora Garza is a pleasant 67 year old woman who reportedly smoked since her teens, was an average 1+ pack per day who initially presented with symptoms suggestive of respiratory tract infection and a chest x-ray on January 05, 2018 at [facility] revealed a left upper lobe mass. This prompted a CT scan on January 06 that confirmed a spiculated left upper lobe mass, malignant appearing in addition to emphysematous changes. Soft tissue lesion overlying the right ninth rib posteriorly visualized corresponds to a chronic sebaceous cyst on the patient exam. The patient was hospitalized due to increasing dyspnea and hypotension and treated for pneumonia. While in patient, she underwent a CT-guided biopsy of the left upper lobe mass which confirmed an adenocarcinoma. - Interval History The patient is presenting to clinic accompanied by spouse and daughter, Eze to review results of brain MRI obtained earlier today. C/o imbalance resulting in several near falls. Patient in wheelchair for visit. Also c/o intermittent nausea, early satiety and continued weight loss. Denies headaches, CP, vomiting and numbness/tingling of extremities. - Past Medical/Social History Past Medical History Cancer: Lung cancer Social History Smoking Status Former smoker Review of Systems Constitutional:: Reports: Weakness, Weight loss, Appetite change. Denies: Fever, Sweats, Chills Cardiovascular:: Denies: Chest pain, Palpitations, Orthopnea, PND Respiratory: Reports: Cough, Shortness of Breath. Denies: Hemoptysis, Wheezing Gastrointestinal:: Reports: Nausea. Denies: Abdominal pain, Vomiting, Diarrhea, Constipation, Hematochezia Genitourinary: Denies: Dysuria, Hematuria, 15, Flank pain Musculoskeletal:: Denies: Back pain, Myalgia, Arthralgia Skin: Denies: Rash, Skin Changes, Wounds Neurological:: Reports: Muscle weakness, Frequent falls - see HPI. Denies: Headache, Dizziness, Numbness, Tingling, Visual changes, Tinnitus, Hearing loss Psychiatric: Denies: Anxiety, Depression, Homicidal Ideations, Suicidal Ideations Vital Signs Height 5 ft 0.5 in Weight: 90 lb 12.8 oz Weight in Pounds 90.8 lbs Pulse Ox 97 Temperature 98.2 F Pulse Rate 80 Respiratory Rate 17 Blood Pressure 106/68 Blood Pressure Position Sitting - Physical Exam General: Alert, Oriented x3, No apparent distress HEENT: Atraumatic, Normocephalic Neurological: Neuro grossly intact Psychiatric:: Appropriate affect, Euthymic Diagnostic Data: MRI/Brain W/WO Contrast IMPRESSION: 1. 2.6 x 2.1 x 2.1 cm solitary enhancing brain metastatic mass involving the medial aspect of the left biventral lobule, the left inferior cerebellar tonsil, the left inferior cerebellar peduncle, the adjacent left dorsal aspect of the lower third of the medulla and the small medial portion of the adjacent right inferior cerebellar tonsil. 2. Mild increased chronic white matter ischemic changes across the central pontine tegmentum. 3. Chronic subcortical and periventricular white matter ischemic changes are unchanged. Electronically Signed: Hero Mckeon MD at 12:07 EDT , Service support , Assessment and Plan 67-year-old smoker with COPD and a newly diagnosed left upper lobe non-small cell lung cancer (adenocarcinoma). PET/CT and brain MRI were ordered to complete staging. MRI brain obtained 01/24/18 reveals 3 cm cerebellar mass. Plan: 1. Case discussed with Dr. Nguyen. Edema surrounding lesion is minimal thus start dexamethasone 4 mg PO daily with PPI prophylaxis. Zofran refilled. 2. Patient will be referred to radiation oncology and evaluated by Dr. Nguyen tomorrow morning. 3. Tentatively, keep OV with Dr. Rivera on 01/31/18 4. Engaged in lengthy discussion about nutrition and performance status. Given early satiety and continued weight loss, advised diet high in protein, Greater than 50% of this 45 minute was spent in counseling. Patient was seen with her daughter and spouse. All were in agreement about the aforementioned plan. Emotional support provided. Joanie Thakkar, MSN, PUBLIC WORKS MANAGER, AOCNP Medications: Prescriptions This Visit Medication Instructions Recorded Dexamethasone 4 mg PO DAILY #30 tab 01/24/18 Ondansetron HCl [Zofran] 4 mg PO Q8H PRN PRN 15 Days #30 tab 01/24/18 Primary Care Provider: Estela Ferguson Referring Provider: - Problem List (1) Cancer of upper lobe of left lung Status: Acute (2) Metastatic adenocarcinoma to brain Status: Acute (3) Cachexia Status: Acute
--- NOTE | 2018-01-24 16:28 | WMO.OV_ITS ---
Subjective - Date of Service Date of Service:: 01/24/18 - Chief Complaint MRI results - History of Present Illness Ms. Eleonora Garza is a pleasant 67 year old woman who reportedly smoked since her teens, was an average 1+ pack per day who initially presented with symptoms suggestive of respiratory tract infection and a chest x-ray on December at [facility] revealed a left upper lobe mass. This prompted a CT scan on January 06 that confirmed a spiculated left upper lobe mass, malignant appearing in addition to emphysematous changes. Soft tissue lesion overlying the right ninth rib posteriorly visualized corresponds to a chronic sebaceous cyst on the patient exam. The patient was hospitalized due to increasing dyspnea and hypotension and treated for pneumonia. While in patient, she underwent a CT-guided biopsy of the left upper lobe mass which confirmed an adenocarcinoma. - Interval History The patient is presenting to clinic accompanied by spouse and daughter, Eze to review results of brain MRI obtained earlier today. C/o imbalance resulting in several near falls. Patient in wheelchair for visit. Also c/o intermittent nausea, early satiety and continued weight loss. Denies headaches, CP, vomiting and numbness/tingling of extremities. - Past Medical/Social History Past Medical History Cancer: Lung cancer Social History Smoking Status Former smoker Review of Systems Constitutional:: Reports: Weakness, Weight loss, Appetite change. Denies: Fever , Sweats, Chills Cardiovascular:: Denies: Chest pain, Palpitations, Orthopnea, PND Respiratory: Reports: Cough, Shortness of Breath. Denies: Hemoptysis, Wheezing Gastrointestinal:: Reports: Nausea. Denies: Abdominal pain, Vomiting, Diarrhea , Constipation, Hematochezia Genitourinary: Denies: Dysuria, Hematuria, 15, Flank pain Musculoskeletal:: Denies: Back pain, Myalgia, Arthralgia Skin: Denies: Rash, Skin Changes, Wounds Neurological:: Reports: Muscle weakness, Frequent falls - see HPI. Denies: Headache, Dizziness, Numbness, Tingling, Visual changes, Tinnitus, Hearing loss Psychiatric: Denies: Anxiety, Depression, Homicidal Ideations, Suicidal Ideations Vital Signs Height 5 ft 0.5 in Weight: 90 lb 12.8 oz Weight in Pounds 90.8 lbs Pulse Ox 97 Temperature 98.2 F Pulse Rate 80 Respiratory Rate 17 Blood Pressure 106/68 Blood Pressure Position Sitting - Physical Exam General: Alert, Oriented x3, No apparent distress HEENT: Atraumatic, Normocephalic Neurological: Neuro grossly intact Psychiatric:: Appropriate affect, Euthymic Diagnostic Data: MRI/Brain W/WO Contrast IMPRESSION: 1. 2.6 x 2.1 x 2.1 cm solitary enhancing brain metastatic mass involving the medial aspect of the left biventral lobule, the left inferior cerebellar tonsil, the left inferior cerebellar peduncle, the adjacent left dorsal aspect of the lower third of the medulla and the small medial portion of the adjacent right inferior cerebellar tonsil. 2. Mild increased chronic white matter ischemic changes across the central pontine tegmentum. 3. Chronic subcortical and periventricular white matter ischemic changes are unchanged. Electronically Signed: Hero Mckeon MD at 12:07 EDT , Service support , Assessment and Plan 67-year-old smoker with COPD and a newly diagnosed left upper lobe non-small cell lung cancer (adenocarcinoma). PET/CT and brain MRI were ordered to complete staging. MRI brain obtained 01/24/18 reveals 3 cm cerebellar mass. Plan: 1. Case discussed with Dr. Nguyen. Edema surrounding lesion is minimal thus start dexamethasone 4 mg PO daily with PPI prophylaxis. Zofran refilled. 2. Patient will be referred to radiation oncology and evaluated by Dr. Nguyen tomorrow morning. 3. Tentatively, keep OV with Dr. Rivera on 01/31/18 4. Engaged in lengthy discussion about nutrition and performance status. Given early satiety and continued weight loss, advised diet high in protein, Greater than 50% of this 45 minute was spent in counseling. Patient was seen with her daughter and spouse. All were in agreement about the aforementioned plan. Emotional support provided. Joanie Thakkar, MSN, IT TECHNICIAN, AOCNP Medications: Prescriptions This Visit Medication Instructions Recorded Dexamethasone 4 mg PO DAILY #30 tab 01/24/18 Ondansetron HCl [Zofran] 4 mg PO Q8H PRN PRN 15 Days #30 tab 01/24/18 Primary Care Provider: Estela Ferguson Referring Provider: - Problem List (1) Cancer of upper lobe of left lung Status: Acute (2) Metastatic adenocarcinoma to brain Status: Acute (3) Cachexia Status: Acute
[2018-01-25 10:34] VITALS: BP 54/46; PULSE 72; RESP 14; TEMP 36.8; O2SAT 100; BMI 17.6
--- NOTE | 2018-01-25 13:46 | CON.PCM_ITS ---
Date of Service: 01/25/18 Referring Provider: Dr. Rivera Diagnosis: Eleonora Garza is a 67-year-old female diagnosed with stage IV non- small cell lung cancer (adenocarcinoma, no molecular studies completed) of the left upper lobe with evidence for mediastinal lymph node involvement, left scapula, and a solitary 2.6 cm enhancing lesion consistent with brain metastasis involving the left cerebellum and extending onto the medulla. History of Present Illness: In early December the patient was evaluated in outside hospital for suspected respiratory infection and found to have a mass on chest x-ray. 01/06/2018: CT chest was performed and demonstrated a 3.9 x 2.6 x 4.1 cm spiculated right upper lobe mass corresponding to x-ray findings. There are emphysematous changes predominantly in upper lobes there is a left hilar lymph node measuring 0.8 cm and a right parabronchial lymph node measuring 0.8 cm, soft tissue lesion is present posterior to the ninth rib which likely represents sebaceous cyst, there is evidence for heavy atherosclerotic narrowing of the great vessels off the aortic arch and the visualized upper abdomen. There is no evidence for metastatic disease noted. 01/07/2018: Chest x-ray was completed which demonstrated evidence for a 5.2 x 4.5 cm mass in the left upper lobe, stable well-circumscribed nodular density in the right liver lobe measuring 4.1 mm, hyperinflation of the lungs with emphysematous changes. 01/10/2018: CT-guided biopsy of the left upper lobe lung lesion was performed and pathology was consistent with non-small cell carcinoma consistent with lung primary favoring adenocarcinoma. 01/24/2018: Brain MRI was performed which demonstrated evidence for a 2.6 x 2.1 x 2.1 cm solitary enhancing lesion involving the medial aspect of the left by ventral lobule, the left inferior cerebral tonsil, the left inferior cerebellar peduncle, the adjacent left dorsal aspect of the lower third at the medulla, and a small medial portion of the adjacent right inferior cerebellar tonsil. There is mild increased chronic white matter ischemic change noted across to central pontine tegmentum, chronic subcortical and periventricular white matter ischemic changes are unchanged. 12/27/2017: PET scan was completed and not yet reviewed by radiology, but upon my review there is disease in the left upper lobe of the lung, multifocal mediastinal lymph nodes, and left scapula. Radiation Treatment History: Patient denies any history of previous radiation therapy, collagen vascular disease, or pacemaker. She denies having any difficulty to positioning for radiation therapy including claustrophobia. Interval History: Patient presents for initial consultation. She reports that over the last couple of months she has noticed a steady decline in her appetite and weight has lost about 20 pounds bringing her current weight to 90 pounds. She believes this is because of a lack of appetite and also intermittent nausea, she has not yet using supplements for increasing her nutrition. She has also noted increasing fatigue during this timeframe. She noted very small amount of pain in the left shoulder sometime within the last week or so but denies any pain today. She denies any other sites of pain. Also during the last several weeks she has noted increasing imbalance especially when walking having to hold onto things to prevent from falling. She denies any recent falls. She denies any difficulty with coordination otherwise including picking stuff up or eating. She describes having some nausea with very little vomiting over the last few weeks. She believes that the nausea has actually improved over the last few days. She began taking Decadron this morning. She denies having any headaches, focal weakness/numbness, diplopia or other vision changes, changes to hearing, seizures. She also denies changes in cognition or memory other than very minor changes over the last year or so. She has chronic shortness of breath with exertion and requires 2 L of oxygen continuously at home. She does get dyspnea with exertion but denies cough or hemoptysis. She lives with her and reports being able to complete her activities of daily living and occasionally requires assistance. She denies any other problems or concerns at this time. Family History (Last Reviewed 01/24/18 @ 15:00 by Eleonora Evans) Father Alzheimers disease Mother Lung cancer Medical History (Last Reviewed 01/25/18 @ 10:36 by Tere Garcia RN) Arthritis (Acute) Bilateral carotid bruits (Acute) CAROTID ARTERY SURGERY (Acute) (Acute) COPD (chronic obstructive pulmonary disease) (Acute) Enlarged thyroid (Acute) GERD (gastroesophageal reflux disease) (Acute) Hyperlipidemia (Acute) Hyponatremia (Acute) PVD (peripheral vascular disease) (Acute) STENT IN ARTERY IN GROIN (Acute) Thrombocytosis (Acute) Thyroid nodule (Acute) Vitamin D deficiency (Acute) Hypertension (Chronic) Surgical History (Last Updated 01/25/18 @ 10:36 by Tere Garcia RN) History of delivery (Acute) X 2 1973 AND 1975 Social History [id number] smoking history, just recently quit. Denies any alcohol or drug use. Lives at home with her . Home Medications Medication Instructions Recorded Albuterol Aerosols [Ventolin 2.5 mg INHALATION Q4H PRN PRN 01/07/18 Aerosols] Atorvastatin Calcium [Lipitor] 40 mg PO QHS 01/07/18 Clopidogrel Bisulfate [Plavix] 75 mg PO DAILY 01/07/18 Metoprolol(XL)Succ [Toprol Xl 100 mg PO DAILY 01/07/18 (Beta Lashawn)] Calcium Carbonate [Tums] 500 mg PO Q4H PRN PRN tablet 01/12/18 Midodrine HCl [Proamatine] 5 mg PO TID #50 tab 01/12/18 Ondansetron HCl [Zofran] 4 mg PO Q4H PRN PRN #30 tab 01/12/18 levoFLOXacin tablet [Levaquin] 500 mg PO DAILY #5 tab 01/12/18 Dexamethasone 4 mg PO DAILY #30 tab 01/24/18 Omeprazole [Prilosec] 20 mg PO DAILY #30 cap 01/25/18 Allergies JAZMINE Inhibitors Adverse Reaction (Severe, Verified 01/25/18 10:31) cough vitamin A [From Retinol] Adverse Reaction (Severe, Verified 01/25/18 10:31) Itching erythromycin base Adverse Reaction (Intermediate, Verified 01/25/18 10:31) [facility] Health Maintenance Do you regularly see your Yes primary care physician? Have you ever had a No colonoscopy? I have reviewed the medical, surgical, and other pertinent history in details and have updated medication and allergy information in the electronic medical record. Review of Systems: A 12-point review of systems was completed and was negative except for what is noted in the HPI/Interval History and by the nurse. Height/Weight/BMI: Height: 5 ft Weight: 41.095 kg BMI: Vital Signs 3 Temperature 98.3 F 01/25/18 10:34 Temperature Source Oral 01/25/18 10:34 Pulse Rate 72 01/25/18 10:34 Respiratory Rate 14 01/25/18 10:34 Blood Pressure 54/46 L 01/25/18 10:34 Blood Pressure Mean 48 01/25/18 10:34 Blood Pressure Source Monitor 01/25/18 10:34 Blood Pressure Position Sitting 01/25/18 10:34 Blood Pressure Location Right Arm 01/25/18 10:34 Pulse Ox 100 01/25/18 10:34 Oxygen Delivery Method Room Air 01/25/18 10:34 Physical Exam: ECO KARNOFSKY SCORE: 60% CONSTITUTIONAL: Well-developed, very thin and cachectic appearing female. In no apparent distress. HEENT: Mucous membranes moist. No evidence of thrush or lesions within the visualized oropharynx or oral cavity. No trismus. Pupils are equal, round, and reactive to light and accommodation. Extraocular movements are intact. Sclerae are anicteric. NECK: Supple,with no thyromegaly, and non-tender. Trachea midline. No cervical or supraclavicular adenopathy noted. CARDIAC: Regular rate and rhythm. Normal S1, S2. No murmurs, rubs, or gallops. PULMONARY/CHEST: Lungs are clear to auscultation and percussion bilaterally. No wheezes, rhonchi, or crackles noted. No increased work of breathing. ABDOMINAL: Abdomen soft, non-tender, non-distended. No hepatomegaly. Normoactive bowel sounds in all four quadrants. No guarding, rebound. BACK: Straight and aligned. No CVA tenderness. Axial skeleton non-tender to percussion. Mild tenderness with palpation of the left scapula. EXTREMITIES: Full range of motion in all four extremities, with normal strength equally and symmetrically. No evidence of edema. No clubbing. NEUROLOGICAL EXAM: Alert and oriented x 3. Cranial nerves II through XII are grossly intact. Speech is fluent. There is no upper or lower extremity sensory deficit or motor deficit. Muscle strength is 5/5 in all muscle groups. Gait and posture are steady. No dysmetria noted, some slowness with finger movements. Imaging: As per HPI Laboratory Data: Laboratory Tests 01/10/18 01/10/18 04:50 04:50 WBC 9.5 Hgb 9.8 L Plt Count 453 H Sodium 136 BUN 5 L Creatinine 0.61 Calcium 8.3 L Assessment/Plan: Eleonora Garza is a 67-year-old female diagnosed with stage IV non-small cell lung cancer (adenocarcinoma, no molecular studies completed) of the left upper lobe with evidence for mediastinal lymph node involvement, left scapula, and a solitary 2.6 cm enhancing lesion consistent with brain metastasis involving the left cerebellum and extending onto the medulla. Clinically the patient has been declining over the last 1-2 months performance status is probably around 60%. Also she has symptoms of imbalance and occasional nausea which could be secondary to the brain lesion. The description of left shoulder pain is not consistent with the metastatic lesion and on exam today there is no reproducible pain in the left shoulder or scapula. I did detailed discussion with the patient regarding the diagnosis of stage IV lung cancer and reviewed the imaging studies which show a primary tumor within the left upper lobe, several involved mediastinal lymph nodes, left scapular lesion, and a solitary brain lesion in the cerebellum extending onto the medulla. I discussed that the mainstay for metastatic lung cancer systemic therapy but that prior to initiation of systemic therapy I would recommend using radiation therapy to treat the solitary brain lesion. I briefly discussed the options of surgery but believe with her poor performance status that she would not be a good candidate for surgical intervention, the patient was not interested in further discussing surgery with a neurosurgeon. I discussed options for using radiation therapy for the treatment of brain metastases including whole brain radiation therapy (WBRT) and stereotactic radiosurgery/fractionated stereotactic radiation therapy (SRS/FSRT). Generally the recommendation for which approach to take is determined by the number of metastatic lesions identified on MRI, and WBRT is the preferred method for greater than 10-15 metastatic lesions. I discussed the pros and cons of each approach and given that she only has an isolated lesion involving the left cerebellum I would recommend more focal radiation to spare her the potential toxicities of whole brain radiation therapy. I discussed that this would result in a high level of local control but that she would be at risk for further development of disease at disparate sites within the brain and therefore continued monitoring with MRI imaging would be required following therapy. Given the location with the tumor appearing to spread onto the medulla across the cerebellar peduncle I believe that FSRT with 5 fractions would likely be the most appropriate approach. I also discussed the option for palliative radiation therapy to the bone metastasis present in the left scapula. On exam she is asymptomatic in this area and would like to wait on any further therapy there. I discussed the logistics of FSRT including CT simulation with a mask making session, treatment planning, and likely 5 fractions of treatment. I explained that unfortunately we do not have the ability to complete this therapy here but I would recommend that she pursue this at the [facility]. I discussed the potential acute and long-term toxicities associated with FSRT and this would include but is not limited to fatigue, patchy hair loss, mild skin irritation, alterations in hearing, radiation necrosis, and nerve damage resulting in weakness or numbness. I discussed the alternatives, risks, and benefits to FSRT and addressed all questions. Patient is still considering her options and is unclear about how aggressive she wants to be. I recommended radiation to the brain lesion regardless of her pursuit of systemic therapy given her current symptoms and the likelihood that this lesion will greatly affect her quality of life even if she enters into hospice care. She is planning to meet with medical oncology on 01/31/18 to further discuss systemic therapy. Following her discussion the patient agreed to pursue FSRT and we will coordinate a consult CT simulation for her at the [facility] in the near future. She was given prescriptions for Decadron 4 mg twice daily and omeprazole 20 mg daily. She was instructed to call with any further questions or concerns. Thank you for allowing me to participate in the management and care of your patient. If I may answer any questions in the interim, please do not hesitate to contact me at any time. Darinel Nguyen DO, MS Rooter Operator, Department of Radiation Oncology [facility]
== END 2018-02-04 12:00 | disposition home or self-care (01) ==
LOC: RAO 10:30
PROVIDERS: Family Provider Physician Assistant; PCP Physician Assistant; Visit Provider Internal Medicine Hematology & Oncology
DX: C34.12 Malignant neoplasm of upper lobe, left bronchus or lung (principal)
CPT/HCPCS: 78815; A9552

== ENCOUNTER → 2018-04-18 12:04 | Outpatient (CLI) | payer MEDICARE, SELFPAY ==
--- NOTE | 2018-04-18 12:09 | MRI_ITS ---
STUDY: MRI BRAIN WITH AND WITHOUT CONTRAST REASON FOR EXAM: Female, 67 years old. Brain metastases TECHNIQUE: Standardized multiplanar fat and water weighted pulse sequences were obtained. 5 ml of Gadavist contrast material was administered intravenously for the contrast portion of the examination. COMPARISON: January 24, 2018 FINDINGS: Moderate atrophy and mild periventricular white matter ischemic changes without evidence for acute infarct.. Chronic ischemic changes within the murtaza. Tiny old lacunar infarct in left basal ganglia and right internal capsule.. Normal thalami. There is no extra-axial fluid accumulation. Chronic ischemic changes in right cerebellar hemisphere. There is also a lesion within the left cerebellum measuring approximately 1.15 x 0.9 cm which demonstrates mild enhancement following contrast demonstration Normal flow voids within the major intracranial circulation suggesting patency by spin echo criteria. Normal venous enhancement. There is no enhancing intra-axial or extra-axial abnormality. Normal sella turcica, pituitary gland, infundibular stalk, optic chiasm and hypothalamus. Normal tectal plate and pineal gland. Normal midbrain, and medulla. Normal basal cisterns. Normal bilateral temporal bones. Normal bilateral internal auditory canals. No demonstrated orbital abnormality, within the constraints of a routine brain study. Normal visualized paranasal sinuses. Normal calvarium and skull base. Normal visualized soft tissue structures. Normal visualized upper cervical spine. The left dentate nuclei lesion has decreased in size substantially since prior study MRI/Brain W/WO Contrast IMPRESSION: Mild chronic ischemic changes within the white matter and old tiny lacunar infarcts.. Persistent enhancing left cerebellar metastasis with significant reduction in size since prior study. No new enhancing lesions identified at this time Electronically Signed: Michael Dias MD at 21:22 EDT , Service support ,
[2018-04-18 12:40] LABS: CREATININE FINGERSTICK < 0.6 mg/dL (0.55-1.02); EGFR FINGERSTICK > 60.0000 mL/min (>60)
== END ==
PROVIDERS: Family Provider Physician Assistant; PCP Physician Assistant; Visit Provider Student in an Organized Health Care Education/Training Program
DX: C79.31 Secondary malignant neoplasm of brain (principal)
CPT/HCPCS: 70553; A9585

== ENCOUNTER → 2018-04-21 15:50 | Outpatient (CLI) | payer MEDICARE, SELFPAY ==
--- NOTE | 2018-04-21 16:00 | RAD_ITS ---
STUDY: X-RAY - LEFT FOOT CLINICAL: Female, 67 years old. Severe left foot pain, history of metastatic lung cancer, evaluate for metastatic disease. TECHNIQUE: 3 view(s) of the foot. COMPARISON: None. FINDINGS: There is a large plantar aspect calcaneal spur. There mild degenerative changes of the first metatarsophalangeal joint. There is a 3.5 mm in length radiopacity appearing to represent a sewing needle fragment in the soft tissues of the plantar aspect of the left foot adjacent to the mid shaft of the second metatarsal. There is no evidence of fracture, dislocation, or lytic or blastic osseous process. RAD/Foot min 3 Views IMPRESSION: There is no evidence of osseous metastatic disease. There is a large plantar aspect calcaneal spur. There are mild degenerative changes of the first metatarsophalangeal joint. 3.5 mm in length radiopacity appearing to represent a sewing needle fragment in the soft tissues of the plantar aspect of the left foot adjacent to the midshaft of the second metatarsal. Electronically Signed: Maxwell Villalobos MD at 16:34 EDT , Service support ,
== END ==
PROVIDERS: Family Provider Physician Assistant; PCP Physician Assistant; Visit Provider Student in an Organized Health Care Education/Training Program
DX: M79.672 Pain in left foot (principal); C34.12 Malignant neoplasm of upper lobe, left bronchus or lung; C79.51 Secondary malignant neoplasm of bone
CPT/HCPCS: 73630; J7030